=== PATIENT | male | born 1970 | race Caucasian/White ===

== ENCOUNTER 2020-09-18 12:53 | Inpatient (IN) | payer SELFPAY ==
--- NOTE | 2020-09-18 15:03 | ECG_ITS ---
Test Reason : ABDOMINAL/BACK PAIN Blood Pressure : / mmHG Vent. Rate : 078 BPM Atrial Rate : 078 BPM P-R Int : 136 ms QRS Dur : 090 ms QT Int : 416 ms P-R-T Axes : 054 036 018 degrees QTc Int : 474 ms Normal sinus rhythm with sinus arrhythmia Minimal voltage criteria for LVH, may be normal variant Nonspecific ST and T wave abnormality Abnormal ECG No previous ECGs available Referred By: Ranjana Jones Electronically Signed By:ROBLES BERKOWITZ MD
--- NOTE | 2020-09-18 15:04 | XR_ITS ---
EXAMINATION: 1. RADIOGRAPHS CHEST 2. RADIOGRAPHS LUMBAR SPINE CLINICAL INFORMATION: Intermittent right-sided chest pain and arm tingling. Low back pain. COMPARISON: Chest x-ray 09/14/2019 TECHNIQUE: 2 views of the chest and 3 views of the lumbar spine were obtained. FINDINGS: CHEST: The cardiac silhouette is normal in size. The lungs are well aerated. There is no lobar consolidation. No pleural effusion or pneumothorax. No gross abnormality of the visualized thoracic spine. LUMBAR SPINE: 5 nonrib-bearing lumbar vertebral bodies are visualized. Alignment is within normal limits. Vertebral body heights and disc spaces are maintained. Sacroiliac joints are symmetric. XR/XR chest 2V IMPRESSION: 1. No acute pulmonary pathology. 2. Unremarkable radiographs of the lumbar spine.
--- NOTE | 2020-09-18 15:10 | PC.NURSE ---
PT TAKEN TO CT SCAN VIA STRETCHER
--- NOTE | 2020-09-18 15:14 | XR_ITS ---
EXAMINATION: 1. RADIOGRAPHS CHEST 2. RADIOGRAPHS LUMBAR SPINE CLINICAL INFORMATION: Intermittent right-sided chest pain and arm tingling. Low back pain. COMPARISON: Chest x-ray 09/14/2019 TECHNIQUE: 2 views of the chest and 3 views of the lumbar spine were obtained. FINDINGS: CHEST: The cardiac silhouette is normal in size. The lungs are well aerated. There is no lobar consolidation. No pleural effusion or pneumothorax. No gross abnormality of the visualized thoracic spine. LUMBAR SPINE: 5 nonrib-bearing lumbar vertebral bodies are visualized. Alignment is within normal limits. Vertebral body heights and disc spaces are maintained. Sacroiliac joints are symmetric. XR/XR lumbar spine 2-3V IMPRESSION: 1. No acute pulmonary pathology. 2. Unremarkable radiographs of the lumbar spine.
[2020-09-18] MEDS: LORazepam 1 MG TABLET PO (15:19)
--- NOTE | 2020-09-18 15:20 | PC.NURSE ---
pt asking if he can take some time to let anxiety medication set in before iv placement.
--- NOTE | 2020-09-18 16:32 | ED.GENADULT ---
HPI - General Adult General Chief complaint: Back Pain/Injury Stated complaint: back and abdominal pain Time Seen by Provider: 09/18/20 14:30 Source: patient Mode of arrival: ambulatory Limitations: no limitations History of Present Illness HPI narrative: 50yoM c No Sig PMHx reports a chronic hx of upper back pain although also has not seen a PCP in years presenting to the ED c c/o intermittent Right sided chest pain, Right arm tingling, SOB with laying down flat/exertion, right abdominal pain and lower back pain for the past 1-2 weeks. Denies radiating of the chest pain. Denies recent travel or sick contacts although patient works at [employer]. Denies any other symptom complaints or concerns at this time. Related Data Allergies Allergy/AdvReac Type Severity Reaction Status Date / Time No Known Allergies Allergy Unverified 07/21/20 17:31 Review of Systems Review of Systems: Constitutional : No Weight loss, No Fever, No Chills, No Night Sweats, No Fatigue, No Malaise ENT/Mouth : No Hearing loss, No Ear Pain, No Nasal Congestion, No Sinus Pain, No Hoarseness, No sore throat, No Rhinorrhea, No Swallowing Difficulty Eyes: No Eye Pain, No Swelling, No Redness, No Foreign Body, No Discharge, No Vision Changes Cardiovascular : + SOB, + Dyspnea on Exertion, + Orthopnea, + Chest pain, No Edema, No extremity swelling, No Palpitations Respiratory : No Cough, No Sputum, No Wheezing, + Dyspnea Gastrointestinal : No Nausea, No Vomiting, No Diarrhea, + abdominal Pain, No Hematochezia, No Melena Genitourinary : No irregular bleeding, No Dysuria, No Urinary Frequency, No Hematuria, No Urinary Incontinence, No Urgency, No Flank Pain, No Urinary Flow Changes, No Hesitancy Musculoskeletal : + Neck and Back pain, No Joint Swelling Skin : No Skin Lesions, No rash Neuro : No Weakness, No Numbness, No Paresthesias, No Loss of Consciousness, No Dizziness, No Headache Psych : No Anxiety/Panic, No Depression, No SI/HI/AH/VH Heme/Lymph: No Bruising, No Bleeding,No Lymphadenopathy Endocrine : No Polyuria, No Polydipsia, No Temperature Intolerance Yes all other systems are reviewed and are negative [facility] Past Medical History Attestation statement: The following information was validated with the patient. Medical History No known health problems Social History Social History Advance Directives: No Advance Directives Information Provided: Yes Physical Exam Vital Signs: Vital Signs: Last Vital Signs Temp 98.1 F 09/18/20 16:43 Pulse 78 09/18/20 16:43 Resp 14 09/18/20 16:43 BP 141/77 H 09/18/20 16:43 Pulse Ox 98 09/18/20 16:43 Body Mass Index 27.3 vital signs have been reviewed as normal and appeared to be correct. Blood pressure normal. Heart rate normal. Respiration rate normal. Temperature normal. Oxygen saturation normal. Appearance: Alert. Oriented X3. No acute distress. Head: Normal external exam. Normocephalic. Atraumatic. Eyes: PERRLA. EOMI. Conjunctiva and sclera normal. Eyelids normal. ENT: Pharynx normal. Uvula midline. Moist mucous membranes. Neck: Normal inspection. Neck supple. FROM. No adenopathy. No meningeal signs. CVS: Normal heart rate and rhythm. Heart sound normal. No murmurs noted. Pulses normal throughout. Respiratory: No respiratory distress. Painless inspiration. Breath sounds normal. No wheezes/rales/rhonchi noted. Chest nontender. No accessory muscle usage noted or decreased air movement noted. Abdomen: Soft and nontender. Bowel sounds normal in all 4 quadrants. No distention noted. No organomegaly noted. No visible injury noted. Back: No CVA tenderness. Full range of motion noted. No obvious deformities, or edema. Mild para-spinal muscular tenderness from lumbar region to coccyx. Full ROM in back and lower extremities. 5/5 strength hip extension/flexion, abduction, adduction. Mild Lumbar pain with hip flexion against resistance. Straight leg raise test negative on right; Straight leg raise test negative on left; Reflexes normal ankle and knee bilaterally; EHL motor strength normal bilaterally Skin: Skin warm and dry. Normal skin color. Normal skin turgor. No rashes/lesions/lacerations noted. Extremities: No lower extremity edema. Extremities exhibit normal range of motion. Extremities nontender. Neuro: Oriented X 3. No motor deficit. No sensory deficit. Reflexes normal. Course Course Course Narrative: 16:30pm - 50yoM c No Sig PMHx reports a chronic hx of upper back pain although also has not seen a PCP in years presenting to the ED c c/o intermittent Right sided chest pain, Right arm tingling, SOB with laying down flat/exertion, right abdominal pain and lower back pain for the past 1-2 weeks. - Concern for ACS vs Muscular strain. - Plan: Labs, CXR, EKG, Lumbar spine Xray Reevaluation(s) Reevaluation #1: - D-Dimer elevated at 896. BUN 28. Total bilirubin 1.2. Troponin 5.7. Chest x-ray within normal limits no acute processes noted. Lumbar spine x-ray within normal limits no acute processes noted. - due to D-dimer being elevated will obtain a CTA of chest to rule out PE or any other acute processes, CT scan of brain, CT scan of abdomen and pelvis due to patient's abdominal pain. Will repeat a troponin at 19:25 due to 1st troponin was elevated then re-evaluate. Sign out the candy at this time. Time: 17:08 Medical Decision Making Medical Records Medical records reviewed: Yes I reviewed the patient's medical records. Lab Data Lab results reviewed: Yes I reviewed the patient's lab results. Result diagrams: 09/18/20 16:25 09/18/20 16:25 Labs: Lab Results 09/18/20 09/18/20 09/18/20 Range/Units 16:25 16:25 16:25 WBC 9.7 (4.8-10.8) X10*3/uL RBC 5.13 (4.60-5.80) X10*6/uL Hgb 15.0 (14.0-18.0) g/dl Hct 45.0 (42-52) % MCV 87.7 (80-98) fL MCH 29.2 (27.0-33.0) pg MCHC 33.3 (31.0-36.0) g/dl RDW 13.3 (11.0-16.0) % Plt Count 287 (160-400) X10*3/uL MPV 9.8 (9.4-12.4) fL Immature Gran % (Auto) 0.8 H (0.0-0.4) % Neut % (Auto) 57.1 (45-73) % Lymph % (Auto) 28.3 (20-40) % Riley % (Auto) 8.1 (2-11) % Eos % (Auto) 5.2 H (0-4) % Baso % (Auto) 0.5 (0-2) % Lymph # (Auto) 2.7 (1.2-4.9) X10*3/uL Riley # (Auto) 0.8 (0.1-1.2) X10*3/uL Eos # (Auto) 0.5 H (0.0-0.4) X10*3/uL Baso # (Auto) 0.1 (0.0-0.2) X10*3/uL Abs Immat Gran (auto) 0.08 H (0.00-0.03) X10*3/uL Absolute Neuts (auto) 5.5 (2.0-8.3) X10*3/uL Absolute Nucleated RBC 0.000 (0.0-0.012) X10*3/uL Nucleated RBC % (auto) 0.0 (0.0-0.2) /100WBC PT 14.9 H (10.8-13.0) SEC INR 1.3 H (0.9-1.1) D-Dimer 896 NG/ML Sodium 137 (135-145) mmol/L Potassium 3.8 (3.3-5.1) mmol/l Chloride 99 (96-108) mmol/L Carbon Dioxide 28 (22-29) mmol/L Anion Gap 14 (12-20) BUN 28 H (9-16) mg/dL Creatinine 1.28 (0.5-1.4) mg/dL Estim Creat Clear Calc 70.5 Estimated GFR 60 Random Glucose 99 (60-115) mg/dL Calcium 8.7 (8.4-10.2) mg/dL Magnesium 2.3 (1.6-2.6) mg/dL Total Bilirubin 1.2 H (0.0-1.0) mg/dL Direct Bilirubin 0.5 (0.0-0.5) mg/dL AST 22 (5-37) U/L ALT 21 (0-40) U/L Alkaline Phosphatase 82 (39-117) U/L Troponin I High Sens (<3.5-35.0) ng/L B-Natriuretic Peptide (<100) pg/mL Total Protein 7.4 (6.5-8.0) g/dL Albumin 4.0 (3.5-5.0) g/dL Urine Color Urine Appearance Urine pH (5.0-8.0) Ur Specific [place] (1.005-1.025) Urine Protein (NEG-TRACE) MG/DL Urine Glucose (UA) (NEG) MG/DL Urine Ketones (NEG) MG/DL Urine Blood (NEG) Urine Nitrite (NEG) Ur Leukocyte Esterase (NEG) Urine RBC (0) /HPF Urine WBC (0-4) /HPF Ur Squamous Epith Cells /LPF Amorphous Sediment /LPF Urine Bacteria /LPF Granular Casts /LPF Urine Mucus /LPF 09/18/20 09/18/20 Range/Units 16:25 16:25 WBC (4.8-10.8) X10*3/uL RBC (4.60-5.80) X10*6/uL Hgb (14.0-18.0) g/dl Hct (42-52) % MCV (80-98) fL MCH (27.0-33.0) pg MCHC (31.0-36.0) g/dl RDW (11.0-16.0) % Plt Count (160-400) X10*3/uL MPV (9.4-12.4) fL Immature Gran % (Auto) (0.0-0.4) % Neut % (Auto) (45-73) % Lymph % (Auto) (20-40) % Riley % (Auto) (2-11) % Eos % (Auto) (0-4) % Baso % (Auto) (0-2) % Lymph # (Auto) (1.2-4.9) X10*3/uL Riley # (Auto) (0.1-1.2) X10*3/uL Eos # (Auto) (0.0-0.4) X10*3/uL Baso # (Auto) (0.0-0.2) X10*3/uL Abs Immat Gran (auto) (0.00-0.03) X10*3/uL Absolute Neuts (auto) (2.0-8.3) X10*3/uL Absolute Nucleated RBC (0.0-0.012) X10*3/uL Nucleated RBC % (auto) (0.0-0.2) /100WBC PT (10.8-13.0) SEC INR (0.9-1.1) D-Dimer NG/ML Sodium (135-145) mmol/L Potassium (3.3-5.1) mmol/l Chloride (96-108) mmol/L Carbon Dioxide (22-29) mmol/L Anion Gap (12-20) BUN (9-16) mg/dL Creatinine (0.5-1.4) mg/dL Estim Creat Clear Calc Estimated GFR Random Glucose (60-115) mg/dL Calcium (8.4-10.2) mg/dL Magnesium (1.6-2.6) mg/dL Total Bilirubin (0.0-1.0) mg/dL Direct Bilirubin (0.0-0.5) mg/dL AST (5-37) U/L ALT (0-40) U/L Alkaline Phosphatase (39-117) U/L Troponin I High Sens 5.7 (<3.5-35.0) ng/L B-Natriuretic Peptide < 10 (<100) pg/mL Total Protein (6.5-8.0) g/dL Albumin (3.5-5.0) g/dL Urine Color DARK YELLOW Urine Appearance CLEAR Urine pH 5.5 (5.0-8.0) Ur Specific [place] >= 1.030 H (1.005-1.025) Urine Protein 1+ H (NEG-TRACE) MG/DL Urine Glucose (UA) NEG (NEG) MG/DL Urine Ketones NEG (NEG) MG/DL Urine Blood 3+ H (NEG) Urine Nitrite NEG (NEG) Ur Leukocyte Esterase NEG (NEG) Urine RBC 1-4 (0) /HPF Urine WBC 0-2 (0-4) /HPF Ur Squamous Epith Cells 2+ /LPF Amorphous Sediment 1+ /LPF Urine Bacteria TRACE /LPF Granular Casts 0-2 /LPF Urine Mucus 2+ /LPF Imaging Data cxr and lumar spine xray: Attestation: I personally reviewed and interpreted this imaging study as follows: Radiologist's impression: IMPRESSION: 1. No acute pulmonary pathology. 2. Unremarkable radiographs of the lumbar spine. ECG Data Attestation: I personally reviewed and interpreted this ECG as follows: Interpretation: Normal sinus rhythm with sinus arrhythmia with ventricular rate of 78 with minimal LVH nonspecific ST and T wave abnormalities normal QT/QTC interval. No acute ischemic changes. No prior EKGs to compare to.
[2020-09-18 16:34] LABS: Basophils Absolute Auto 0.1 X10*3/uL (0.0-0.2); Basophils Percent Auto 0.5 % (0-2); Eosinophils Absolute Auto 0.5 X10*3/uL (0.0-0.4); Eosinophils Percent Auto 5.2 % (0-4); Imm Gran Abs Auto 0.08 X10*3/uL (0.00-0.03); Imm Gran Pct Auto 0.8 % (0.0-0.4); Lymphocytes Absolute Auto 2.7 X10*3/uL (1.2-4.9); Lymphocytes Percent Auto 28.3 % (20-40); MANUAL DIFF FLAG NO; Mean Corpuscular HGB Conc 33.3 g/dl (31.0-36.0); Mean Corpuscular Hemoglobin 29.2 pg (27.0-33.0); Mean Corpuscular Volume 87.7 fL (80-98); Mean Platelet Volume 9.8 fL (9.4-12.4); Monocytes Absolute Auto 0.8 X10*3/uL (0.1-1.2); Monocytes Percent Auto 8.1 % (2-11); Neutrophils Absolute Auto 5.5 X10*3/uL (2.0-8.3); Neutrophils Percent Auto 57.1 % (45-73); Platelet Count 287 X10*3/uL (160-400); Red Blood Count 5.13 X10*6/uL (4.60-5.80); Red Cell Distribution Width 13.3 % (11.0-16.0); White Blood Count 9.7 X10*3/uL (4.8-10.8)
[2020-09-18 16:37] LABS: Glucose Urine UA NEG (NEG); Leukocyte Esterase Urine NEG (NEG); Nitrite Urine NEG (NEG); PH 5.5 (5.0-8.0); Specific Gravity - Urine >= 1.030 (1.005-1.025); Urine Blood 3+ (NEG); Urine Ketones NEG (NEG); Urine Protein 1+ MG/DL (NEG-TRACE)
[2020-09-18 16:41] LABS: INTERNATIONAL NORM RATIO 1.3 (0.9-1.1); Prothrombin Time 14.9 SEC (10.8-13.0)
[2020-09-18 16:43] VITALS: BP 141/77; PULSE 78; RESP 14; TEMP 36.7; O2SAT 98; BMI 27.3
[2020-09-18 16:43] LABS: Appearance Urine CLEAR; Color Urine DARK YELLOW
[2020-09-18 16:44] LABS: D Dimer 896 NG/ML
[2020-09-18] MEDS: 0.9 % Sodium Chloride 1,000 ML 999 ML IVCONT (16:46)
[2020-09-18 16:51] LABS: Amorphous Sediment Urine 1+ /LPF; Bacteria Urine TRACE /LPF; Granular Casts Urine 0-2 /LPF; Mucus Urine 2+ /LPF; Squamous Epithelial Cell Urine 2+ /LPF; WBC Urine 0-2 /HPF (0-4)
[2020-09-18 16:56] LABS: Alanine Aminotransferase 21 U/L (0-40); Alkaline Phosphatase 82 U/L (39-117); Anion Gap 14 (12-20); Aspartate Amino Transferase 22 U/L (5-37); Bilirubin Direct 0.5 mg/dL (0.0-0.5); Bilirubin Total 1.2 mg/dL (0.0-1.0); Blood Urea Nitrogen 28 mg/dL (9-16); Calcium 8.7 mg/dL (8.4-10.2); Carbon Dioxide 28 mmol/L (22-29); Chloride 99 mmol/L (96-108); Creatinine Clr Calc Pharmacy 70.5; Estimated Glomerular Filt Rate 60; Glucose Random 99 mg/dL (60-115); Magnesium 2.3 mg/dL (1.6-2.6); Potassium 3.8 mmol/l (3.3-5.1); Sodium 137 mmol/L (135-145); Total Protein 7.4 g/dL (6.5-8.0)
[2020-09-18 17:02] LABS: B Type Natriuretic Peptide < 10 pg/mL (<100); Troponin-I High Sensitivity 5.7 ng/L (<3.5-35.0)
--- NOTE | 2020-09-18 17:06 | CT_ITS ---
EXAMINATION: CT HEAD WITHOUT CONTRAST CLINICAL INFORMATION: Dizziness COMPARISON: None TECHNIQUE: Contiguous axial imaging was performed from the skull base to vertex without intravenous administration of contrast. This CT examination was performed using dose optimization techniques as appropriate, variously including the following: *Automated exposure control *Adjustment of mA and/or kV according to patient size (this includes techniques or standardized protocols for targeted exams where dose is matched to indication/reason for exam; i.e. extremities or head) *Use of iterative reconstruction technique DLP: 2163 mGy-cm FINDINGS: There is no evidence of acute intracranial hemorrhage or territorial infarction. No abnormal mass effect or midline shift is seen. Alonso to white matter differentiation is well preserved. No extra-axial fluid collections are identified. The ventricles are normal in size. There is no abnormal attenuation within the brain parenchyma. The osseous structures and soft tissues are normal. The mastoid air cells and visualized portions of the paranasal sinuses are well aerated. CT/CT head/brain wo con IMPRESSION: No acute intracranial pathology.
--- NOTE | 2020-09-18 17:06 | CT_ITS ---
EXAMINATION CTA CHEST (pulmonary artery urogram) CT ABDOMEN AND PELVIS WITH CONTRAST CLINICAL INFORMATION: Chest pain and shortness of breath COMPARISON: None. TECHNIQUE: Multidetector volumetric CT imaging of the chest, abdomen and pelvis was obtained after the administration of 85 mL of intravenous Omnipaque 350 without immediate adverse reactions. Postcontrast imaging through the chest was carried out during the pulmonary angiographic phase. Imaging of the abdomen and pelvis was performed during the portal venous phase. Multiplanar reformats and maximal intensity projection images created on an independent workstation are reviewed. This CT examination was performed using dose optimization techniques as appropriate, variously including the following: *Automated exposure control *Adjustment of mA and/or kV according to patient size (this includes techniques or standardized protocols for targeted exams where dose is matched to indication/reason for exam; i.e. extremities or head) *Use of iterative reconstruction technique DLP: 2163 mGy-cm. FINDINGS: CHEST VASCULAR: No evidence of pulmonary embolism. Great vessels normal caliber. No aortic dissection. LUNGS/PLEURA: The lungs are clear with no evidence of inflammation or nodules. Mild right basilar subsegmental atelectasis. There is no pleural effusion. No pleural mass or thickening. MEDIASTINUM/MANNY: Heart normal in size without pericardial effusion. No mediastinal or hilar adenopathy. Central airways are patent. Esophagus unremarkable. Imaged lower neck is normal. CHEST WALL/AXILLA: Unremarkable. ABDOMEN/PELVIS HEPATOBILIARY: Liver normal in size, contour and morphology. No suspicious lesions. Gallbladder is markedly abnormal showing wall thickening and pericholecystic fat stranding. The pericholecystic inflammatory changes extend into the haley hepatis. No intra or extrahepatic biliary dilatation. PANCREAS: Unremarkable. SPLEEN: Unremarkable. ADRENAL GLANDS: Unremarkable. KIDNEYS, URETERS AND BLADDER: Kidneys normal in size, axis and morphology demonstrating symmetric enhancement. There is a 1.2 cm simple cyst within the medial cortex of the right kidney. No hydronephrosis or urinary calculi. Ureters normal in course and caliber. Bladder grossly unremarkable. GASTROINTESTINAL TRACT: No intestinal obstruction or inflammation. Incidental diverticulum emanating from the descending duodenum, posterior to the pancreatic head. Scattered sigmoid colonic diverticula without evidence of diverticulitis. Normal appendix. Incidental submucosal fat deposition within the ascending colon, nonspecific. PELVIC VISCERA: Unremarkable. LYMPH NODES: No lymphadenopathy. PERITONEUM/BODY WALL: Unremarkable. VASCULAR STRUCTURES: Aorta mildly atherosclerotic but normal caliber. Patent vascular structures. OSSEOUS STRUCTURES No acute or suspicious osseous abnormalities. CT/CT angio chest PE protocol IMPRESSION: CT PULMONARY ANGIOGRAM: No evidence of pulmonary embolism. No acute pulmonary process. CT ABDOMEN/PELVIS: Markedly inflamed gallbladder compatible with cholecystitis. Scattered left colonic diverticula without evidence of diverticulitis.
--- NOTE | 2020-09-18 17:55 | PC.NURSE ---
pt taken to ct scan via stretcher,
[2020-09-18] MEDS: iohexoL 350 MG/ML 100 ML INFUS..BTL IV (18:19)
--- NOTE | 2020-09-18 19:21 | US_ITS ---
EXAMINATION: US ABDOMEN LIMITED CLINICAL INFORMATION: Cholecystitis.. COMPARISON: CT performed earlier same date. TECHNIQUE: Real-time imaging of the gallbladder and common bile duct. FINDINGS: GALLBLADDER: Sludge and stones are present within the gallbladder, which is edematous wall thickening, and intramural hyperemia and pericholecystic inflammation. Sonographic Oliveros sign is positive. COMMON BILE DUCT: Normal in caliber measuring 0.6 cm in diameter. US/US abdomen limited IMPRESSION: Sonographic findings compatible with cholecystitis.
[2020-09-18] MEDS: Piperacillin Sodium/Tazobactam 3.375 GM in 0.9 % Sodium Chloride 50 ML IV (19:39)
[2020-09-18 19:57] LABS: Lactic Acid 0.8 mmol/L (0.5-2.0)
[2020-09-18 20:07] LABS: Troponin-I High Sensitivity 5.2 ng/L (<3.5-35.0)
[2020-09-18 21:11] LABS: COVID-19 Test Negative (Negative)
--- NOTE | 2020-09-18 21:37 | P.CONGS_ITS ---
History of Present Illness Consult details Consult date: 09/18/20 Requesting physician: Flower Connor Narrative: 50 yo male w/out any PMHx presents to the [place] ED for multiple complaints including Right sided ABD/Back pain which has been ongoing for 1-2 weeks. Additionally he complains of intermittent Right sided chest pain, Right arm tingling, SOB with laying down flat/exertion. Denies radiating of the chest pain. Denies any other symptom complaints or concerns at this time. Denies vomiting or diarrhea though he did have some nausea. He had multiple test performed including head, chest and ABD CT's. Chest and Lumbar spine XR's. ABD CT suggested cholecystitis and an ABD U/S confirmed cholecystits w/ stones. WBC 9.7, BUN 28, Tbili 1.2 D-Dimer elevated at 896. Troponin 5.7. VSS. EKG showed NSR, no ischemic changes. Surgery was consulted for further evaluation and care. He was assessed at bed- side. He states he is feeling better and that his chest and back pain has resolved. He continues to complain of Right-sided ABD pain but currently with pain medications it is a 3/10. Review of Systems Constitutional: Constitutional: Reports as per HPI Cardiovascular: Cardiovascular: Reports chest pain, Reports dyspnea and Reports orthopnea Respiratory: Respiratory: Reports dyspnea Gastrointestinal: Gastrointestinal: Reports abdominal pain Musculoskeletal: Musculoskeletal: Reports tingling (Right arm) Neurologic: Reports tingling (Right arm) [facility] Past Medical History Medical History No known health problems Social History Social History Alcohol intake: current Alcohol intake frequency: holidays/special occasions only Alcohol type: beer Smoking Status: Never smoker Substance Use Type: Marijuana service: No Current occupational status: employed Meds Allergies Allergy/AdvReac Type Severity Reaction Status Date / Time No Known Allergies Allergy Verified 10/05/20 15:27 Physical Exam Vital Signs: Vital Signs: Last Vital Signs Temp 98.1 F 09/18/20 16:43 Pulse 78 09/18/20 16:43 Resp 14 09/18/20 16:43 BP 141/77 H 09/18/20 16:43 Pulse Ox 98 09/18/20 16:43 Body Mass Index 27.3 Const: General: no acute distress and poor hygiene Cardio: Rate: regular rate GI: Inspection: Yes normal to inspection and Yes scar (hernia repair) Palpation (GI): Soft to palpation and Tenderness to palpation present (GI) in the RLQ and in the RUQ Auscultation: normal bowel sounds : General: Yes no CVA tenderness Back/Spine/Pelvis: Back: no CVA tenderness Skin: General skin exam: no rashes or lesions noted Results Labs Result diagrams: 09/20/20 16:34 09/20/20 08:46 Labs: Abnormal lab results 09/18/20 09/18/20 09/18/20 Range/Units 16:25 16:25 16:25 Immature Gran % (Auto) 0.8 H (0.0-0.4) % Eos % (Auto) 5.2 H (0-4) % Eos # (Auto) 0.5 H (0.0-0.4) X10*3/uL Abs Immat Gran (auto) 0.08 H (0.00-0.03) X10*3/uL PT 14.9 H (10.8-13.0) SEC INR 1.3 H (0.9-1.1) BUN 28 H (9-16) mg/dL Total Bilirubin 1.2 H (0.0-1.0) mg/dL Ur Specific [place] (1.005-1.025) Urine Protein (NEG-TRACE) MG/DL Urine Blood (NEG) 09/18/20 Range/Units 16:25 Immature Gran % (Auto) (0.0-0.4) % Eos % (Auto) (0-4) % Eos # (Auto) (0.0-0.4) X10*3/uL Abs Immat Gran (auto) (0.00-0.03) X10*3/uL PT (10.8-13.0) SEC INR (0.9-1.1) BUN (9-16) mg/dL Total Bilirubin (0.0-1.0) mg/dL Ur Specific [place] >= 1.030 H (1.005-1.025) Urine Protein 1+ H (NEG-TRACE) MG/DL Urine Blood 3+ H (NEG) Short CBC 09/18/20 Range/Units 16:25 WBC 9.7 (4.8-10.8) X10*3/uL Hgb 15.0 (14.0-18.0) g/dl Hct 45.0 (42-52) % Plt Count 287 (160-400) X10*3/uL BMP 09/18/20 16:25 Sodium 137 Potassium 3.8 Chloride 99 Carbon Dioxide 28 BUN 28 H Creatinine 1.28 Calcium 8.7 Liver Function 09/18/20 Range/Units 16:25 Total Bilirubin 1.2 H (0.0-1.0) mg/dL Direct Bilirubin 0.5 (0.0-0.5) mg/dL AST 22 (5-37) U/L ALT 21 (0-40) U/L Alkaline Phosphatase 82 (39-117) U/L Albumin 4.0 (3.5-5.0) g/dL Urine 09/18/20 Range/Units 16:25 Urine Color DARK YELLOW Urine Appearance CLEAR Urine pH 5.5 (5.0-8.0) Ur Specific [place] >= 1.030 H (1.005-1.025) Urine Protein 1+ H (NEG-TRACE) MG/DL Urine Glucose (UA) NEG (NEG) MG/DL All other labs normal. Imaging Chest x-ray: report reviewed Abdomen CT scan report/results: report reviewed Abdominal ultrasound report/results: report reviewed EKG: report reviewed Assessment and Plan (1) Cholecystitis with cholelithiasis: Qualifiers: Biliary obstruction: without biliary obstruction Cholecystitis acuity: acute Cholelithiasis location: gallbladder Qualified Code(s): K80.00 - Calculus of gallbladder with acute cholecystitis without obstruction Status: Acute 50 yo male with 1-2 weeks of intermittent ABD/Back pain. His ABD exam has mild Right-side discomfort and his WBC is WNL. He is in no acute distress. Admit to med/surg Pain mgmt IVF Surgical intervention with CCY was discussed with the patient. Procedures Abscess I/D Date of Service: 09/19/20
[2020-09-18] MEDS: 0.9 % Sodium Chloride 1,000 ML 100 ML IVCONT (23:41)
[2020-09-18] MEDS: 0.9 % Sodium Chloride Flush 3 ML SYRINGE IVFLUSH (23:41)
[2020-09-18 23:58] VITALS: BP 125/74; PULSE 67; RESP 20; TEMP 36.7; O2SAT 98
[2020-09-19] VITALS (7 sets, daily range): BP systolic 118–153; BP diastolic 86–94; PULSE 60–77; RESP 16–20; TEMP 36.6–37.1; O2SAT 96–99
[2020-09-19 06:37] LABS: MANUAL DIFF FLAG NO
[2020-09-19 07:01] LABS: Basophils Percent Auto 0.6 % (0-2); Eosinophils Absolute Auto 0.3 X10*3/uL (0.0-0.4); Eosinophils Percent Auto 5.1 % (0-4); Hematocrit 37.8 % (42-52); Hemoglobin 12.5 g/dl (14.0-18.0); Imm Gran Abs Auto 0.06 X10*3/uL (0.00-0.03); Imm Gran Pct Auto 0.9 % (0.0-0.4); Lymphocytes Absolute Auto 1.8 X10*3/uL (1.2-4.9); Lymphocytes Percent Auto 27.2 % (20-40); Mean Corpuscular HGB Conc 33.1 g/dl (31.0-36.0); Mean Corpuscular Hemoglobin 29.1 pg (27.0-33.0); Mean Corpuscular Volume 87.9 fL (80-98); Monocytes Absolute Auto 0.5 X10*3/uL (0.1-1.2); Monocytes Percent Auto 6.8 % (2-11); Neutrophils Percent Auto 59.4 % (45-73); Platelet Count 216 X10*3/uL (160-400); Red Cell Distribution Width 13.1 % (11.0-16.0); White Blood Count 6.7 X10*3/uL (4.8-10.8)
[2020-09-19 07:34] LABS: Anion Gap 13 (12-20); Blood Urea Nitrogen 22 mg/dL (9-16); Carbon Dioxide 22 mmol/L (22-29); Chloride 105 mmol/L (96-108); Estimated Glomerular Filt Rate > 60; Glucose Random 86 mg/dL (60-115); Potassium 3.3 mmol/l (3.3-5.1); Sodium 137 mmol/L (135-145)
[2020-09-19 07:51] LABS: Calcium 7.8 mg/dL (8.4-10.2)
[2020-09-19] MEDS: Piperacillin Sodium/Tazobactam 3.375 GM in 0.9 % Sodium Chloride 50 ML IV ×3 (08:25→19:59)
[2020-09-19] MEDS: 0.9 % Sodium Chloride 1,000 ML 100 ML IVCONT ×2 (08:28→18:29)
--- NOTE | 2020-09-19 08:58 | P.PNGS_ITS ---
Subjective Subjective Interval history: minimal pain no fever Anxious Says he is actually better today Physical Exam Vital Signs: Vital Signs: Last Vital Signs Temp 97.9 F 09/19/20 07:31 Pulse 69 09/19/20 07:31 Resp 18 09/19/20 07:31 BP 153/88 H 09/19/20 07:31 Pulse Ox 96 09/19/20 07:31 Body Mass Index 27.3 Chemistry 09/18/20 09/19/20 16:25 06:24 Sodium 137 137 Potassium 3.8 3.3 Carbon Dioxide 28 22 BUN 28 H 22 H Creatinine 1.28 0.94 Calcium 8.7 7.8 L D Hematology 09/18/20 09/19/20 16:25 06:24 WBC 9.7 6.7 Hgb 15.0 12.5 L Plt Count 287 216 Urinalysis 09/18/20 16:25 Urine Color DARK YELLOW Urine Appearance CLEAR Urine pH 5.5 Ur Specific Gravit y >= 1.030 H Urine Protein 1+ H Urine Glucose (UA) NEG Urine Ketones NEG Urine Blood 3+ H Urine Nitrite NEG Ur Leukocyte Suzy ase NEG Urine RBC 1-4 Urine WBC 0-2 Ur Squamous Epith Cells 2+ Const: General: comfortable and no acute distress Eyes: Sclerae: sclerae normal GI: Other: Abdomen soft, nondistended, no guarding or rebound, very minimal tenderness right upper quadrant at this time Progress Note: A&P Assessment and plan (1) Cholecystitis with cholelithiasis: Status: Acute Assessment and Plan: I have reviewed his imaging studies - note of gallbladder inflammatory changes He states that he has had issues of pain on his abdomen on and off for several weeks He has very minimal pain or tenderness now White count is low Clinical picture suggestive more of subacute cholecystitis I did explain to him the option of proceeding with laparoscopic cholecystectomy with possible open. I reviewed with him the risks including but not limited to bleeding, infections, injury to the bowel, liver, bile duct, retained stones, as well as the benefits and his alternatives. He understands that with the inflammatory changes around this gallbladder at this time, the risks of the above are higher than normal. I also reviewed with him the option of IV antibiotic treatment and allow the inflammatory changes to settle down before proceeding with surgery. He is very anxious about having to proceed with possible open cholecystectomy. He wants to see if the antibiotics will work with him as he has very minimal symptoms. He understands that if he does not get better continues to have significant problems, we still have to proceed with cholecystectomy. He says he wants to go this route with IV antibiotics for now. His Adry jesus as involved during the discussion. I have will follow along closely Fall Risk Details Current Medications: Current Medications Generic Name Dose Route Start Last Admin Trade Name Freq PRN Reason Stop Dose Admin Acetaminophen 650 mg 09/18/20 21:53 Acetaminophen Supp 650 Mg Supp.Rect [place] Q6H PRN Pain, Mild (Pain Scale 1-3) Sodium Chloride 1,000 mls @ 100 mls/hr 09/18/20 22:00 09/19/20 08:28 Ns IVCONT 100 mls/hr .Q10H SARAH Administration Piperacillin Sod/Tazobactam 50 mls @ 100 mls/hr 09/19/20 08:00 09/19/20 08:25 Sod 3.375 gm/ Sodium Chloride IV 100 mls/hr Q6H SARAH Administration Morphine Sulfate 4 mg 09/18/20 21:53 Morphine Sulfate 4 Mg/Ml Cartridge IVPUSH Q4H PRN Pain, Severe (Pain Scale 7-10) Sodium Chloride 3 ml 09/19/20 00:00 09/19/20 08:24 0.9 % Sodium Chloride Flush 3 Ml Syringe IVFLUSH Not Given QSHIFT SARAH Time Spent With Patient Time: Total time spent is greater than 50% in coordination of care (as documented) at patient's floor/unit and/or counseling patient: Time with patient: 25 - 35 minutes Procedures Abscess I/D Date of Service: 09/19/20
[2020-09-19 11:12] LABS: Alanine Aminotransferase 15 U/L (0-40); Albumin Level 3.2 g/dL (3.5-5.0); Alkaline Phosphatase 68 U/L (39-117); Aspartate Amino Transferase 19 U/L (5-37); Bilirubin Direct 0.3 mg/dL (0.0-0.5); Bilirubin Total 0.9 mg/dL (0.0-1.0); Total Protein 6.1 g/dL (6.5-8.0)
--- NOTE | 2020-09-19 13:31 | MHC.CM.PN ---
Pt reports he lives at home with his and is independent with all care and mobility. Pt works, has no services and no DME. Pt is unsure what his insurance is at this time, he believes he may have insurance through work or [employer]. pt reports he does not have a PCP and has no had one for quite some time. Pt does not have a HCP but would like to complete one today naming his , Gela Christiansen ([phone]) as his agent. Pts current DC plan is home with no services. Pt will self arrange transportation
--- NOTE | 2020-09-19 14:39 | PM.EVENT ---
Event Note Date of Service: 09/19/20 Event Note: He states he continues to feel well Denies significant pain on the right upper quadrant Says pain is minimal Abdomen remained soft, minimal tenderness on the right upper quadrant no guarding rebound As discussed earlier with the patient and -he wants to continue IV antibiotic treatment in view of improvement He is very anxious about the possibility of conversion to open cholecystectomy so he wants to continue nonoperative treatment at this time Continue IV Zosyn On clear liquids Clinically looks well
[2020-09-19] MEDS: Morphine Sulfate 4 MG/ML CARTRIDGE IVPUSH (16:15)
[2020-09-19] MEDS: ondansetron HCL 4 MG/2 ML VIAL IVPUSH (16:27)
[2020-09-20] MEDS: Piperacillin Sodium/Tazobactam 3.375 GM in 0.9 % Sodium Chloride 50 ML IV ×4 (02:10→20:29)
[2020-09-20 03:36] VITALS: BP 151/92; PULSE 71; RESP 16; TEMP 36.7; O2SAT 98
[2020-09-20] MEDS: 0.9 % Sodium Chloride 1,000 ML 100 ML IVCONT ×2 (04:02→14:32)
[2020-09-20 07:37] VITALS: BP 142/95; PULSE 76; RESP 19; TEMP 37.1; O2SAT 96
--- NOTE | 2020-09-20 08:10 | PM.PNGS ---
Subjective Subjective Interval history: feels much better denies significant pain wants to eat says he had a good night Physical Exam Vital Signs: Vital Signs: Last Vital Signs Temp 98.7 F 09/20/20 07:37 Pulse 76 09/20/20 07:37 Resp 19 09/20/20 07:37 BP 142/95 H 09/20/20 07:37 Pulse Ox 96 09/20/20 07:37 Body Mass Index 27.3 Chemistry 09/18/20 09/19/20 16:25 06:24 Sodium 137 137 Potassium 3.8 3.3 Carbon Dioxide 28 22 BUN 28 H 22 H Creatinine 1.28 0.94 Calcium 8.7 7.8 L D Hematology 09/18/20 09/19/20 16:25 06:24 WBC 9.7 6.7 Hgb 15.0 12.5 L Plt Count 287 216 Urinalysis 09/18/20 16:25 Urine Color DARK YELLOW Urine Appearance CLEAR Urine pH 5.5 Ur Specific Gravit y >= 1.030 H Urine Protein 1+ H Urine Glucose (UA) NEG Urine Ketones NEG Urine Blood 3+ H Urine Nitrite NEG Ur Leukocyte Suzy ase NEG Urine RBC 1-4 Urine WBC 0-2 Ur Squamous Epith Cells 2+ Const: General: comfortable and no acute distress Cardio: Rhythm: regular rhythm GI: Other: soft, no guarding or rebound, no Oliveros's sign, no signficant tenderness on RUQ Progress Note: A&P Assessment and plan (1) Acute cholecystitis: Status: Acute Assessment and Plan: states he feels much better looks well denies pain now WBC normal pt has decided to not do surgery at this time - says he was very anxious about possiblity of open cholecystectomy and feels that he has improved significantly continue IV abx doing well Fall Risk Details Current Medications: Current Medications Generic Name Dose Route Start Last Admin Trade Name Freq PRN Reason Stop Dose Admin Acetaminophen 650 mg 09/18/20 21:53 Acetaminophen Supp 650 Mg Supp.Rect [place] Q6H PRN Pain, Mild (Pain Scale 1-3) Sodium Chloride 1,000 mls @ 100 mls/hr 09/18/20 22:00 09/20/20 04:02 Ns IVCONT 100 mls/hr .Q10H SARAH Administration Piperacillin Sod/Tazobactam 50 mls @ 100 mls/hr 09/19/20 08:00 09/20/20 07:55 Sod 3.375 gm/ Sodium Chloride IV Infused Q6H SARAH Infusion Morphine Sulfate 4 mg 09/18/20 21:53 09/19/20 16:15 Morphine Sulfate 4 Mg/Ml Cartridge IVPUSH 4 mg Q4H PRN Administration Pain, Severe (Pain Scale 7-10) Ondansetron HCl 4 mg 09/19/20 16:06 09/19/20 16:27 Ondansetron Hcl 4 Mg/2 Ml Vial IVPUSH 4 mg Q8H PRN Administration Nausea Sodium Chloride 3 ml 09/19/20 00:00 09/20/20 07:16 0.9 % Sodium Chloride Flush 3 Ml Syringe IVFLUSH Not Given QSHIFT SARAH Time Spent With Patient Time: Total time spent is greater than 50% in coordination of care (as documented) at patient's floor/unit and/or counseling patient: Time with patient: 15 - 24 minutes Procedures Abscess I/D Date of Service: 09/20/20
[2020-09-20 09:42] LABS: Anion Gap 11 (12-20); Blood Urea Nitrogen 10 mg/dL (9-16); Calcium 7.8 mg/dL (8.4-10.2); Carbon Dioxide 25 mmol/L (22-29); Chloride 106 mmol/L (96-108); Creatinine Clr Calc Pharmacy 99.1; Estimated Glomerular Filt Rate > 60; Glucose Random 92 mg/dL (60-115); Potassium 3.3 mmol/l (3.3-5.1); Sodium 139 mmol/L (135-145)
[2020-09-20 11:21] VITALS: BP 125/90; PULSE 67; RESP 18; TEMP 36.6; O2SAT 99
[2020-09-20 15:22] VITALS: BP 156/98; BP 165/87; PULSE 66; RESP 18; TEMP 37.3; O2SAT 99
[2020-09-20 16:55] LABS: Hematocrit 38.5 % (42-52); Hemoglobin 12.9 g/dl (14.0-18.0); Mean Corpuscular HGB Conc 33.5 g/dl (31.0-36.0); Mean Corpuscular Volume 86.5 fL (80-98); Mean Platelet Volume 9.8 fL (9.4-12.4); Platelet Count 253 X10*3/uL (160-400); Red Blood Count 4.45 X10*6/uL (4.60-5.80); Red Cell Distribution Width 12.8 % (11.0-16.0); White Blood Count 6.6 X10*3/uL (4.8-10.8)
[2020-09-20 19:11] VITALS: BP 161/97; PULSE 88; RESP 19; TEMP 36.3; O2SAT 99
[2020-09-20 23:34] VITALS: BP 157/95; PULSE 90; RESP 20; TEMP 36.2; O2SAT 98
[2020-09-21] MEDS: Piperacillin Sodium/Tazobactam 3.375 GM in 0.9 % Sodium Chloride 50 ML IV ×4 (02:58→20:24)
[2020-09-21 03:37] VITALS: BP 157/95; PULSE 69; RESP 20; TEMP 36.9; O2SAT 97
[2020-09-21] MEDS: 0.9 % Sodium Chloride Flush 3 ML SYRINGE IVFLUSH ×2 (07:33→14:12)
[2020-09-21 07:35] VITALS: BP 149/98; PULSE 87; RESP 18; TEMP 36.8; O2SAT 97
--- NOTE | 2020-09-21 08:09 | PM.PNGS ---
Subjective Subjective Interval history: Feels great this morning. Tolerated full liquids last night without any pain. Wants to try to eat. <Constance FabricioMELANIE mack Last Filed: 09/21/20 08:13> Physical Exam Vital Signs: Vital Signs: Last Vital Signs Temp 98.3 F 09/21/20 07:35 Pulse 87 09/21/20 07:35 Resp 18 09/21/20 07:35 BP 149/98 H 09/21/20 07:35 Pulse Ox 97 09/21/20 07:35 Body Mass Index 27.3 <Constance FABIOLA Regalado Last Filed: 09/21/20 08:13> Const: General: healthy appearing, comfortable, no acute distress and alert <KIM RodriguezTomas Last Filed: 09/21/20 08:13> Eyes: Sclerae: sclerae normal <Constance SouzaKIM mackTomas Filed: 09/21/20 08:13> Resp: Effort & Inspection: normal respiratory effort <Constance KIM RegaladoPaco Filed: 09/21/20 08:13> GI: Inspection: Yes normal to inspection and No distended <Constance SouzaKIM mackTomas Last Filed: 09/21/20 08:13> Palpation (GI): Soft to palpation, not firm, Tenderness to palpation present (GI) (mild RLQ tenderness to deep palpation), no guarding and No Rebound tenderness present <Constance KIM RegaladoTomas Last Filed: 09/21/20 08:13> Skin: General skin exam: no rashes or lesions noted <Constance KIM RegaladoTomas Last Filed: 09/21/20 08:13> Neuro: General: patient oriented x3 <ConstanceKIM CottoTomas [employer]rionics Last Filed: 09/21/20 08:13> Extrem: General: Yes no clubbing, cyanosis or edema <FABIOLA Rodriguez [employer] Last Filed: 09/21/20 08:13> Progress Note: A&P Assessment and plan (1) Acute cholecystitis: Status: Acute <FABIOLA RodriguezTapan [employer]rion[employer] Filed: 09/21/20 08:13> Assessment and Plan: Continues to do well with resolution of pain. VSS. Abd exam remains very benign. Will continue nonoperative measures- IV zosyn. Will advance to low fat diet. If tolerating low fat diet, stable for d/c to home likely tomorrow with PO course of abx with f/u in office for elective CCY. Encouraged OOB and ambulation. <Constance Regalado PA-C - Last Filed: 09/21/20 08:13> Continues to feel well Denies any abdominal pain No tenderness exam Tolerating full liquids Advance diet Seen and examined -agree with KIM Regalado <Shree Fraga MD - Last Filed: 09/21/20 09:15> Fall Risk Details Current Medications: Current Medications Generic Name Dose Route Start Last Admin Trade Name Freq PRN Reason Stop Dose Admin Acetaminophen 650 mg 09/18/20 21:53 Acetaminophen Supp 650 Mg Supp.Rect [place] Q6H PRN Pain, Mild (Pain Scale 1-3) Sodium Chloride 1,000 mls @ 60 mls/hr 09/18/20 22:00 09/21/20 05:10 Ns IVCONT Not Given .[id number] SARAH Piperacillin Sod/Tazobactam 50 mls @ 100 mls/hr 09/19/20 08:00 09/21/20 07:33 Sod 3.375 gm/ Sodium Chloride IV 100 mls/hr Q6H SARAH Administration Morphine Sulfate 4 mg 09/18/20 21:53 09/19/20 16:15 Morphine Sulfate 4 Mg/Ml Cartridge IVPUSH 4 mg Q4H PRN Administration Pain, Severe (Pain Scale 7-10) Ondansetron HCl 4 mg 09/19/20 16:06 09/19/20 16:27 Ondansetron Hcl 4 Mg/2 Ml Vial IVPUSH 4 mg Q8H PRN Administration Nausea Sodium Chloride 3 ml 09/19/20 00:00 09/21/20 07:33 0.9 % Sodium Chloride Flush 3 Ml Syringe IVFLUSH 3 ml QSHIFT SARAH Administration <Constance Regalado PA-C - Last Filed: 09/21/20 08:13> Time Spent With Patient Time: Total time spent is greater than 50% in coordination of care (as documented) at patient's floor/unit and/or counseling patient: <Constance Regalado PA-C - Last Filed: 09/21/20 08:13> Time with patient: 15 - 24 minutes <Constance Regalado PA-C - Last Filed: 09/21/20 08:13> No Severe Sepsis: No Severe Sepsis <Constance Regalado PA-C - Last Filed: 09/21/20 08:13> Procedures Abscess I/D Date of Service: 09/21/20 <Constance Regalado PA-C - Last Filed: 09/21/20 08:13>
[2020-09-21] MEDS: 0.9 % Sodium Chloride 1,000 ML 60 ML IVCONT (09:47)
--- NOTE | 2020-09-21 10:09 | MHC.CM.PN ---
FACE SHEET FAXED TO [facility] WITH A REQUEST TO ASSIST WITH INSURANCE BENEFITS. PATIENT DOES NOT BELIEVE HE HAS INSURANCE, HE WAS NOT SURE WHICH [place] PLAN TO CHOOSE. CASE MANAGEMENT FOLLOWING
--- NOTE | 2020-09-21 11:06 | MHC.CM.PN ---
PER [facility] [place] [facility] THEY HAVE REACHED OUT TO THE PATIENT TWICE, BUT HE REFUSES TO PAY FOR INSURANCE. PATIENT REPORTS BEING UNABLE TO AFFORD THE COST.
[2020-09-21 12:00] VITALS: BP 150/97; PULSE 84; RESP 19; TEMP 37.1; O2SAT 98
[2020-09-21 16:30] VITALS: BP 157/98; PULSE 80; RESP 16; TEMP 36.9; O2SAT 98
--- NOTE | 2020-09-21 16:58 | PC.NURSE ---
PT TOLERATING DIET WITHOUT N/V OR PAIN. STATES BM FORMED IN BR.
[2020-09-21 20:00] VITALS: BP 160/97; PULSE 72; RESP 20; TEMP 36.9; O2SAT 98
[2020-09-21 23:23] VITALS: BP 143/72; PULSE 78; RESP 20; TEMP 36.7; O2SAT 98
[2020-09-22] MEDS: Piperacillin Sodium/Tazobactam 3.375 GM in 0.9 % Sodium Chloride 50 ML IV ×2 (01:49→08:47)
[2020-09-22 03:39] VITALS: BP 159/90; PULSE 73; RESP 19; TEMP 36.5; O2SAT 98
[2020-09-22 07:09] VITALS: BP 148/99; PULSE 82; RESP 18; TEMP 36.2; O2SAT 97
--- NOTE | 2020-09-22 08:05 | PM.PNGS ---
Subjective Subjective Interval history: looks well denies complaints says he feels well did not sleep until 4am- says he was too excited about going home today Physical Exam Vital Signs: Vital Signs: Last Vital Signs Temp 97.1 F 09/22/20 07:09 Pulse 82 09/22/20 07:09 Resp 18 09/22/20 07:09 BP 148/99 H 09/22/20 07:09 Pulse Ox 97 09/22/20 07:09 Body Mass Index 27.3 Const: General: comfortable, no acute distress and alert Eyes: Sclerae: sclerae normal Cardio: Rate: regular rate Rhythm: regular rhythm GI: Other: soft, nondistended, no guarding or rebound, not tender, no Oliveros's Progress Note: A&P Assessment and plan (1) Acute cholecystitis: Status: Acute Assessment and Plan: has been doing well asymptomatic for more than 2 days no fever tolerating diet pt chose to do IV abx tx - was very anxious about possibility of open cholecystectomy; he also felt he was responding well to abx plan to dc home today on po ABX ffup in office - pt says he understands plan well Fall Risk Details Current Medications: Current Medications Generic Name Dose Route Start Last Admin Trade Name Freq PRN Reason Stop Dose Admin Acetaminophen 650 mg 09/18/20 21:53 Acetaminophen Supp 650 Mg Supp.Rect NE Q6H PRN Pain, Mild (Pain Scale 1-3) Piperacillin Sod/Tazobactam 50 mls @ 100 mls/hr 09/19/20 08:00 09/22/20 02:46 Sod 3.375 gm/ Sodium Chloride IV Infused Q6H SARAH Infusion Morphine Sulfate 4 mg 09/18/20 21:53 09/19/20 16:15 Morphine Sulfate 4 Mg/Ml Cartridge IVPUSH 4 mg Q4H PRN Administration Pain, Severe (Pain Scale 7-10) Ondansetron HCl 4 mg 09/19/20 16:06 09/19/20 16:27 Ondansetron Hcl 4 Mg/2 Ml Vial IVPUSH 4 mg Q8H PRN Administration Nausea Sodium Chloride 3 ml 09/19/20 00:00 09/22/20 00:05 0.9 % Sodium Chloride Flush 3 Ml Syringe IVFLUSH Not Given QSHIFT [facility] Time Spent With Patient Time: Total time spent is greater than 50% in coordination of care (as documented) at patient's floor/unit and/or counseling patient: Time with patient: 15 - 24 minutes Procedures Abscess I/D Date of Service: 09/22/20
--- NOTE | 2020-09-22 08:18 | MHC.CM.PN ---
PATIENT IS DISCHARGED HOME - SELF CARE. RN AWARE OF PLAN
--- NOTE | 2020-09-22 08:24 | P.DS_ITS ---
DS: Providers Provider Date of admission: 09/18/20 21:54 Primary care physician: No Physician Consults: 09/19/20 10:08 Consult to General Surgery Routine Consulting Provider: Shree Fraga Reason for consultation: cholecystitis Has provider been notified: Yes DS: Diagnosis Discharge Diagnosis (1) Acute cholecystitis: Status: Acute DS: Medications Discharge Medications Home Medications: Previous Rx's Medication Instructions Recorded amoxicillin-pot clavulanate 1 tab PO Q12H #12 tab 09/21/20 [Augmentin] DS: Summary Hospital Course Hospital Course: Brief HPI: 50 yo male w/out any PMHx presents to the [place] ED for multiple complaints including Right sided ABD/Back pain which has been ongoing for 1-2 weeks. Additionally he complains of intermittent Right sided chest pain, Right arm tingling, SOB with laying down flat/exertion. Denies radiating of the chest pain. Denies any other symptom complaints or concerns at this time. Denies vomiting or diarrhea though he did have some nausea. He had an extensive workup including head, chest and ABD CT scans, chest and Lumbar spine XR's. ABD CT suggested cholecystitis and an ABD U/S confirmed cholecystits w/ stones. Surgery was consulted for further evaluation and care. Hospital course: The patient was admitted to the surgical service under Dr. Shree Cordero. Treatment options were discussed with the patient including observation and IV abx versus proceeding with a laparoscopic cholecystectomy possible open. The patient adamantly wanted to avoid surgery and given he felt improved it was discussed to trial observation and IV antibiotics. His care was then transferred to Dr. Shree Fraga. The patient was continued on IV zosyn, IVF and clear liquids. His pain continued to improve and resolved. His diet was advanced slowly as tolerated to full liquids and then a low fat diet without recurrence of the abdominal pain. His abdominal exam remained benign. On the day of discharge, he was tolerating a solid diet without any symptoms. He felt significantly improved and back to baseline. He completed a 4 day course of IV zosyn and is to complete a course of PO Augmentin. The patient improved with nonoperative measures and possible eventual need for cholecystectomy was discussed and he should f/u with Dr. Fraga in office. Patient understands and agrees with plan. HE was discharged to home on 09/22/20 in stable condition. Status at Discharge Functional status at discharge: independent ambulation Overall status at discharge: patient is back to baseline Time Spent with Patient Time attestation: Total time spent providing and/or coordinating discharge services: Discharge coordination time: Less than 30 minutes Physical Exam Vital Signs: Vital Signs: Last Vital Signs Temp 97.1 F 09/22/20 07:09 Pulse 82 09/22/20 07:09 Resp 18 09/22/20 07:09 BP 148/99 H 09/22/20 07:09 Pulse Ox 97 09/22/20 07:09 Body Mass Index 27.3 Const: General: comfortable, no acute distress, well developed and alert Orientation/consciousness: patient oriented x3 Eyes: Sclerae: sclerae normal Resp: Effort & Inspection: normal respiratory effort Cardio: Rate: regular rate GI: Inspection: Yes normal to inspection and No distended Palpation (GI): Soft to palpation, nontender and No Rebound tenderness present Skin: General skin exam: no rashes or lesions noted Neuro: General: patient oriented x3 Extrem: General: Yes no clubbing, cyanosis or edema DS: Data Data Completed and Pending Labs on day of discharge: 09/18/20 15:03 ECG 12 lead EKG Stat EKG Documentation DIRECTED 0.9 % Sodium Chloride [Ns] 1,000 ml IVCONT 999 mls/hr 09/18/20 15:04 XR chest 2V Stat LORazepam [Ativan] 1 mg PO ONCE ONE 09/18/20 15:14 XR lumbar spine 2-3V Stat 09/18/20 16:25 B Type Natriuretic Peptide Stat Basic Metabolic Panel Stat D Dimer Stat Liver Panel Stat Magnesium Stat Prothrombin Time INR Stat Troponin-I High Sensitivity Stat 09/18/20 16:27 Complete Blood Count Auto Diff Stat 09/18/20 17:06 CT abdomen pelvis w con Stat CT angio chest PE protocol Stat CT head/brain wo con Stat 09/18/20 18:19 iohexoL 350 MG/ML [Omnipaque 350 MG/ML] 100 ml IV ONCE ONE 09/18/20 Dinner NPO Diet 09/18/20 19:13 Piperacillin Sodium/Tazobactam [Zosyn] 3.375 gm 0.9 % Sodium Chloride [Ns] 50 ml IV ONCE 09/18/20 19:21 US abdomen limited Stat 09/18/20 19:30 Lactic Acid Stat Troponin-I High Sensitivity Stat 09/18/20 19:33 Piperacillin Sodium/Tazobactam [Zosyn] 3.375 gm IV .STK-MED ONE 09/18/20 20:52 COVID-19 ID NOW (Cash) Stat 09/18/20 21:57 Transfer Order Routine 09/18/20 22:00 0.9 % Sodium Chloride [Ns] 1,000 ml IVCONT 60 mls/hr 09/19/20 06:24 Basic Metabolic Panel DAILY@0600 Complete Blood Count Auto Diff DAILY@0600 Liver Panel Urgent 09/19/20 08:20 Piperacillin Sodium/Tazobactam [Zosyn] 3.375 gm IV .STK-MED ONE 09/19/20 Breakfast Clear Liquid Diet 09/19/20 13:43 Piperacillin Sodium/Tazobactam [Zosyn] 3.375 gm IV .STK-MED ONE 09/19/20 19:45 Piperacillin Sodium/Tazobactam [Zosyn] 3.375 gm IV .STK-MED ONE 09/20/20 01:56 Piperacillin Sodium/Tazobactam [Zosyn] 3.375 gm IV .STK-MED ONE 09/20/20 07:16 Piperacillin Sodium/Tazobactam [Zosyn] 3.375 gm IV .STK-MED ONE 09/20/20 08:46 Basic Metabolic Panel Routine 09/20/20 14:22 Piperacillin Sodium/Tazobactam [Zosyn] 3.375 gm IV .STK-MED ONE 09/20/20 16:34 Complete Blood Count no Diff Routine 09/20/20 Dinner Full Liquid Diet 09/20/20 19:46 Piperacillin Sodium/Tazobactam [Zosyn] 3.375 gm IV .STK-MED ONE 09/21/20 02:56 Piperacillin Sodium/Tazobactam [Zosyn] 3.375 gm IV .STK-MED ONE 09/21/20 07:23 Piperacillin Sodium/Tazobactam [Zosyn] 3.375 gm IV .STK-MED ONE 09/21/20 14:02 Piperacillin Sodium/Tazobactam [Zosyn] 3.375 gm IV .STK-MED ONE 09/21/20 20:05 Piperacillin Sodium/Tazobactam [Zosyn] 3.375 gm IV .STK-MED ONE 09/22/20 01:35 Piperacillin Sodium/Tazobactam [Zosyn] 3.375 gm IV .STK-MED ONE Laboratory Last Values WBC 6.6 X10*3/uL (4.8-10.8) 09/20/20 16:34 RBC 4.45 X10*6/uL (4.60-5.80) L 09/20/20 16:34 Hgb 12.9 g/dl (14.0-18.0) L 09/20/20 16:34 Hct 38.5 % (42-52) L 09/20/20 16:34 MCV 86.5 fL (80-98) 09/20/20 16:34 MCH 29.0 pg (27.0-33.0) 09/20/20 16:34 MCHC 33.5 g/dl (31.0-36.0) 09/20/20 16:34 RDW 12.8 % (11.0-16.0) 09/20/20 16:34 Plt Count 253 X10*3/uL (160-400) 09/20/20 16:34 MPV 9.8 fL (9.4-12.4) 09/20/20 16:34 Immature Gran % (Auto) 0.9 % (0.0-0.4) H 09/19/20 06:24 Neut % (Auto) 59.4 % (45-73) 09/19/20 06:24 Lymph % (Auto) 27.2 % (20-40) 09/19/20 06:24 [place] % (Auto) 6.8 % (2-11) 09/19/20 06:24 Eos % (Auto) 5.1 % (0-4) H 09/19/20 06:24 Baso % (Auto) 0.6 % (0-2) 09/19/20 06:24 Lymph # (Auto) 1.8 X10*3/uL (1.2-4.9) 09/19/20 06:24 [place] # (Auto) 0.5 X10*3/uL (0.1-1.2) 09/19/20 06:24 Eos # (Auto) 0.3 X10*3/uL (0.0-0.4) 09/19/20 06:24 Baso # (Auto) 0.0 X10*3/uL (0.0-0.2) 09/19/20 06:24 Abs Immat Gran (auto) 0.06 X10*3/uL (0.00-0.03) H 09/19/20 06:24 Absolute Neuts (auto) 4.0 X10*3/uL (2.0-8.3) 09/19/20 06:24 Absolute Nucleated RBC 0.000 X10*3/uL (0.0-0.012) 09/20/20 16:34 Nucleated RBC % (auto) 0.0 /100WBC (0.0-0.2) 09/20/20 16:34 PT 14.9 SEC (10.8-13.0) H 09/18/20 16:25 INR 1.3 (0.9-1.1) H 09/18/20 16:25 D-Dimer 896 NG/ML 09/18/20 16:25 Sodium 139 mmol/L (135-145) 09/20/20 08:46 Potassium 3.3 mmol/l (3.3-5.1) 09/20/20 08:46 Chloride 106 mmol/L (96-108) 09/20/20 08:46 Carbon Dioxide 25 mmol/L (22-29) 09/20/20 08:46 Anion Gap 11 (12-20) L 09/20/20 08:46 BUN 10 mg/dL (9-16) D 09/20/20 08:46 Creatinine 0.91 mg/dL (0.5-1.4) 09/20/20 08:46 Estim Creat Clear Calc 99.1 09/20/20 08:46 Estimated GFR > 60 09/20/20 08:46 Random Glucose 92 mg/dL (60-115) 09/20/20 08:46 Lactic Acid 0.8 mmol/L (0.5-2.0) 09/18/20 19:30 Calcium 7.8 mg/dL (8.4-10.2) L 09/20/20 08:46 Magnesium 2.3 mg/dL (1.6-2.6) 09/18/20 16:25 Total Bilirubin 0.9 mg/dL (0.0-1.0) 09/19/20 06:24 Direct Bilirubin 0.3 mg/dL (0.0-0.5) 09/19/20 06:24 AST 19 U/L (5-37) 09/19/20 06:24 ALT 15 U/L (0-40) 09/19/20 06:24 Alkaline Phosphatase 68 U/L (39-117) 09/19/20 06:24 Troponin I High Sens 5.2 ng/L (<3.5-35.0) 09/18/20 19:30 B-Natriuretic Peptide < 10 pg/mL (<100) 09/18/20 16:25 Total Protein 6.1 g/dL (6.5-8.0) L 09/19/20 06:24 Albumin 3.2 g/dL (3.5-5.0) L 09/19/20 06:24 Urine Color DARK YELLOW 09/18/20 16:25 Urine Appearance CLEAR 09/18/20 16:25 Urine pH 5.5 (5.0-8.0) 09/18/20 16:25 Ur Specific [place] >= 1.030 (1.005-1.025) H 09/18/20 16:25 Urine Protein 1+ MG/DL (NEG-TRACE) H 09/18/20 16:25 Urine Glucose (UA) NEG MG/DL (NEG) 09/18/20 16:25 Urine Ketones NEG MG/DL (NEG) 09/18/20 16:25 Urine Blood 3+ (NEG) H 09/18/20 16:25 Urine Nitrite NEG (NEG) 09/18/20 16:25 Ur Leukocyte Esterase NEG (NEG) 09/18/20 16:25 Urine RBC 1-4 /HPF (0) 09/18/20 16:25 Urine WBC 0-2 /HPF (0-4) 09/18/20 16:25 Ur Squamous Epith Cells 2+ /LPF 09/18/20 16:25 Amorphous Sediment 1+ /LPF 09/18/20 16:25 Urine Bacteria TRACE /LPF 09/18/20 16:25 Granular Casts 0-2 /LPF 09/18/20 16:25 Urine Mucus 2+ /LPF 09/18/20 16:25 COVID-19 ([facility]) Negative (Negative) 11/15/20 20:52 COVID-19 Clin Com See Note 09/18/20 20:52 Preliminary micro results at discharge 09/18/20 19:30 Blood Culture - Preliminary Blood - Venous No growth after 48 hours. 09/18/20 19:30 Blood Culture - Preliminary Blood - Venous No growth after 48 hours. Discharge Plan Discharge Patient Disposition: Home, Self-Care Referrals: Shree Fraga MD [Physician] - 2 Weeks Physician,No [Primary Care Provider] - Discharge Medications: New amoxicillin-pot clavulanate [Augmentin] 500-125 mg tablet 1 tab PO Q12H Qty: 12 RF: 0 Discharge Orders: Discharge Order (Routine); Ordered 09/22/20 Ordered By: Constance Regalado Diet: low fat, low cholesterol Activity on Discharge: As tolerated Discharge Date/Time: 09/22/20 10:57 Visit Report Forms: Patient Portal Discharge page Care Plan Goals: Return to baseline health, resolution of symptoms Health Concerns: Acute cholecystitis Plan of Treatment: Nonoperative management with IV abx, transition to PO abx upon discharge
== END 2020-09-22 10:57 | disposition home or self-care (01) | DRG 446 ==
LOC: HO.ED 22:32 → HO.S3 22:40
PROVIDERS: Nurse Practitioner Family; Physician Assistant Medical; Physician Assistant Surgical; Admitting Provider Internal Medicine; Emergency Provider Emergency Medicine; Visit Provider Surgery
DX: K80.00 Calculus of gallbladder with acute cholecystitis without obstruction (principal); Z20.828 Contact with and (suspected) exposure to other viral communicable diseases; M54.9 Dorsalgia, unspecified
CPT/HCPCS: 36415; 70450; 71046; 71275; 72100; 74177; 76705; 80048; 80076; 81001; 83605; 83735; 83880; 84484; 85025; 85027; 85379; 85610; 87040; 87635; 93005; 96361; 96365; 99222; 99285; J2270; J2405; J2543; Q9967

== ENCOUNTER → 2020-10-05 15:18 | Outpatient (BNVA) | payer SELFPAY | PROVIDERS: Visit Provider Surgery | DX: K81.0 Acute cholecystitis (principal) | CPT/HCPCS: 99212 ==

== ENCOUNTER 2020-11-01 23:08 | Inpatient (IN) | payer MEDICAID, SELFPAY ==
[2020-11-01 23:14] VITALS: BP 190/108; PULSE 70; RESP 16; TEMP 36.3; O2SAT 97; BMI 25.0
[2020-11-01 23:37] LABS: Basophils Percent Auto 0.4 % (0-2); Eosinophils Absolute Auto 0.1 X10*3/uL (0.0-0.4); Eosinophils Percent Auto 0.5 % (0-4); Hemoglobin 14.6 g/dl (14.0-18.0); Imm Gran Abs Auto 0.04 X10*3/uL (0.00-0.03); Imm Gran Pct Auto 0.4 % (0.0-0.4); Lymphocytes Absolute Auto 1.2 X10*3/uL (1.2-4.9); Lymphocytes Percent Auto 12.8 % (20-40); MANUAL DIFF FLAG NO; Mean Corpuscular Hemoglobin 29.3 pg (27.0-33.0); Mean Corpuscular Volume 86.2 fL (80-98); Mean Platelet Volume 9.8 fL (9.4-12.4); Monocytes Absolute Auto 0.4 X10*3/uL (0.1-1.2); Monocytes Percent Auto 4.3 % (2-11); Neutrophils Absolute Auto 7.5 X10*3/uL (2.0-8.3); Neutrophils Percent Auto 81.6 % (45-73); Platelet Count 255 X10*3/uL (160-400); Red Blood Count 4.99 X10*6/uL (4.60-5.80); Red Cell Distribution Width 13.2 % (11.0-16.0); White Blood Count 9.2 X10*3/uL (4.8-10.8)
[2020-11-02] VITALS (7 sets, daily range): BP systolic 130–153; BP diastolic 83–100; PULSE 68–77; RESP 16–18; TEMP 36.5–36.9; O2SAT 95–99
[2020-11-02] LABS: Alanine Aminotransferase 278 U/L (0-40); Albumin Level 4.7 g/dL (3.5-5.0); Alkaline Phosphatase 167 U/L (39-117); Anion Gap 13 (12-20); Aspartate Amino Transferase 419 U/L (5-37); Bilirubin Total 2.9 mg/dL (0.0-1.0); Blood Urea Nitrogen 14 mg/dL (9-16); Calcium 9.6 mg/dL (8.4-10.2); Carbon Dioxide 26 mmol/L (22-29); Chloride 101 mmol/L (96-108); Creatinine Clr Calc Pharmacy 91.9; Estimated Glomerular Filt Rate > 60; Glucose Random 129 mg/dL (60-115); Lipase 71 U/L (8-78); Potassium 4.1 mmol/l (3.3-5.1); Sodium 136 mmol/L (135-145)
--- NOTE | 2020-11-02 | MR_ITS ---
EXAMINATION: MR ABDOMEN WITHOUT CONTRAST CLINICAL INFORMATION: Elevated liver function tests. Evaluate for common bile duct stone. COMPARISON: Previous CT of the abdomen and pelvis September 2020 and abdominal ultrasounds most recent from earlier the same day TECHNIQUE: MR abdomen is performed without gadolinium contrast. MRCP sequences were also performed. FINDINGS: LUNG BASES: The visualized lung bases are unremarkable. LIVER, GALLBLADDER, AND BILIARY TREE: There is a 1 cm cyst high in the dome of the right lobe of the liver. No other focal liver lesion is seen. The liver is normal in size and shape. The gallbladder is filled with gallstones. The gallbladder is upper normal in size. The gallbladder wall appears thickened measuring 5 to 6 mm and edematous questionable again suggestive of acute cholecystitis. There is no intrahepatic biliary duct dilatation. The extrahepatic bile ducts are slightly dilated. Common bile duct measures 0.8-0.9 cm. There is a 3 mm round filling defect in the distal common bile duct estimate of a stone. PANCREAS: Unremarkable. SPLEEN: Unremarkable. ADRENAL GLANDS: Unremarkable. KIDNEYS AND URETERS: There are 2 small right renal cysts. The kidneys are otherwise unremarkable. GASTROINTESTINAL TRACT: No bowel obstruction. No ascites or fluid collection. ABDOMINAL WALL: No significant hernia is appreciated. LYMPH NODES: No lymphadenopathy. VASCULAR: Unremarkable. OSSEOUS STRUCTURES: Marrow signal normal. MR/MR MRCP IMPRESSION: Gallstones. Upper normal-size gallbladder, gallbladder wall thickening and edema. Findings are suggestive of acute cholecystitis. Small simple cyst in the dome of the liver. Mild extrahepatic bile duct dilatation and small distal common bile duct stone. Small right renal cysts.
--- NOTE | 2020-11-02 00:32 | ED_ITS ---
HPI - Abdominal Pain General Chief Complaint: Abdominal Pain Stated Complaint: Abdominal Pain Time Seen by Provider: 11/02/20 00:31 Source: patient Mode of arrival: ambulatory History of Present Illness HPI narrative: This is a 50-year-old male who was noted to have prior cholecystitis but then discharged to plan for elective surgery and now presents with worsening right upper quadrant pain associated with nausea and an isolated episode of vomiting without fever or chills. Patient denies any urinary pain/burning/frequency. And although he states his pain was much worse earlier it is still present. Related Data Home Medications Medication Instructions Recorded Confirmed No Known Home Meds 11/02/20 11/02/20 Allergies Allergy/AdvReac Type Severity Reaction Status Date / Time No Known Allergies Allergy Verified 10/05/20 15:27 Review of Systems Review of Systems Pertinent positives and negatives as stated in HPI 10 point review of systems otherwise negative. Physical Exam Vital Signs: Vital Signs: Last Vital Signs Temp 97.3 F 11/01/20 23:14 Pulse 76 11/02/20 04:52 Resp 16 11/02/20 04:52 BP 153/97 H 11/02/20 04:52 Pulse Ox 98 11/02/20 04:52 Body Mass Index 25.0 VITAL SIGNS: Reviewed. GENERAL: Well developed, well nourished, in no acute distress. HEAD: Normocephalic/atraumatic, OROPHARYNX: no oral lesions noted, posterior pharynx clear and non-erythematous without noted tonsillar enlargement/erythema/exudates NECK: Supple, no adenopathy LUNGS: Normal breath sounds. No adventitious sounds or accessory muscle use. SpO2<97> CARDIOVASCULAR: Regular rate and rhythm without noted murmurs, no JVD or lower extremity edema. ABDOMEN: Soft, tenderness at the right upper quadrant, non-distended with bowel sounds. No rigidity. No guarding. No palpable masses or hernias noted MUSCULOSKELETAL: No tenderness, deformities, or effusions noted on gross inspection. EXTREMITIES: No cyanosis, clubbing or edema. SKIN: Inspection of the skin reveals no rashes, ulcerations, jaundice, pallor, or petechiae. NEUROLOGIC: Alert and oriented x 4. Course Course Course Narrative: This is a 50-year-old male with history and clinical presentation after reviewing all investigations is most consistent with choledocholithiasis. Case was discussed with GI please see below for recommen dations and then discussed with inpatient hospitalist team who was agreeable for admission. Reevaluation(s) Reevaluation #1: I discussed the case with Dr. Anna who recommends trending LFTs and MRCP in the morning. States no antibiotics at this time. MDM - Abdominal Pain Lab Data Result diagrams: 11/01/20 23:30 11/01/20 23:30 Labs: Lab Results 11/01/20 11/01/20 11/01/20 Range/Units 23:30 23:30 23:30 WBC 9.2 (4.8-10.8) X10*3/uL RBC 4.99 (4.60-5.80) X10*6/uL Hgb 14.6 (14.0-18.0) g/dl Hct 43.0 (42-52) % MCV 86.2 (80-98) fL MCH 29.3 (27.0-33.0) pg MCHC 34.0 (31.0-36.0) g/dl RDW 13.2 (11.0-16.0) % Plt Count 255 (160-400) X10*3/uL MPV 9.8 (9.4-12.4) fL Immature Gran % (Auto) 0.4 (0.0-0.4) % Neut % (Auto) 81.6 H (45-73) % Lymph % (Auto) 12.8 L (20-40) % Craig % (Auto) 4.3 (2-11) % Eos % (Auto) 0.5 (0-4) % Baso % (Auto) 0.4 (0-2) % Lymph # (Auto) 1.2 (1.2-4.9) X10*3/uL Craig # (Auto) 0.4 (0.1-1.2) X10*3/uL Eos # (Auto) 0.1 (0.0-0.4) X10*3/uL Baso # (Auto) 0.0 (0.0-0.2) X10*3/uL Abs Immat Gran (auto) 0.04 H (0.00-0.03) X10*3/uL Absolute Neuts (auto) 7.5 (2.0-8.3) X10*3/uL Absolute Nucleated RBC 0.000 (0.0-0.012) X10*3/uL Nucleated RBC % (auto) 0.0 (0.0-0.2) /100WBC Hold Blue Top SEE NOTE Sodium 136 (135-145) mmol/L Potassium 4.1 D (3.3-5.1) mmol/l Chloride 101 (96-108) mmol/L Carbon Dioxide 26 (22-29) mmol/L Anion Gap 13 (12-20) BUN 14 (9-16) mg/dL Creatinine 0.94 (0.5-1.4) mg/dL Estim Creat Clear Calc 91.9 Estimated GFR > 60 Random Glucose 129 H D (60-115) mg/dL Calcium 9.6 D (8.4-10.2) mg/dL Total Bilirubin 2.9 H (0.0-1.0) mg/dL AST 419 H (5-37) U/L ALT 278 H (0-40) U/L Alkaline Phosphatase 167 H D (39-117) U/L Total Protein 8.0 D (6.5-8.0) g/dL Albumin 4.7 D (3.5-5.0) g/dL Lipase (8-78) U/L Urine Color Urine Appearance Urine pH (5.0-8.0) Ur Specific [place] (1.005-1.025) Urine Protein (NEG-TRACE) MG/DL Urine Glucose (UA) (NEG) MG/DL Urine Ketones (NEG) MG/DL Urine Blood (NEG) Urine Nitrite (NEG) Ur Leukocyte Esterase (NEG) Urine RBC (0) /HPF Urine WBC (0-4) /HPF Ur Squamous Epith Cells /LPF Amorphous Sediment /LPF Urine Bacteria /LPF Urine Mucus /LPF COVID-19 (TEENA) (Negative) COVID-19 Clin Com 11/01/20 11/02/20 11/02/20 Range/Units 23:30 00:22 04:23 WBC (4.8-10.8) X10*3/uL RBC (4.60-5.80) X10*6/uL Hgb (14.0-18.0) g/dl Hct (42-52) % MCV (80-98) fL MCH (27.0-33.0) pg MCHC (31.0-36.0) g/dl RDW (11.0-16.0) % Plt Count (160-400) X10*3/uL MPV (9.4-12.4) fL Immature Gran % (Auto) (0.0-0.4) % Neut % (Auto) (45-73) % Lymph % (Auto) (20-40) % Craig % (Auto) (2-11) % Eos % (Auto) (0-4) % Baso % (Auto) (0-2) % Lymph # (Auto) (1.2-4.9) X10*3/uL Craig # (Auto) (0.1-1.2) X10*3/uL Eos # (Auto) (0.0-0.4) X10*3/uL Baso # (Auto) (0.0-0.2) X10*3/uL Abs Immat Gran (auto) (0.00-0.03) X10*3/uL Absolute Neuts (auto) (2.0-8.3) X10*3/uL Absolute Nucleated RBC (0.0-0.012) X10*3/uL Nucleated RBC % (auto) (0.0-0.2) /100WBC Hold Blue Top Sodium (135-145) mmol/L Potassium (3.3-5.1) mmol/l Chloride (96-108) mmol/L Carbon Dioxide (22-29) mmol/L Anion Gap (12-20) BUN (9-16) mg/dL Creatinine (0.5-1.4) mg/dL Estim Creat Clear Calc Estimated GFR Random Glucose (60-115) mg/dL Calcium (8.4-10.2) mg/dL Total Bilirubin (0.0-1.0) mg/dL AST (5-37) U/L ALT (0-40) U/L Alkaline Phosphatase (39-117) U/L Total Protein (6.5-8.0) g/dL Albumin (3.5-5.0) g/dL Lipase 71 (8-78) U/L Urine Color DARK YELLOW Urine Appearance HAZY Urine pH 7.0 (5.0-8.0) Ur Specific [place] 1.025 (1.005-1.025) Urine Protein 2+ H (NEG-TRACE) MG/DL Urine Glucose (UA) NEG (NEG) MG/DL Urine Ketones NEG (NEG) MG/DL Urine Blood 3+ H (NEG) Urine Nitrite NEG (NEG) Ur Leukocyte Esterase NEG (NEG) Urine RBC 76-150 H (0) /HPF Urine WBC 0 (0-4) /HPF Ur Squamous Epith Cells TRACE /LPF Amorphous Sediment 3+ /LPF Urine Bacteria NONE /LPF Urine Mucus TRACE /LPF COVID-19 (TEENA) Negative (Negative) COVID-19 Clin Com See Note Discharge Plan Discharge Clinical Impression: Choledocholithiasis with acute cholecystitis Patient Disposition: Admitted As Inpatient [facility] Past Medical History Medical History No known health problems Social History Social History Alcohol intake: never Smoking Status: Never smoker Use of substances other than those prescribed or required for medical reasons: No Substance Use Type: Marijuana Advance Directives: No Advance Directives Information Provided: No service: No Current occupational status: employed
[2020-11-02 00:51] LABS: Glucose Urine UA NEG (NEG); Leukocyte Esterase Urine NEG (NEG); Nitrite Urine NEG (NEG); Specific Gravity - Urine 1.025 (1.005-1.025); Urine Blood 3+ (NEG); Urine Ketones NEG (NEG); Urine Protein 2+ MG/DL (NEG-TRACE)
[2020-11-02 00:58] LABS: Appearance Urine HAZY; Color Urine DARK YELLOW
--- NOTE | 2020-11-02 01:13 | US_ITS ---
EXAMINATION: US ABDOMEN LIMITED CLINICAL INFORMATION: Right upper quadrant/epigastric pain. COMPARISON: 09/18/2020 TECHNIQUE: Real-time imaging of the right upper quadrant abdominal viscera. FINDINGS: PANCREAS: Not well seen secondary to bowel gas. LIVER: Normal. The liver is normal in size. The liver contour is normal. Parenchymal echogenicity is normal. No focal hepatic lesion. There is no intrahepatic biliary duct dilatation seen. GALLBLADDER: Stone filled gallbladder. There is gallbladder wall thickening measuring 0.5 cm. No wall edema or pericholecystic fluid seen. COMMON BILE DUCT: Prominent in caliber measuring 0.7 cm in diameter. RIGHT KIDNEY: Upper pole 1.2 cm cyst No hydronephrosis. No renal calculi or solid parenchymal lesions. The kidney measures 11.1 cm in maximum dimension. FREE FLUID: None. US/US abdomen limited IMPRESSION: Cholelithiasis with stone filled gallbladder. There is gallbladder wall thickening present. These findings are concerning for cholecystitis. The appearance is similar to prior.
[2020-11-02 01:44] LABS: Amorphous Sediment Urine 3+ /LPF; Mucus Urine TRACE /LPF; Squamous Epithelial Cell Urine TRACE /LPF; WBC Urine 0 /HPF (0-4)
[2020-11-02 04:54] LABS: COVID-19 Test Negative (Negative)
--- NOTE | 2020-11-02 05:38 | PM.IMHP ---
History of Present Illness Date of Service: 11/02/20 Chief Complaint: Abdominal pain 50 year old man presented with abdominal pain. Beginning in September he had episodes of abd pain. Was hospitalized her for cholecystitis and treated conservatively with antibiotics as he wanted to avoid surgery at that time. Improved and went home. Stated he had another bout of abd pain on that resolved and then yesterday he had an episode that began after lunch and continued for several hours. Has now improved. Pain is in right mid abdomen. Associated with nausea but no vomiting. No fevers/chills/diarrhea. Currently feels well and rates his pain at a 2/10. Review of Systems Review of Systems: Yes all other systems are reviewed and are negative Constitutional: Comments: No fevers/chills Cardiovascular: Comments: No chest pain Respiratory: Comments: No dyspnea or cough Gastrointestinal: Comments: Abd pain noted Musculoskeletal: Musculoskeletal: Reports no additional musculoskeletal complaints [facility] Medical History No known health problems Functional capacity: independent ambulation Social History Alcohol intake: never Smoking Status: Never smoker Use of substances other than those prescribed or required for medical reasons: No Substance Use Type: Marijuana Advance Directives: No Advance Directives Information Provided: No service: No Current occupational status: employed Meds Allergies Allergy/AdvReac Type Severity Reaction Status Date / Time No Known Allergies Allergy Verified 10/05/20 15:27 Home Medications Medication Instructions Recorded Confirmed Type No Known Home Meds 11/02/20 11/02/20 History Physical Exam Vital Signs and Narrative: Vital Signs: Last Vital Signs Temp 97.3 F 11/01/20 23:14 Pulse 76 11/02/20 04:52 Resp 16 11/02/20 04:52 BP 153/97 H 11/02/20 04:52 Pulse Ox 98 11/02/20 04:52 Body Mass Index 25.0 Const: General: cooperative, healthy appearing, comfortable and no acute distress HENMT: Head: Yes normal to inspection Eyes: General: appearance normal, both eyes and all related structures Chest: Chest palpation & inspection: normal inspection of the chest Resp: Other: No insp crackles or exp wheezes Effort & Inspection: normal respiratory effort Cardio: Rate: regular rate Rhythm: regular rhythm Heart sounds: S1 normal heart sound present and S2 normal heart sound present GI: Other: Slightly tender to palpation ruq, no wilks's sign Auscultation: normal bowel sounds Skin: General skin exam: no rashes or lesions noted Psych: Mental Status: mental status grossly normal Results Labs CBC and Chem 7: 11/01/20 23:30 11/01/20 23:30 Labs: Laboratory Results - last 24 hr 11/01/20 11/01/20 11/01/20 23:30 23:30 23:30 MCV 86.2 MCH 29.3 MCHC 34.0 RDW 13.2 Plt Count 255 MPV 9.8 Immature Gran % (Auto) 0.4 Neut % (Auto) 81.6 H Lymph % (Auto) 12.8 L [place] % (Auto) 4.3 Eos % (Auto) 0.5 Baso % (Auto) 0.4 Lymph # (Auto) 1.2 [place] # (Auto) 0.4 Eos # (Auto) 0.1 Baso # (Auto) 0.0 Abs Immat Gran (auto) 0.04 H Absolute Neuts (auto) 7.5 Absolute Nucleated RBC 0.000 Nucleated RBC % (auto) 0.0 Hold Blue Top SEE NOTE Anion Gap 13 Estim Creat Clear Calc 91.9 Estimated GFR > 60 Random Glucose 129 H D Calcium 9.6 D Total Bilirubin 2.9 H AST 419 H ALT 278 H Alkaline Phosphatase 167 H D Total Protein 8.0 D Albumin 4.7 D Lipase Urine Color Urine Appearance Urine pH Ur Specific [place] Urine Protein Urine Glucose (UA) Urine Ketones Urine Blood Urine Nitrite Ur Leukocyte Esterase Urine RBC Urine WBC Ur Squamous Epith Cells Amorphous Sediment Urine Bacteria Urine Mucus COVID-19 (TEENA) COVID-19 Clin Com 11/01/20 11/02/20 11/02/20 23:30 00:22 04:23 MCV MCH MCHC RDW Plt Count MPV Immature Gran % (Auto) Neut % (Auto) Lymph % (Auto) [place] % (Auto) Eos % (Auto) Baso % (Auto) Lymph # (Auto) [place] # (Auto) Eos # (Auto) Baso # (Auto) Abs Immat Gran (auto) Absolute Neuts (auto) Absolute Nucleated RBC Nucleated RBC % (auto) Hold Blue Top Anion Gap Estim Creat Clear Calc Estimated GFR Random Glucose Calcium Total Bilirubin AST ALT Alkaline Phosphatase Total Protein Albumin Lipase 71 Urine Color DARK YELLOW Urine Appearance HAZY Urine pH 7.0 Ur Specific [place] 1.025 Urine Protein 2+ H Urine Glucose (UA) NEG Urine Ketones NEG Urine Blood 3+ H Urine Nitrite NEG Ur Leukocyte Esterase NEG Urine RBC 76-150 H Urine WBC 0 Ur Squamous Epith Cells TRACE Amorphous Sediment 3+ Urine Bacteria NONE Urine Mucus TRACE COVID-19 (TEENA) Negative COVID-19 Clin Com See Note Imaging Radiologist's Impressions: Impressions Abdomen Ultrasound 11/02/20 01:13 IMPRESSION: Cholelithiasis with stone filled gallbladder. There is gallbladder wall thickening present. These findings are concerning for cholecystitis. The appearance is similar to prior. Assessment and Plan (1) Choledocholithiasis with acute cholecystitis: Status: Acute 50 year old man with abd pain in setting of prior cholecystitis managed conservatively with IV antibiotics. Cholecystitis LFTs are all elavated over baseline. Consult placed to GI and surgery. Gi recommended no antibiotics presently and MRCP. Await input. DVT proph He ambulates so is low risk
--- NOTE | 2020-11-02 08:26 | P.CONGS_ITS ---
History of Present Illness Consult details Consult date: 11/02/20 Narrative: 50-year-old male who is well known to me. He was admitted by Dr. Cordero last September 18, 2020 for acute cholecystitis. At that time he did not want to have surgery and proceeded to insert with treatment with IV antibiotics. He proved significantly and was discharged on hospital day 4. He had been doing well since then and had actually seen him in the office earlier this month. He did not have any significant complaints. He was thinking about having his surgery scheduled for November. However, says after having lunch yesterday, he started to have abdominal pain lasting until 11:00 o'clock last night. He says that the pain was on the upper abdomen. He did not have any significant nausea or vomiting. He currently feels much better this morning and says he does not have pain at this time. He had an ultrasound showing gallstones. His LFTs were abnormal so he was admitted. Review of Systems Constitutional: Constitutional: Denies chills and Denies fever(s) Cardiovascular: Cardiovascular: Denies chest pain, Denies dyspnea and Denies dyspnea on exertion Respiratory: Respiratory: Denies cough, Denies dyspnea and Denies dyspnea on exertion Gastrointestinal: Gastrointestinal: Denies hematochezia and Denies change in bowel habits Genitourinary: Genitourinary: Denies hematuria and Denies difficulty urinating Musculoskeletal: Musculoskeletal: Denies back pain and Denies limited range of motion Neurologic: Denies focal weakness and Denies convulsions Psychiatric: Psychiatric: Denies depression and Denies mood swings PMFSH Past Medical History Medical History (Updated 11/02/20 @ 08:31 by Shree Fraga MD) Gallstones No known health problems Functional capacity: independent ambulation Social History Social History Alcohol intake: never Smoking Status: Never smoker Use of substances other than those prescribed or required for medical reasons: No Substance Use Type: Marijuana Advance Directives: No Advance Directives Information Provided: No service: No Current occupational status: employed Meds Allergies Allergy/AdvReac Type Severity Reaction Status Date / Time No Known Allergies Allergy Verified 10/05/20 15:27 Home Medications Medication Instructions Recorded Confirmed Type No Known Home Meds 11/02/20 11/02/20 History Physical Exam Vital Signs: Vital Signs: Last Vital Signs Temp 97.9 F 11/02/20 07:41 Pulse 71 11/02/20 07:41 Resp 16 11/02/20 07:41 BP 141/98 H 11/02/20 07:41 Pulse Ox 97 11/02/20 07:41 Body Mass Index 25.0 Const: Other: Looks well General: comfortable and no acute distress Orientation/consciousness: patient oriented x3 Neck: Neck: Yes no lymphadenopathy Resp: Auscultation: clear to auscultation bilaterally Cardio: Rhythm: regular rhythm GI: Other: No Oliveros's sign on exam Palpation (GI): Soft to palpation and nontender Neuro: General: patient oriented x3 Results Labs Result diagrams: 11/01/20 23:30 11/02/20 07:52 Labs: Abnormal lab results 11/01/20 11/01/20 11/02/20 Range/Units 23:30 23:30 00:22 Neut % (Auto) 81.6 H (45-73) % Lymph % (Auto) 12.8 L (20-40) % Abs Immat Gran (auto) 0.04 H (0.00-0.03) X10*3/uL Random Glucose 129 H D (60-115) mg/dL Total Bilirubin 2.9 H (0.0-1.0) mg/dL AST 419 H (5-37) U/L ALT 278 H (0-40) U/L Alkaline Phosphatase 167 H D (39-117) U/L Urine Protein 2+ H (NEG-TRACE) MG/DL Urine Blood 3+ H (NEG) Urine RBC 76-150 H (0) /HPF Short CBC 11/01/20 Range/Units 23:30 WBC 9.2 (4.8-10.8) X10*3/uL Hgb 14.6 (14.0-18.0) g/dl Hct 43.0 (42-52) % Plt Count 255 (160-400) X10*3/uL BMP 11/01/20 23:30 Sodium 136 Potassium 4.1 D Chloride 101 Carbon Dioxide 26 BUN 14 Creatinine 0.94 Calcium 9.6 D Liver Function 11/01/20 Range/Units 23:30 Total Bilirubin 2.9 H (0.0-1.0) mg/dL AST 419 H (5-37) U/L ALT 278 H (0-40) U/L Alkaline Phosphatase 167 H D (39-117) U/L Albumin 4.7 D (3.5-5.0) g/dL Urine 11/02/20 Range/Units 00:22 Urine Color DARK YELLOW Urine Appearance HAZY Urine pH 7.0 (5.0-8.0) Ur Specific [place] 1.025 (1.005-1.025) Urine Protein 2+ H (NEG-TRACE) MG/DL Urine Glucose (UA) NEG (NEG) MG/DL All other labs normal. Assessment and Plan (1) Gallstones: Status: Acute He had an episode of pain lasting for about 10 hours last night. He says the pain has resolved this morning. His LFTs were abnormal so he is scheduled to have an MRCP to rule out CBD obstruction. I have reviewed his ultrasound. There is some gallbladder wall thickening wit hout any pericholecystic fluid nor obvious edema. This likely represents more changes due to chronic cholecystitis rather than acute cholecystitis. He did not have any leukocytosis. Depending on his MRCP, we can plan on proceeding with laparoscopic cholecystectomy, possible open in view of his recurrent symptoms. This will also depend on his LFTs. I will follow along while he is in the hospital. I have discussed the above with the patient. I have personally reviewed his ultrasound images.
[2020-11-02 08:36] LABS: Alanine Aminotransferase 424 U/L (0-40); Albumin Level 4.8 g/dL (3.5-5.0); Alkaline Phosphatase 201 U/L (39-117); Anion Gap 13 (12-20); Aspartate Amino Transferase 497 U/L (5-37); Bilirubin Direct 1.9 mg/dL (0.0-0.5); Bilirubin Total 3.3 mg/dL (0.0-1.0); Blood Urea Nitrogen 13 mg/dL (9-16); Calcium 9.8 mg/dL (8.4-10.2); Carbon Dioxide 28 mmol/L (22-29); Chloride 102 mmol/L (96-108); Creatinine Clr Calc Pharmacy 87.3; Estimated Glomerular Filt Rate > 60; Glucose Random 108 mg/dL (60-115); Potassium 3.9 mmol/l (3.3-5.1); Sodium 139 mmol/L (135-145)
--- NOTE | 2020-11-02 08:56 | PC.NURSE ---
called to give repot mariana brownl call back
--- NOTE | 2020-11-02 09:17 | CONS_ITS ---
DATE OF SERVICE: 11/02/2020 REFERRING PHYSICIAN: Joy Aguiar REASON FOR CONSULTATION: Gallstones and elevated liver function tests. HISTORY OF PRESENT ILLNESS: The patient is a pleasant 50-year-old man, who presented to the emergency room last night with abdominal pain. He has a history of gallstones and was hospitalized in September for acute cholecystitis that was treated conservatively and improved. He was seen by Dr. Fraga in followup and had outpatient surgery planned for November electively. He developed abdominal pain yesterday in the epigastric area and right upper quadrant while at work after eating lunch. There was associated vomiting of nonbloody material on one episode, but no fevers or chills. He presented to the emergency room where he was evaluated and noted to have elevations of his liver function tests with a total bilirubin of 2.9 and transaminases in the 2 to 400 range. Ultrasound imaging was obtained, which is reviewed. This is interpreted as showing a stone filled gallbladder with gallbladder wall thickening and a prominent common bile duct measuring 7 mm. Currently, the patient has no complaints of pain on examination this morning. PAST MEDICAL HISTORY: 1. Gallstones. 2. Tympanostomy tubes. 3. Adenoidectomy. 4. Inguinal hernia repair, left. 5. Mild elevation of blood pressure, not currently under treatment. CURRENT MEDICATIONS: His current medication list is reviewed in the chart. ALLERGIES: THERE ARE NONE REPORTED. FAMILY HISTORY: This is reviewed with the patient and is negative for GI malignancy. SOCIAL HISTORY: He denies tobacco use. Alcohol use is described as occasional. He works at [employer] in [place] and uses marijuana occasionally. REVIEW OF SYSTEMS: SKIN: No pruritus. HEENT: Negative. CARDIOPULMONARY: No shortness of breath or chest pain. GASTROINTESTINAL: As above. GENITOURINARY: Negative. NEUROPSYCHIATRIC: Negative. PHYSICAL EXAMINATION: GENERAL: Shows a pleasant male, lying comfortably in bed. VITAL SIGNS: Reviewed in the electronic medical record and are stable. SKIN: Anicteric. HEENT: Shows no scleral icterus. NECK: Without lymphadenopathy or thyromegaly. LUNGS: Clear. HEART: Shows a regular rate and rhythm. S1, S2. No murmur. ABDOMEN: Soft without focal masses or tenderness. Bowel sounds are present. No organomegaly is noted. EXTREMITIES: Without edema. LABORATORY DATA: Shows a white blood cell count of 9.2. Chemistries as above. IMPRESSION: Abdominal pain with elevated liver function tests and gallstones. At this time, he appears quite stable. I would recommend further evaluation with MRI imaging of his common bile duct to rule out a common bile duct stone. If this is the case, he will need ERCP. I have discussed ERCP with him including risks and benefits. He understands these and agrees to proceed if necessary. In the interim, I agree with treating him supportively with monitoring of his liver function tests and surgical consultation by Dr. Fraga who has been notified of his admission. Thanks for asking me to see him. I will follow him in the hospital with you. MD KRISSY Hicks/HERMINIO / [phone]
--- NOTE | 2020-11-02 09:34 | PC.NURSE ---
report given to shine peña
[2020-11-02] MEDS: 0.9 % Sodium Chloride Flush 3 ML SYRINGE IVFLUSH ×2 (10:51→14:06)
[2020-11-02] MEDS: 0.9 % Sodium Chloride 1,000 ML 100 ML IVCONT (10:51)
--- NOTE | 2020-11-02 11:27 | MHC.CM.PN ---
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 HCP is [facility] [phone] and a copy is on file. Discussed discharge plan, home no services. [facility] will provide transport. CM will continue to follow for discharge needs.
--- NOTE | 2020-11-02 13:59 | PM.EVENT ---
Event Note Date of Service: 11/03/20 Event Note: Patient seen examined by the hospitalist team this morning Abdominal pain seems improving Physical exam: Constitutional: Not in acute distress Cvs: [id number], [id number] , no murmur res: clear to auscultation ,no rhonchii or wheezing abd: no rebound or guarding ,nt, bs present. ext pulses present , no cyanosis neuro: axo3 , nonfocal. Assessment and plan: Choledocholithiasis? LFTs trending Abdominal pain seems improving Will do MRI abdomen- imaging of his common bile duct to rule out a common bile duct stone. If this is the case, he will need ERCp-mri abd reviewed : Mild extrahepatic bile duct dilatation and small distal common bile duct stone. plan is for ercp in am npo pat midnight GI following. surgery following Since abdominal pain seems resolving, no leukocytosis no fever, also surgery noted to be thought probably findings are due to chronic cholecystitis rather than acute: Will defer antibiotics unless new finding of fever or new symptoms.
--- NOTE | 2020-11-02 16:16 | PM.EVENT ---
Event Note Date of Service: 11/02/20 Event Note: MRCP shows filling defect in the common bile duct suggestive of CBD stone Furthermore, bilirubin was higher today Patient for ERCP in view of this ductal stone Plan for cholecystectomy once the common bile duct is cleared His abdomen remained soft benign with no Oliveros sign He does not appear toxic Discussed plan with him and he understands
[2020-11-03] VITALS (11 sets, daily range): BP systolic 116–165; BP diastolic 72–106; PULSE 73–97; RESP 16–18; TEMP 36.1–37; O2SAT 91–99; BMI 25.0
[2020-11-03 00:15] LABS: INTERNATIONAL NORM RATIO 1.1 (0.9-1.1)
[2020-11-03] MEDS: 0.9 % Sodium Chloride 1,000 ML 100 ML IVCONT (00:29)
[2020-11-03] MEDS: Phytonadione (Vit K1) 10 MG in 0.9 % Sodium Chloride 50 ML 51 MG IV (00:29)
[2020-11-03 07:05] LABS: Prothrombin Time 12.3 SEC (10.8-13.0)
[2020-11-03 07:09] LABS: Alanine Aminotransferase 266 U/L (0-40); Alkaline Phosphatase 162 U/L (39-117); Aspartate Amino Transferase 154 U/L (5-37); Bilirubin Direct 0.5 mg/dL (0.0-0.5); Bilirubin Total 1.1 mg/dL (0.0-1.0); Total Protein 6.9 g/dL (6.5-8.0)
[2020-11-03 07:15] LABS: Alanine Aminotransferase 268 U/L (0-40); Alkaline Phosphatase 161 U/L (39-117); Anion Gap 16 (12-20); Aspartate Amino Transferase 154 U/L (5-37); Bilirubin Direct 0.5 mg/dL (0.0-0.5); Blood Urea Nitrogen 19 mg/dL (9-16); Calcium 8.4 mg/dL (8.4-10.2); Carbon Dioxide 21 mmol/L (22-29); Chloride 105 mmol/L (96-108); Creatinine Clr Calc Pharmacy 91.9; Estimated Glomerular Filt Rate > 60; Glucose Random 91 mg/dL (60-115); Potassium 3.8 mmol/l (3.3-5.1); Sodium 138 mmol/L (135-145); Total Protein 6.9 g/dL (6.5-8.0)
--- NOTE | 2020-11-03 08:22 | P.CONAN_ITS ---
[facility] Past Medical History Medical History Gallstones No known health problems Functional capacity: independent ambulation Social History Social History Alcohol intake: never Smoking Status: Never smoker Use of substances other than those prescribed or required for medical reasons: No Substance Use Type: Marijuana Advance Directives: No Advance Directives Information Provided: No service: No Current occupational status: employed Meds Allergies Allergy/AdvReac Type Severity Reaction Status Date / Time No Known Allergies Allergy Verified 10/05/20 15:27 Home Medications Medication Instructions Recorded Confirmed Type No Known Home Meds 11/02/20 11/02/20 History Exam Exam Date and Time: November 03, 2020821 Height,Weight and Vital Signs: Height 5 ft 8 in Weight 74.843 kg Last Vital Signs Temp 98.1 F 11/03/20 08:00 Pulse 73 11/03/20 08:00 Resp 18 11/03/20 08:00 BP 135/85 11/03/20 08:00 Pulse Ox 96 11/03/20 08:00 Pertinent Lab Results Pertinent Lab Results: Laboratory Tests 11/01/20 11/01/20 11/01/20 23:30 23:30 23:30 WBC 9.2 RBC 4.99 Hgb 14.6 Hct 43.0 MCV 86.2 MCH 29.3 MCHC 34.0 RDW 13.2 Plt Count 255 MPV 9.8 Immature Gran % (Auto) 0.4 Neut % (Auto) 81.6 H Lymph % (Auto) 12.8 L [place] % (Auto) 4.3 Eos % (Auto) 0.5 Baso % (Auto) 0.4 Lymph # (Auto) 1.2 [place] # (Auto) 0.4 Eos # (Auto) 0.1 Baso # (Auto) 0.0 Abs Immat Gran (auto) 0.04 H Absolute Neuts (auto) 7.5 Absolute Nucleated RBC 0.000 Nucleated RBC % (auto) 0.0 PT INR Hold Blue Top SEE NOTE Sodium 136 Potassium 4.1 D Chloride 101 Carbon Dioxide 26 Anion Gap 13 BUN 14 Creatinine 0.94 Estim Creat Clear Calc 91.9 Estimated GFR > 60 Random Glucose 129 H D Calcium 9.6 D Total Bilirubin 2.9 H Direct Bilirubin AST 419 H ALT 278 H Alkaline Phosphatase 167 H D Total Protein 8.0 D Albumin 4.7 D Lipase Urine Color Urine Appearance Urine pH Ur Specific [place] Urine Protein Urine Glucose (UA) Urine Ketones Urine Blood Urine Nitrite Ur Leukocyte Esterase Urine RBC Urine WBC Ur Squamous Epith Cells Amorphous Sediment Urine Bacteria Urine Mucus COVID-19 (TEENA) COVID-19 Clin Com 11/01/20 11/02/20 11/02/20 23:30 00:22 04:23 WBC RBC Hgb Hct MCV MCH MCHC RDW Plt Count MPV Immature Gran % (Auto) Neut % (Auto) Lymph % (Auto) [place] % (Auto) Eos % (Auto) Baso % (Auto) Lymph # (Auto) [place] # (Auto) Eos # (Auto) Baso # (Auto) Abs Immat Gran (auto) Absolute Neuts (auto) Absolute Nucleated RBC Nucleated RBC % (auto) PT INR Hold Blue Top Sodium Potassium Chloride Carbon Dioxide Anion Gap BUN Creatinine Estim Creat Clear Calc Estimated GFR Random Glucose Calcium Total Bilirubin Direct Bilirubin AST ALT Alkaline Phosphatase Total Protein Albumin Lipase 71 Urine Color DARK YELLOW Urine Appearance HAZY Urine pH 7.0 Ur Specific [place] 1.025 Urine Protein 2+ H Urine Glucose (UA) NEG Urine Ketones NEG Urine Blood 3+ H Urine Nitrite NEG Ur Leukocyte Esterase NEG Urine RBC 76-150 H Urine WBC 0 Ur Squamous Epith Cells TRACE Amorphous Sediment 3+ Urine Bacteria NONE Urine Mucus TRACE COVID-19 (TEENA) Negative COVID-19 Clin Com See Note 11/02/20 11/02/20 11/03/20 07:52 23:38 05:23 WBC RBC Hgb Hct MCV MCH MCHC RDW Plt Count MPV Immature Gran % (Auto) Neut % (Auto) Lymph % (Auto) [place] % (Auto) Eos % (Auto) Baso % (Auto) Lymph # (Auto) [place] # (Auto) Eos # (Auto) Baso # (Auto) Abs Immat Gran (auto) Absolute Neuts (auto) Absolute Nucleated RBC Nucleated RBC % (auto) PT 13.0 12.3 INR 1.1 1.0 Hold Blue Top Sodium 139 Potassium 3.9 Chloride 102 Carbon Dioxide 28 Anion Gap 13 BUN 13 Creatinine 0.99 Estim Creat Clear Calc 87.3 Estimated GFR > 60 Random Glucose 108 Calcium 9.8 Total Bilirubin 3.3 H Direct Bilirubin 1.9 H AST 497 H ALT 424 H Alkaline Phosphatase 201 H D Total Protein 8.0 Albumin 4.8 Lipase Urine Color Urine Appearance Urine pH Ur Specific [place] Urine Protein Urine Glucose (UA) Urine Ketones Urine Blood Urine Nitrite Ur Leukocyte Esterase Urine RBC Urine WBC Ur Squamous Epith Cells Amorphous Sediment Urine Bacteria Urine Mucus COVID-19 (TEENA) COVID-19 [employer] Com 11/03/20 11/03/20 05:23 05:23 WBC RBC Hgb Hct MCV MCH MCHC RDW Plt Count MPV Immature Gran % (Auto) Neut % (Auto) Lymph % (Auto) [place] % (Auto) Eos % (Auto) Baso % (Auto) Lymph # (Auto) [place] # (Auto) Eos # (Auto) Baso # (Auto) Abs Immat Gran (auto) Absolute Neuts (auto) Absolute Nucleated RBC Nucleated RBC % (auto) PT INR Hold Blue Top Sodium 138 Potassium 3.8 Chloride 105 Carbon Dioxide 21 L Anion Gap 16 BUN 19 H Creatinine 0.94 Estim Creat Clear Calc 91.9 Estimated GFR > 60 Random Glucose 91 Calcium 8.4 D Total Bilirubin 1.1 H 1.0 Direct Bilirubin 0.5 0.5 AST 154 H 154 H ALT 266 H 268 H Alkaline Phosphatase 162 H 161 H Total Protein 6.9 6.9 Albumin 4.0 4.0 Lipase Urine Color Urine Appearance Urine pH Ur Specific [place] Urine Protein Urine Glucose (UA) Urine Ketones Urine Blood Urine Nitrite Ur Leukocyte Esterase Urine RBC Urine WBC Ur Squamous Epith Cells Amorphous Sediment Urine Bacteria Urine Mucus COVID-19 (TEENA) COVID-19 Clin Com
--- NOTE | 2020-11-03 08:24 | PM.PNGS ---
Subjective Subjective Date of Service: 11/03/20 Interval history: States he feels well Denies significant abdominal pain MRCP yesterday had shown feeling defect in the common bile duct consistent with CBD stone Physical Exam Vital Signs: Vital Signs: Last Vital Signs Temp 98.1 F 11/03/20 08:00 Pulse 73 11/03/20 08:00 Resp 18 11/03/20 08:00 BP 135/85 11/03/20 08:00 Pulse Ox 96 11/03/20 08:00 Body Mass Index 25.0 Chemistry 11/01/20 11/02/20 11/03/20 23:30 07:52 05:23 Sodium 136 139 138 Potassium 4.1 D 3.9 3.8 Carbon Dioxide 26 28 21 L BUN 14 13 19 H Creatinine 0.94 0.99 0.94 Calcium 9.6 D 9.8 8.4 D Hematology 11/01/20 23:30 WBC 9.2 Hgb 14.6 Plt Count 255 Urinalysis 11/02/20 00:22 Urine Color DARK YELLOW Urine Appearance HAZY Urine pH 7.0 Ur Specific [place] y 1.025 Urine Protein 2+ H Urine Glucose (UA) NEG Urine Ketones NEG Urine Blood 3+ H Urine Nitrite NEG Ur Leukocyte Suzy ase NEG Urine RBC 76-150 H Urine WBC 0 Ur Squamous Epith Cells TRACE Const: General: comfortable and no acute distress Resp: Effort & Inspection: normal respiratory effort Cardio: Rhythm: regular rhythm GI: Palpation (GI): Soft to palpation and nontender Progress Note: A&P Assessment and plan (1) Gallstones: Status: Acute (2) Common bile duct (CBD) obstruction: Problem details: LFTs much better this morning MRCP yesterday afternoon had shown CBD filling defect consistent with stone For ERCP today Plan cholecystectomy - possibly prior to discharge home as preferred by patient I had reviewed with him the technique of laparoscopic cholecystectomy with possible conversion to open I have discussed the risks including but not limited to bleeding, infections, injury to the bowel, liver and bile duct , as well as the benefits and alternatives Status: Acute Fall Risk Details Current Medications: Current Medications Generic Name Dose Route Start Last Admin Trade Name Freq PRN Reason Stop Dose Admin Sodium Chloride 1,000 mls @ 100 mls/hr 11/02/20 07:35 11/03/20 00:29 Ns IVCONT 100 mls/hr .Q10H SARAH Administration Sodium Chloride 3 ml 11/02/20 08:00 11/03/20 00:30 0.9 % Sodium Chloride Flush 3 Ml Syringe IVFLUSH Not Given QSHIFT SARAH Time Spent With Patient Time: Total time spent is greater than 50% in coordination of care (as documented) at patient's floor/unit and/or counseling patient: Time with patient: 15 - 24 minutes
[2020-11-03] MEDS: 0.9 % Sodium Chloride Flush 3 ML SYRINGE IVFLUSH ×3 (09:03→21:08)
--- NOTE | 2020-11-03 09:07 | FL_ITS ---
EXAMINATION: XR FLUOROSCOPY WITH IMAGES CLINICAL INFORMATION: CBD stone. COMPARISON: None. TECHNIQUE: Fluoroscopy performed by Dr. Rehan Anna. Fluoroscopy time: 296.1 seconds DAP: 78.77 mGycm2 Images: 8 FINDINGS: On initial images during ERCP no intraluminal filling defects seen. There is inflated balloon seen on subsequent images with no filling defects seen at this time. The CBD and visualized intrahepatic ducts are widely patent. The last images of ERCP the common bile duct is well opacified without any intraluminal filling defect or narrowing. There is opacification of cystic duct with small filling defects within the duct likely small stones. FL/FL guidance in OR IMPRESSION: . Small filling defects in the cystic duct consistent with small stones. No filling defect or narrowing seen within the common bile duct. On the last images of ERCP the common bile duct is well opacified without any intraluminal filling defect or narrowing.
[2020-11-03] MEDS: levoFLOXacin/D5W 500 MG/100 ML PIGGYBACK 100 MG IV (10:10)
--- NOTE | 2020-11-03 11:00 | PM.OP ---
Brief Operative Note Date of Service: 11/03/20 Pre-op diagnosis: CBD stone Post-op diagnosis: same Procedure: ERCP Surgeon: Rehan Anna Anesthesia: MAC Estimated blood loss (mL): 2 Pathology: none sent Condition: stable Disposition: PACU
--- NOTE | 2020-11-03 11:01 | PM.EVENT ---
Event Note Date of Service: 11/03/20 Event Note: ERCP dictated 3mm cbd stone extracted with balloon after 10 mm sphincterotomy good drainage of clear yellow bile. cystic duct patent advance diet lap rashida per Dr Fraga
--- NOTE | 2020-11-03 11:15 | OP_ITS ---
SURGEON: Rehan Anna MD INDICATIONS: Common bile duct stone on MR imaging. PREOPERATIVE DIAGNOSIS: POSTOPERATIVE DIAGNOSIS: PROCEDURE PERFORMED: ERCP with sphincterotomy and stone extraction. ESTIMATED BLOOD LOSS: COMPLICATIONS: ANESTHESIA: ASSISTANTS: SPECIMENS: MEDICATIONS: Monitored anesthesia care. DESCRIPTION OF PROCEDURE: History and physical performed. The risks and benefits of the procedure were explained to the patient. Informed consent was obtained. The patient was placed in the prone position with a wedge under the right shoulder. The Olympus therapeutic duodenoscope was introduced into the esophagus, stomach, and duodenum. Examination was performed. The scope was removed. He tolerated the procedure well, and was taken to recovery area in stable condition. FINDINGS: ENDOSCOPY: Limited examination. The esophagus, stomach, and duodenum were normal. There was a small periampullary diverticulum. The major papilla appeared normal. The common bile duct was cannulated with a guidewire and sphincterotome. Cholangiography showed a 3 mm filling defect.. A 10 mm sphincterotomy was made. A 12 mm balloon extraction catheter was used to sweep the duct multiple times with extraction of a 3 mm stone consistent with the MR findings and several stone fragments. No other stones were seen. There was excellent drainage of clear yellow bile at the termination of the procedure. The intrahepatic ductal system appeared normal. The extrahepatic ductal system appeared slightly dilated. The cystic duct was patent. No pancreatogram was attempted or obtained. IMPRESSION: Common bile duct stone. RECOMMENDATIONS: 1. Follow up as needed. 2. Laparoscopic cholecystectomy to be arranged with Dr. Fraga. MD KRISSY Hicks/HERMINIO / [id number] MTDD
--- NOTE | 2020-11-03 13:22 | P.PNIM_ITS ---
Subjective Subjective Date of Service: 11/03/20 Interval History: Choledocholithiasis Review of Systems Abdominal plain seems improving, denies any nausea vomiting or fever or chills . Physical Exam Vital Signs: Vital Signs: Last Vital Signs Temp 97.6 F 11/03/20 12:39 Pulse 76 11/03/20 12:39 Resp 18 11/03/20 12:39 BP 152/90 H 11/03/20 12:39 Pulse Ox 97 11/03/20 12:39 Body Mass Index 25.0 Physical exam: Constitutional: Not in acute distress. Cvs: rrr, [id number] , no murmur res: Fair air entry: No rales or wheezing abd: no rebound or guarding ,mild abd discomfort , bs present. ext pulses present , no cyanosis neuro: axo3 , nonfocal. Objective Data Current Medications Generic Name Dose Route Start Last Admin Trade Name Freq PRN Reason Stop Dose Admin Acetaminophen 650 mg 11/03/20 10:39 Acetaminophen 325 Mg Tablet PO ONCE PRN Pain, Mild (Pain Scale 1-3) Fentanyl 25 mcg 11/03/20 10:39 Fentanyl Citrate/Pf 100 Mcg/2 Ml Vial IVPUSH Q5M PRN Pain, Moderate (Pain Scale 4-6 Cefotetan Disodium 2 gm in 50 mls @ 100 mls/hr 11/07/20 10:27 Cefotan IV 11/07/20 10:56 PREOP ONE Ondansetron HCl 4 mg 11/03/20 10:39 Ondansetron Hcl 4 Mg/2 Ml Vial IVPUSH ONCE PRN Nausea and Vomiting Sodium Chloride 3 ml 11/02/20 08:00 11/03/20 09:03 0.9 % Sodium Chloride Flush 3 Ml Syringe IVFLUSH 3 ml QSHIFT [facility] Administration Labs CBC & Chem 7: 11/01/20 23:30 11/03/20 05:23 Assessment and Plan (1) Common bile duct (CBD) obstruction: Status: Acute (2) Choledocholithiasis with acute cholecystitis: Status: Acute Assessment and Plan: 50 year old man with abd pain in setting of prior cholecystitis managed conservatively with IV antibiotics. 1.Choledocholithiasis/Cholecystitis LFTs seems improving. Consult placed to GI and surgery-going for ercp suregry -plan is cholecystectomy prior to discharge. DVT proph He ambulates so is low risk
--- NOTE | 2020-11-03 14:14 | PM.EVENT ---
Event Note Date of Service: 11/03/20 Event Note: Had successful ERCP earlier Stone removed, sphincterotomy done Patient feels well Actually eating lunch with regular food Abdomen soft nontender He is considering staying to have cholecystectomy prior to discharge I explained to him that I will not be able to do it until Saturday If he decides to stay, will do cholecystectomy on Saturday Otherwise, I can do it as an outpatient next week Continue to follow LFTs
[2020-11-04 07:50] LABS: Hematocrit 41.9 % (42-52); Hemoglobin 13.9 g/dl (14.0-18.0); Mean Corpuscular HGB Conc 33.2 g/dl (31.0-36.0); Mean Corpuscular Hemoglobin 29.4 pg (27.0-33.0); Mean Corpuscular Volume 88.8 fL (80-98); Mean Platelet Volume 10.5 fL (9.4-12.4); Platelet Count 263 X10*3/uL (160-400); Red Blood Count 4.72 X10*6/uL (4.60-5.80); Red Cell Distribution Width 13.3 % (11.0-16.0); White Blood Count 10.8 X10*3/uL (4.8-10.8)
[2020-11-04] MEDS: 0.9 % Sodium Chloride Flush 3 ML SYRINGE IVFLUSH ×3 (07:59→21:11)
[2020-11-04 08:11] LABS: Anion Gap 14 (12-20); Blood Urea Nitrogen 25 mg/dL (9-16); Calcium 8.8 mg/dL (8.4-10.2); Carbon Dioxide 23 mmol/L (22-29); Chloride 105 mmol/L (96-108); Creatinine Clr Calc Pharmacy 86.4; Estimated Glomerular Filt Rate > 60; Glucose Random 114 mg/dL (60-115); Potassium 3.9 mmol/l (3.3-5.1); Sodium 138 mmol/L (135-145)
--- NOTE | 2020-11-04 08:14 | P.PNIM_ITS ---
Subjective Subjective Date of Service: 11/04/20 Interval History: elevated lft , ?choledocholithasis Physical Exam Vital Signs: Vital Signs: Last Vital Signs Temp 97.8 F 11/03/20 19:59 Pulse 97 11/03/20 19:59 Resp 18 11/03/20 19:59 BP 123/83 11/03/20 19:59 Pulse Ox 96 11/03/20 19:59 Body Mass Index 25.0 Physical exam: Constitutional: Not in acute distress. Cvs: [id number], [id number] , no murmur res: Fair air entry: No rales or wheezing abd: no rebound or guarding ,mild abd discomfort , bs present. ext pulses present , no cyanosis neuro: axo3 , nonfocal. Objective Data Current Medications Generic Name Dose Route Start Last Admin Trade Name Freq PRN Reason Stop Dose Admin Acetaminophen 650 mg 11/03/20 10:39 Acetaminophen 325 Mg Tablet PO ONCE PRN Pain, Mild (Pain Scale 1-3) Fentanyl 25 mcg 11/03/20 10:39 Fentanyl Citrate/Pf 100 Mcg/2 Ml Vial IVPUSH Q5M PRN Pain, Moderate (Pain Scale 4-6 Cefotetan Disodium 2 gm in 50 mls @ 100 mls/hr 11/07/20 10:27 Cefotan IV 11/07/20 10:56 PREOP ONE Ondansetron HCl 4 mg 11/03/20 10:39 Ondansetron Hcl 4 Mg/2 Ml Vial IVPUSH ONCE PRN Nausea and Vomiting Sodium Chloride 3 ml 11/02/20 08:00 11/04/20 07:59 0.9 % Sodium Chloride Flush 3 Ml Syringe IVFLUSH 3 ml QSHIFT [facility] Administration Labs CBC & Chem 7: 11/04/20 05:59 11/04/20 05:59 Assessment and Plan (1) Common bile duct (CBD) obstruction: Status: Acute (2) Gallstones: Status: Acute (3) Choledocholithiasis with acute cholecystitis: Status: Acute Assessment and Plan: 50 year old man with abd pain in setting of prior cholecystitis managed conservatively with IV antibiotics. 1.Choledocholithiasis/Cholecystitis LFTs seems improving. Consult placed to GI and surgery-ercp: 3mm cbd stone extracted with balloon after 10 mm sphincterotomy good drainage of clear yellow bile. cystic duct patent suregry -plan is cholecystectomy prior to discharge probable on saturday. DVT proph He ambulates so is low risk
--- NOTE | 2020-11-04 10:18 | PM.PNGS ---
Subjective Subjective Date of Service: 11/04/20 Interval history: No complaints, reports no abdominal pain. Does not want to be discharged prior to cholecystectomy, which has been scheduled with Dr. Fraga on 11/07/2020 Physical Exam Vital Signs: Vital Signs: Last Vital Signs Temp 97.8 F 11/03/20 19:59 Pulse 97 11/03/20 19:59 Resp 18 11/03/20 19:59 BP 123/83 11/03/20 19:59 Pulse Ox 96 11/03/20 19:59 Body Mass Index 25.0 Const: General: healthy appearing, no acute distress and alert GI: Other: Nondistended Progress Note: A&P Assessment and plan (1) Gallstones: Status: Acute Assessment and Plan: ERCP with sphincterotomy and extraction of common duct stones was performed yesterday by Dr. Anna. He tolerated this well and is pain free. He plans to stay in the hospital until cholecystectomy can be performed by Dr. Fraga on 11/07/2020. Continue solid diet, NPO for surgery 11/07/2020. Fall Risk Details Current Medications: Current Medications Generic Name Dose Route Start Last Admin Trade Name Freq PRN Reason Stop Dose Admin Acetaminophen 650 mg 11/03/20 10:39 Acetaminophen 325 Mg Tablet PO ONCE PRN Pain, Mild (Pain Scale 1-3) Fentanyl 25 mcg 11/03/20 10:39 Fentanyl Citrate/Pf 100 Mcg/2 Ml Vial IVPUSH Q5M PRN Pain, Moderate (Pain Scale 4-6 Cefotetan Disodium 2 gm in 50 mls @ 100 mls/hr 11/07/20 10:27 Cefotan IV 11/07/20 10:56 PREOP ONE Ondansetron HCl 4 mg 11/03/20 10:39 Ondansetron Hcl 4 Mg/2 Ml Vial IVPUSH ONCE PRN Nausea and Vomiting Sodium Chloride 3 ml 11/02/20 08:00 11/04/20 07:59 0.9 % Sodium Chloride Flush 3 Ml Syringe IVFLUSH 3 ml QSHIFT SARAH Administration Time Spent With Patient Time: Total time spent is greater than 50% in coordination of care (as documented) at patient's floor/unit and/or counseling patient: Time with patient: less than 15 minutes
[2020-11-04 11:20] VITALS: O2SAT 96
[2020-11-04 11:35] VITALS: BP 134/96; PULSE 80; RESP 18; TEMP 36.4; O2SAT 97
[2020-11-04 12:52] LABS: Alanine Aminotransferase 182 U/L (0-40); Albumin Level 4.2 g/dL (3.5-5.0); Alkaline Phosphatase 148 U/L (39-117); Aspartate Amino Transferase 53 U/L (5-37); Bilirubin Direct 0.3 mg/dL (0.0-0.5); Bilirubin Total 0.5 mg/dL (0.0-1.0); Total Protein 7.2 g/dL (6.5-8.0)
[2020-11-04 15:49] VITALS: BP 131/78; PULSE 84; RESP 18; TEMP 36.9; O2SAT 97
[2020-11-04 19:34] VITALS: BP 147/95; PULSE 85; RESP 18; O2SAT 100
[2020-11-05] VITALS (8 sets, daily range): BP systolic 112–137; BP diastolic 78–99; PULSE 80–114; RESP 16–20; TEMP 36.1–37.1; O2SAT 95–100
--- NOTE | 2020-11-05 08:41 | HO.POSTANES ---
Post Anesthesia Evaluation Post Anesthesia Evaluation Vital Signs: Vital Signs Temp Pulse Resp BP Pulse Ox 11/05/20 07:18 97.8 F 80 18 128/90 H 97 11/05/20 04:25 98.7 F 98 16 137/99 H 98 11/05/20 00:25 98.5 F 82 16 112/85 95 11/05/20 00:20 98.5 F 82 16 112/85 95 Anesthesia: General Endotracheal-GETA Mental Status: Awake Pain Control: Satisfactory Nausea/Vomiting: None Hydration: Adequate Anesthesia-Related Issues: No Anes. Related Issues
[2020-11-05] MEDS: 0.9 % Sodium Chloride Flush 3 ML SYRINGE IVFLUSH ×2 (10:25→17:00)
--- NOTE | 2020-11-05 10:41 | MHC.CM.PN ---
NURSE FLY TIER NOTE ELECTRONIC MEDICAL RECORD REVIEWED PER DOCUMENTATION ;(ERCP with sphincterotomy and extraction of common duct stones was performed yesterday by Dr. Anna. He plans to stay in the hospital until cholecystectomy can be performed by Dr. Sebastian on 11/07/2020. Continue solid diet, NPO for surgery 11/07/2020.)ALONG WITH CASE DISCUSSED WITH STAFF NURSE , MET WITH PATIENT WHO TOLD ME HE WAS HAVING SURGERY WITH DR SEBASTIAN ON 11/07/[address] SEBASTIAN FOR CHOLECYSTECTOMY PLAN CONTINUE TO MONITOR LABS , PAIN MANAGEMENT DISCHARGE PLAN ANTICIPATE HOME WITH NO SERVICES TRANSPORTATION HIS [facility] SURGICAL FOLLOW UP PER DISCHARGE INSTRUCTIONS PCP PATIENT TO CALL FOR POST HOSPITAL DISCHARGE FOLLOW UP
--- NOTE | 2020-11-05 13:17 | HO.PM.IMPN ---
Subjective Subjective Date of Service: 11/05/20 Interval History: elevated lft , ?choledocholithasis Review of Systems Says abdominal pain improved, denies any chest pain or shortness of breath or even fever or chills Physical Exam Vital Signs: Vital Signs: Last Vital Signs Temp 98.3 F 11/05/20 11:15 Pulse 86 11/05/20 11:15 Resp 18 11/05/20 11:15 BP 123/88 11/05/20 11:15 Pulse Ox 98 11/05/20 11:15 Body Mass Index 25.0 Physical exam: Cvs: rrr, [id number] , no murmur res: clear to auscultation ,no rhonchii or wheezing abd: no rebound or guarding ,nt, bs present. ext pulses present , no cyanosis neuro: axo3 , nonfocal. Objective Data Current Medications Generic Name Dose Route Start Last Admin Trade Name Freq PRN Reason Stop Dose Admin Acetaminophen 650 mg 11/03/20 10:39 Acetaminophen 325 Mg Tablet PO ONCE PRN Pain, Mild (Pain Scale 1-3) Fentanyl 25 mcg 11/03/20 10:39 Fentanyl Citrate/Pf 100 Mcg/2 Ml Vial IVPUSH Q5M PRN Pain, Moderate (Pain Scale 4-6 Cefotetan Disodium 2 gm in 50 mls @ 100 mls/hr 11/07/20 10:27 Cefotan IV 11/07/20 10:56 PREOP ONE Ondansetron HCl 4 mg 11/03/20 10:39 Ondansetron Hcl 4 Mg/2 Ml Vial IVPUSH ONCE PRN Nausea and Vomiting Sodium Chloride 3 ml 11/02/20 08:00 11/05/20 10:25 0.9 % Sodium Chloride Flush 3 Ml Syringe IVFLUSH 3 ml QSHIFT SARAH Administration Labs CBC & Chem 7: 11/04/20 05:59 11/04/20 05:59 Assessment and Plan (1) Common bile duct (CBD) obstruction: Status: Acute (2) Choledocholithiasis with acute cholecystitis: Status: Acute Assessment and Plan: 50 year old man with abd pain in setting of prior cholecystitis managed conservatively with IV antibiotics. 1.Choledocholithiasis/Cholecystitis LFTs seems improving. Consult placed to GI and surgery-ercp: 3mm cbd stone extracted with balloon after 10 mm sphincterotomy good drainage of clear yellow bile. cystic duct patent suregry -plan is cholecystectomy prior to discharge. DVT proph He ambulates so is low risk (3) Gallstones: Status: Acute
[2020-11-06] MEDS: 0.9 % Sodium Chloride Flush 3 ML SYRINGE IVFLUSH ×3 (00:18→16:07)
[2020-11-06 06:54] VITALS: BP 107/78; PULSE 89; RESP 18; TEMP 36.5; O2SAT 99
[2020-11-06 07:39] LABS: Alanine Aminotransferase 90 U/L (0-40); Albumin Level 3.9 g/dL (3.5-5.0); Alkaline Phosphatase 104 U/L (39-117); Anion Gap 13 (12-20); Aspartate Amino Transferase 24 U/L (5-37); Bilirubin Direct 0.2 mg/dL (0.0-0.5); Bilirubin Total 0.4 mg/dL (0.0-1.0); Blood Urea Nitrogen 33 mg/dL (9-16); Calcium 8.5 mg/dL (8.4-10.2); Carbon Dioxide 24 mmol/L (22-29); Chloride 106 mmol/L (96-108); Creatinine Clr Calc Pharmacy 98.2; Estimated Glomerular Filt Rate > 60; Glucose Random 101 mg/dL (60-115); Sodium 139 mmol/L (135-145); Total Protein 6.6 g/dL (6.5-8.0)
--- NOTE | 2020-11-06 10:06 | HO.PM.IMPN ---
Subjective Subjective Date of Service: 11/06/20 Interval History: elevated lft , ?choledocholithasis Review of Systems Denies any abdominal pain or shortness of breath or chest pain fever or chills or nausea vomiting. Physical Exam Vital Signs: Vital Signs: Last Vital Signs Temp 97.7 F 11/06/20 06:54 Pulse 89 11/06/20 06:54 Resp 18 11/06/20 06:54 BP 107/78 11/06/20 06:54 Pulse Ox 99 11/06/20 06:54 Body Mass Index 25.0 Physical exam: Constitutional: Not in acute distress Cvs: [id number], [id number] , no murmur res: clear to auscultation ,no rhonchii or wheezing abd: no rebound or guarding ,nt, bs present. ext pulses present , no cyanosis neuro: axo3 , nonfocal. Objective Data Current Medications Generic Name Dose Route Start Last Admin Trade Name Freq PRN Reason Stop Dose Admin Acetaminophen 650 mg 11/03/20 10:39 Acetaminophen 325 Mg Tablet PO ONCE PRN Pain, Mild (Pain Scale 1-3) Fentanyl 25 mcg 11/03/20 10:39 Fentanyl Citrate/Pf 100 Mcg/2 Ml Vial IVPUSH Q5M PRN Pain, Moderate (Pain Scale 4-6 Cefotetan Disodium 2 gm in 50 mls @ 100 mls/hr 11/07/20 10:27 Cefotan IV 11/07/20 10:56 PREOP ONE Ondansetron HCl 4 mg 11/03/20 10:39 Ondansetron Hcl 4 Mg/2 Ml Vial IVPUSH ONCE PRN Nausea and Vomiting Sodium Chloride 3 ml 11/02/20 08:00 11/06/20 08:10 0.9 % Sodium Chloride Flush 3 Ml Syringe IVFLUSH 3 ml QSHIFT SARAH Administration Labs CBC & Chem 7: 11/04/20 05:59 11/06/20 06:46 Assessment and Plan (1) Common bile duct (CBD) obstruction: Status: Acute (2) Gallstones: Status: Acute (3) Choledocholithiasis with acute cholecystitis: Status: Acute Assessment and Plan: 50 year old man with abd pain in setting of prior cholecystitis managed conservatively with IV antibiotics. 1.Choledocholithiasis/Cholecystitis LFTs seems improving. Consult placed to GI and surgery-ercp: 3mm cbd stone extracted with balloon after 10 mm sphincterotomy good drainage of clear yellow bile. cystic duct patent suregry -plan is cholecystectomy prior to discharge. DVT proph He ambulates so is low risk
[2020-11-06 11:29] VITALS: BP 101/82; PULSE 95; RESP 18; TEMP 36.3; O2SAT 100
[2020-11-06 15:27] VITALS: BP 114/82; PULSE 101; RESP 18; TEMP 36.1; O2SAT 100
--- NOTE | 2020-11-06 16:12 | PC.NURSE ---
P-patient refuses sequentials stating he ambulates a lot I-dr. Tubbs notified E-encouraged activity
[2020-11-06 19:56] VITALS: BP 152/92; PULSE 106; RESP 18; TEMP 36.4; O2SAT 100
[2020-11-06 23:44] VITALS: BP 131/94; PULSE 111; RESP 20; TEMP 36.5; O2SAT 98
[2020-11-07] VITALS (16 sets, daily range): BP systolic 102–139; BP diastolic 64–90; PULSE 77–98; RESP 16–20; TEMP 36.2–36.9; O2SAT 96–100
[2020-11-07] MEDS: 0.9 % Sodium Chloride Flush 3 ML SYRINGE IVFLUSH ×3 (00:41→19:00)
--- NOTE | 2020-11-07 08:12 | P.PNGS_ITS ---
Subjective Subjective Date of Service: 11/07/20 Interval history: he had decided to stay over the weekend to have cholecystectomy No events reported Denies any abdominal pain Physical Exam Vital Signs: Vital Signs: Last Vital Signs Temp 98.4 F 11/07/20 07:04 Pulse 93 11/07/20 07:04 Resp 18 11/07/20 07:04 BP 112/70 11/07/20 07:04 Pulse Ox 98 11/07/20 07:04 Body Mass Index 25.0 Chemistry 11/06/20 06:46 Sodium 139 Potassium 4.0 Carbon Dioxide 24 BUN 33 H Creatinine 0.88 Calcium 8.5 Const: General: comfortable and no acute distress Resp: Effort & Inspection: normal respiratory effort Cardio: Rhythm: regular rhythm GI: Palpation (GI): Soft to palpation and nontender Progress Note: A&P Assessment and plan (1) Common bile duct (CBD) obstruction: Status: Acute Assessment and Plan: LFTs have no normalized He wants to proceed with cholecystectomy prior to discharge Reviewed with him the technique of laparoscopic cholecystectomy, possible open Discussed the risks including but not limited to bleeding, infections, bowel injury, injury to the urinary tract, injury to the bile duct, inherent anesthesia risks, retained stones, bile leak, as the benefits and alternatives He says he understands Fall Risk Details Current Medications: Current Medications Generic Name Dose Route Start Last Admin Trade Name Freq PRN Reason Stop Dose Admin Acetaminophen 650 mg 11/03/20 10:39 Acetaminophen 325 Mg Tablet PO ONCE PRN Pain, Mild (Pain Scale 1-3) Cefotetan Disodium 2 gm in 50 mls @ 100 mls/hr 11/07/20 10:27 Cefotan IV 11/07/20 10:56 PREOP ONE Ondansetron HCl 4 mg 11/03/20 10:39 Ondansetron Hcl 4 Mg/2 Ml Vial IVPUSH ONCE PRN Nausea and Vomiting Sodium Chloride 3 ml 11/02/20 08:00 11/07/20 00:41 0.9 % Sodium Chloride Flush 3 Ml Syringe IVFLUSH 3 ml QSHIFT [facility]ENDING [facility] TO [facility] Administration Time Spent With Patient Time: Total time spent is greater than 50% in coordination of care (as documented) at patient's floor/unit and/or counseling patient: Time with patient: 15 - 24 minutes
--- NOTE | 2020-11-07 10:50 | HO.ANESPROP2 ---
Documented by User: Telma Isabel 11/07/20 10:53 HPI - Anesthesia Eval Consult details Narrative: 50 yo male patient here for laparoscopic cholecystectomy. [facility]LY [facility] Past Medical History Medical History (Updated 11/07/20 @ 10:53 by Telma Isabel) Common bile duct (CBD) obstruction Gallstones No known health problems Functional capacity: independent ambulation Social History Social History Alcohol intake: never Smoking Status: Never smoker Second Hand Smoke Exposure: No Use of substances other than those prescribed or required for medical reasons: Yes Substance Use Type: Marijuana Advance Directives: No Advance Directives Information Provided: No Advance Directives on File: No service: No Current occupational status: employed Meds Allergies Allergy/AdvReac Type Severity Reaction Status Date / Time No Known Allergies Allergy Verified 10/05/20 15:27 Home Medications Medication Instructions Recorded Confirmed Type No Known Home Meds 11/02/20 11/02/20 History Exam Exam Date and Time: November 07, 2020 1050 Height,Weight and Vital Signs: Height 5 ft 8 in Weight 74.843 kg Last Vital Signs Temp 98.4 F 11/07/20 07:04 Pulse 93 11/07/20 07:04 Resp 18 11/07/20 07:04 BP 112/70 11/07/20 07:04 Pulse Ox 98 11/07/20 07:04 Pertinent Lab Results Pertinent Lab Results: Laboratory Tests 11/01/20 11/01/20 11/01/20 23:30 23:30 23:30 WBC 9.2 RBC 4.99 Hgb 14.6 Hct 43.0 MCV 86.2 MCH 29.3 MCHC 34.0 RDW 13.2 Plt Count 255 MPV 9.8 Immature Gran % (Auto) 0.4 Neut % (Auto) 81.6 H Lymph % (Auto) 12.8 L Orange % (Auto) 4.3 Eos % (Auto) 0.5 Baso % (Auto) 0.4 Lymph # (Auto) 1.2 Orange # (Auto) 0.4 Eos # (Auto) 0.1 Baso # (Auto) 0.0 Abs Immat Gran (auto) 0.04 H Absolute Neuts (auto) 7.5 Absolute Nucleated RBC 0.000 Nucleated RBC % (auto) 0.0 PT INR Hold Blue Top SEE NOTE Sodium 136 Potassium 4.1 D Chloride 101 Carbon Dioxide 26 Anion Gap 13 BUN 14 Creatinine 0.94 Estim Creat Clear Calc 91.9 Estimated GFR > 60 Random Glucose 129 H D Calcium 9.6 D Total Bilirubin 2.9 H Direct Bilirubin AST 419 H ALT 278 H Alkaline Phosphatase 167 H D Total Protein 8.0 D Albumin 4.7 D Lipase Urine Color Urine Appearance Urine pH Ur Specific [place] Urine Protein Urine Glucose (UA) Urine Ketones Urine Blood Urine Nitrite Ur Leukocyte Esterase Urine RBC Urine WBC Ur Squamous Epith Cells Amorphous Sediment Urine Bacteria Urine Mucus COVID-19 (TEENA) COVID-19 Clin Com Blood Type Antibody Screen 11/01/20 11/02/20 11/02/20 23:30 00:22 04:23 WBC RBC Hgb Hct MCV MCH MCHC RDW Plt Count MPV Immature Gran % (Auto) Neut % (Auto) Lymph % (Auto) Orange % (Auto) Eos % (Auto) Baso % (Auto) Lymph # (Auto) Orange # (Auto) Eos # (Auto) Baso # (Auto) Abs Immat Gran (auto) Absolute Neuts (auto) Absolute Nucleated RBC Nucleated RBC % (auto) PT INR Hold Blue Top Sodium Potassium Chloride Carbon Dioxide Anion Gap BUN Creatinine Estim Creat Clear Calc Estimated GFR Random Glucose Calcium Total Bilirubin Direct Bilirubin AST ALT Alkaline Phosphatase Total Protein Albumin Lipase 71 Urine Color DARK YELLOW Urine Appearance HAZY Urine pH 7.0 Ur Specific [place] 1.025 Urine Protein 2+ H Urine Glucose (UA) NEG Urine Ketones NEG Urine Blood 3+ H Urine Nitrite NEG Ur Leukocyte Esterase NEG Urine RBC 76-150 H Urine WBC 0 Ur Squamous Epith Cells TRACE Amorphous Sediment 3+ Urine Bacteria NONE Urine Mucus TRACE COVID-19 (TEENA) Negative COVID-19 Clin Com See Note Blood Type Antibody Screen 11/02/20 11/02/20 11/03/20 07:52 23:38 05:23 WBC RBC Hgb Hct MCV MCH MCHC RDW Plt Count MPV Immature Gran % (Auto) Neut % (Auto) Lymph % (Auto) Orange % (Auto) Eos % (Auto) Baso % (Auto) Lymph # (Auto) Orange # (Auto) Eos # (Auto) Baso # (Auto) Abs Immat Gran (auto) Absolute Neuts (auto) Absolute Nucleated RBC Nucleated RBC % (auto) PT 13.0 12.3 INR 1.1 1.0 Hold Blue Top Sodium 139 Potassium 3.9 Chloride 102 Carbon Dioxide 28 Anion Gap 13 BUN 13 Creatinine 0.99 Estim Creat Clear Calc 87.3 Estimated GFR > 60 Random Glucose 108 Calcium 9.8 Total Bilirubin 3.3 H Direct Bilirubin 1.9 H AST 497 H ALT 424 H Alkaline Phosphatase 201 H D Total Protein 8.0 Albumin 4.8 Lipase Urine Color Urine Appearance Urine pH Ur Specific [place] Urine Protein Urine Glucose (UA) Urine Ketones Urine Blood Urine Nitrite Ur Leukocyte Esterase Urine RBC Urine WBC Ur Squamous Epith Cells Amorphous Sediment Urine Bacteria Urine Mucus COVID-19 (TEENA) COVID-19 [facility]astic Com Blood Type Antibody Screen 11/03/20 11/03/20 11/04/20 05:23 05:23 05:59 WBC 10.8 RBC 4.72 Hgb 13.9 L Hct 41.9 L MCV 88.8 MCH 29.4 MCHC 33.2 RDW 13.3 Plt Count 263 MPV 10.5 Immature Gran % (Auto) Neut % (Auto) Lymph % (Auto) Orange % (Auto) Eos % (Auto) Baso % (Auto) Lymph # (Auto) Orange # (Auto) Eos # (Auto) Baso # (Auto) Abs Immat Gran (auto) Absolute Neuts (auto) Absolute Nucleated RBC 0.000 Nucleated RBC % (auto) 0.0 PT INR Hold Blue Top Sodium 138 Potassium 3.8 Chloride 105 Carbon Dioxide 21 L Anion Gap 16 BUN 19 H Creatinine 0.94 Estim Creat Clear Calc 91.9 Estimated GFR > 60 Random Glucose 91 Calcium 8.4 D Total Bilirubin 1.1 H 1.0 Direct Bilirubin 0.5 0.5 AST 154 H 154 H ALT 266 H 268 H Alkaline Phosphatase 162 H 161 H Total Protein 6.9 6.9 Albumin 4.0 4.0 Lipase Urine Color Urine Appearance Urine pH Ur Specific [place] Urine Protein Urine Glucose (UA) Urine Ketones Urine Blood Urine Nitrite Ur Leukocyte Esterase Urine RBC Urine WBC Ur Squamous Epith Cells Amorphous Sediment Urine Bacteria Urine Mucus COVID-19 (TEENA) COVID-19 Runtastic Com Blood Type Antibody Screen 11/04/20 11/06/20 11/07/20 05:59 06:46 09:15 WBC RBC Hgb Hct MCV MCH MCHC RDW Plt Count MPV Immature Gran % (Auto) Neut % (Auto) Lymph % (Auto) Orange % (Auto) Eos % (Auto) Baso % (Auto) Lymph # (Auto) Orange # (Auto) Eos # (Auto) Baso # (Auto) Abs Immat Gran (auto) Absolute Neuts (auto) Absolute Nucleated RBC Nucleated RBC % (auto) PT INR Hold Blue Top Sodium 138 139 Potassium 3.9 4.0 Chloride 105 106 Carbon Dioxide 23 24 Anion Gap 14 13 BUN 25 H 33 H Creatinine 1.00 0.88 Estim Creat Clear Calc 86.4 98.2 Estimated GFR > 60 > 60 Random Glucose 114 101 Calcium 8.8 8.5 Total Bilirubin 0.5 0.4 Direct Bilirubin 0.3 0.2 AST 53 H 24 D ALT 182 H 90 H Alkaline Phosphatase 148 H 104 D Total Protein 7.2 6.6 Albumin 4.2 3.9 Lipase Urine Color Urine Appearance Urine pH Ur Specific [place] Urine Protein Urine Glucose (UA) Urine Ketones Urine Blood Urine Nitrite Ur Leukocyte Esterase Urine RBC Urine WBC Ur Squamous Epith Cells Amorphous Sediment Urine Bacteria Urine Mucus COVID-19 (TEENA) COVID-19 Clin [facility] Blood Type O Positive Antibody Screen NEGATIVE Documented by User: Suleiman Saucedo MD 11/07/20 13:27 [facility] Past Medical History Medical History (Updated 11/07/20 @ 10:53 by Telma Isabel) Common bile duct (CBD) obstruction Gallstones No known health problems Social History Social History Alcohol intake: never Smoking Status: Never smoker Second Hand Smoke Exposure: No Use of substances other than those prescribed or required for medical reasons: Yes Substance Use Type: Marijuana Advance Directives: No Advance Directives Information Provided: No Advance Directives on File: No service: No Current occupational status: employed Meds Allergies Allergy/AdvReac Type Severity Reaction Status Date / Time No Known Allergies Allergy Verified 10/05/20 15:27 Home Medications Medication Instructions Recorded Confirmed Type No Known Home Meds 11/02/20 11/02/20 History Exam Airway Mallampati Class: III TM Dist: >3cm Neck ROM: Full Denture: Upper and Lower Loose/Missing/Broken Teeth: No Heart: RRR Lungs: NL Other: AO Assessment and Plan Assessment Anesthesia Assessment: Anesthesia Plan Discussed and Chart Reviewed Final Anesthetic Review NPO: Yes ASA Class: II Final Preanesthetic Review: No Changes in Pt Med Stat, Meds/Allgs Chart Reviewed, Consent Obtained/Reviewed and Anes Risks/Benef Reviewed Patient Risk: Low Procedure Risk: Intermediate Anesthetic Plan Anesthetic Plan: GA Disposition: Standard PACU
[2020-11-07] MEDS: Lactated Ringers 1,000 ML 50 ML IVCONT (11:50)
--- NOTE | 2020-11-07 13:23 | MHC.SHP ---
Pre-Procedural Eval Section B Chief Complaint: Abdominal Pain Allergies: Allergies Allergy/AdvReac Type Severity Reaction Status Date / Time No Known Allergies Allergy Verified 10/05/20 15:27 Plan I have reviewed the history and physical and performed a pertinent physical examination on my patient. No changes have occurred unless specified.
--- NOTE | 2020-11-07 15:16 | P.BOP_ITS ---
Brief Operative Note Date of Service: 11/07/20 Pre-op diagnosis: chronic cholecystitis, CBD stone Post-op diagnosis: same Procedure: laparoscopic cholecystectomy Implants: drains- REGGIE drain Surgeon: CONOR SEBASTIAN MD Anesthesia: REBECCA [employer] Director: Constance Regalado Estimated blood loss (mL): 20 Pathology: other (gallbladder) Condition: stable Disposition: PACU
--- NOTE | 2020-11-07 15:30 | P.PNIM_ITS ---
Subjective Subjective Date of Service: 11/07/20 Interval History: Feels absolutely fine; denies fever, chills, nausea, vomiting, or abd pain. To OR later today for cholecystectomy Physical Exam Vital Signs: Vital Signs: Last Vital Signs Temp 98.5 F 11/07/20 15:20 Pulse 80 11/07/20 15:30 Resp 18 11/07/20 15:30 BP 111/68 11/07/20 15:30 Pulse Ox 98 11/07/20 15:30 Body Mass Index 25.0 Gen: in no acute distress HEENT: sclera anicteric, moist mucus membranes Neck: supple Lungs: clear to auscultation bilaterally Heart: regular rate and rhythm, no murmurs Abd: soft, non-tender, non-distended Ext: no edema Skin: warm/well-perfused Neuro: alert and oriented x3, no focal findings Psych: appropriate affect Objective Data Current Medications Generic Name Dose Route Start Last Admin Trade Name Freq PRN Reason Stop Dose Admin Acetaminophen 650 mg 11/03/20 10:39 Acetaminophen 325 Mg Tablet PO ONCE PRN Pain, Mild (Pain Scale 1-3) Acetaminophen 650 mg 11/07/20 15:20 Acetaminophen 325 Mg Tablet PO Q6H PRN Pain, Mild (Pain Scale 1-3) Hydromorphone HCl 0.25 mg 11/07/20 13:28 Hydromorphone Hcl 0.5 Mg/0.5 Ml Syringe IVPUSH Q5M PRN Pain, Severe (Pain Scale 7-10) Promethazine HCl 12.5 mg/ 50.5 mls @ 202 mls/hr 11/07/20 13:28 Sodium Chloride IV ONCE PRN Nausea and Vomiting Lactated Ringer's 1,000 mls @ 50 mls/hr 11/07/20 14:15 11/07/20 11:50 Lr IVCONT 50 mls/hr .Q20H SARAH Administration Lactated Ringer's 1,000 mls @ 80 mls/hr 11/07/20 15:30 Lr IVCONT .[id number] SARAH Ketorolac Tromethamine 15 mg 11/07/20 13:28 Ketorolac Tromethamine 15 Mg/Ml Vial IVPUSH ONCE PRN Pain, Moderate (Pain Scale 4-6 Morphine Sulfate 4 mg 11/07/20 15:20 Morphine Sulfate 4 Mg/Ml Cartridge IVPUSH Q4H PRN Pain, Severe (Pain Scale 7-10) Ondansetron HCl 4 mg 11/03/20 10:39 Ondansetron Hcl 4 Mg/2 Ml Vial IVPUSH ONCE PRN Nausea and Vomiting Ondansetron HCl 4 mg 11/07/20 15:20 Ondansetron Hcl 4 Mg/2 Ml Vial IVPUSH Q6H PRN nausea Oxycodone HCl 5 mg 11/07/20 15:20 Oxycodone Hcl Immed Release 5 Mg Tablet PO Q4H PRN Pain, Moderate (Pain Scale 4-6 Sodium Chloride 3 ml 11/02/20 08:00 11/07/20 09:34 0.9 % Sodium Chloride Flush 3 Ml Syringe IVFLUSH 3 ml QSHIFT [facility] Administration Labs CBC & Chem 7: 11/04/20 05:59 11/06/20 06:46 Labs: Laboratory Results - last 24 hr 11/07/20 09:15 Blood Type O Positive Antibody Screen NEGATIVE Assessment and Plan (1) Choledocholithiasis with acute cholecystitis: Status: Acute Assessment and Plan: hospital d#6 50yo M with recent acute cholecystitis managed non-operatively admitted for choledocholithiasis # choledocholithiasis - s/p ERCP 11/03 with 10mm sphincterotomy and extraction of 3mm CBD stone # chronic cholecystitis - lap vs open rashida today # dispo - anticipate home possibly tomorrow
[2020-11-07] MEDS: HYDROmorphone HCl 0.5 MG/0.5 ML SYRINGE 0.25 MG IVPUSH ×4 (15:40→15:55)
[2020-11-07] MEDS: Ketorolac Tromethamine 15 MG/ML VIAL IVPUSH (16:00)
--- NOTE | 2020-11-07 17:15 | PM.EVENT ---
Event Note Date of Service: 11/07/20 Event Note: seen postop underwent lap rashida today says he has good pain control abd soft stable VS REGGIE drain to subhepatic space - dark blood, scanty doing well postop plan to dc home jus with REGGIE drain - part of posterior wall of GB was left in place due to very poor planes from chronic cholecystitis
--- NOTE | 2020-11-07 18:30 | OP_ITS ---
SURGEON: Shree Fraga MD INDICATIONS: The patient is a 50-year-old male with known gallstone and episode of acute cholecystitis last September. At that time, he did not want to proceed with cholecystectomy in view of his significant improvement with antibiotic treatment. However, he was admitted last week by the emergent because of abnormal LFTs and he was noted to have CBD stone on MRCP. He underwent ERCP last November 03, 2020. The stone was removed and he had sphincterotomy done. He did not want to go home without cholecystectomy at this time in view of the possibility of recurrent problems with this gallstone. He therefore stayed in the hospital. He understand the technique of the procedure of laparoscopic cholecystectomy and possible open. He was aware of the risks, benefits, and alternatives. His LFTs had been normal after ERCP. PREOPERATIVE DIAGNOSIS: Gallstones or recent common bile duct stones, status post ERCP. POSTOPERATIVE DIAGNOSIS: Gallstones or recent common bile duct stones, status post ERCP with chronic cholecystitis. PROCEDURE PERFORMED: Laparoscopic cholecystectomy. ESTIMATED BLOOD LOSS: COMPLICATIONS: ANESTHESIA: ASSISTANTS: SPECIMENS: PATROL COMMANDER: Constance Regalado PA-C. DESCRIPTION OF PROCEDURE: He was brought to the operating room, placed supine on the table under general anesthesia via endotracheal tube. The abdomen was prepped and draped in usual sterile fashion. A surgical time-out was done. The patient received Cefotan 2 g IV preoperatively. I made a small supraumbilical incision using blade #15, carried down to full-thickness skin and subcutaneous fat down to the fascia. The fascia was incised. The peritoneum was entered and through this incision, a Tanya port was introduced. Pneumoperitoneum was introduced to pressure of 15 mmHg. From here on, the rest of procedure was done under vision with 10 mm 0 degree laparoscope. With laparoscopic visualization, proceeded to position another 5 mm port in the epigastric area of the subcostal margin. Examination of the right upper quadrant showed large amount of omentum that was adherent to the upper abdomen including the edge of the liver as well as the peritoneum as well. I therefore had to use the LigaSure to take down these adhesions in the entire right upper quadrant. This took some period of time before I able to release all these adherent omentums on the right upper quadrant. This allowed us to clearly visualize the entire liver edge. Again, there was more adherent omentum on the liver edge, which we had to separate using the LigaSure. By doing so, we were able to eventually see the fundus of the gallbladder. We were able to apply grasper at the fundus and this was used to retract the gallbladder cephalad. By doing so, we were able to see part of the anterior wall of the gallbladder. There were still note of large amount of omentum that was markedly adherent to the anterior wall, so we had to carefully release this using a combination of blunt dissection with [place] dissector as well as sharp dissection with Metzenbaum scissors. We continued this dissection until we were able to clearly expose the entire anterior wall of the gallbladder. As we were able to apply a grasper under what I feel was close to the pouch, we then proceeded to retract the gallbladder in lateral and cephalad fashion. By doing so, we were able to put the approximate area of the cystic duct on stretch. The cystic duct could not be visualized because of the presence of large amounts of thickened and fibrillar tissue consistent with chronic cholecystitis. We had to do careful and prolonged dissection of the neck to gallbladder to carefully clear up this adhere fibrous and areolar tissue until we were able to visualize what appeared to be the junction of the neck of the gallbladder wall and the cystic duct. We then proceeded to continue to dissect the rest of the fibrous adhesions on the medial and lateral aspect until able to clearly visualize the spinous cystic triangle. There was no other obvious tubular structure in this area, so I felt that we had achieved a critical view of the hepatocystic triangle. I therefore applied clips on the cystic duct with 2 clips being applied distally. The cystic duct was transected between clips. Retracting the gallbladder away from the wall of the liver bed, proceeded to do then carefully strip off the rest of the fibrous tissue from the gallbladder. We continued to do this part of the dissection in the [place] dissector and applied clips on what I felt was a cystic artery. This was transected with clips. The gallbladder was noted to be very thickened wall and very fibrotic. The planes was therefore difficult at the interface of the gallbladder wall and liver bed. We proceeded to continue to dissect using the [place] dissector until we were able to directly see what I felt was the interface of the gallbladder and liver bed. I used the electrocautery spatula to carefully incise the gallbladder at this interface. We proceeded to gently separate the gallbladder wall from the liver bed. We continued this slowly, but at some point toward as we reach the mid part of the gallbladder, the planes were extremely difficult to visualize. We entered the lumen of the gallbladder wall. The gallbladder was filled with multiple stones and we had to retrieve the stones using a separate bag. This was retrieved through the epigastric incision . We then re- inserted all ports and reinsufflated. The graspers were reposition on the GB wasll.. Since the gallbladder was tearing easily because of the poor planes, I decided to leave part of the posterior wall of the gallbladder that was very adherent to the bed, and continued to dividethe rest of the gallbladder separate the rest of the liver bed on the areas with better planes. Again, as mentioned, we were able to remove the entiregallbladder except for part of the posterior wall. The gallbladder was retrieved through an Endobag through the epigastric incision. We proceeded to retrieve all the stones that had spilled out. We copiously irrigated. There was note of some bleeding from the divided edges of the gallbladder wall, so we had to use cautery to achieve hemostasis. I also cauterized the mucosal surface part of the posterior wall of the gallbladder that we had left behind. I therefore decided to leave #7 drain. This was positioned underneath the liver bed. This was brought out through the lateral-most port site. This was secured with nylon 3-0 suture through the skin. Again, we _reinsufflated then copiously irrigated and suctioned out the irrigant fluid. We cleared all other visible stones left behind by retrieving these with a grasper. We then proceeded to apply Surgicel into the liver bed as there was some oozing from this area. There was no other obvious arterial bleeding, however. We observed hemostasis with Surgicel in place. There were no signs of any pooling or persistent oozing. I then observed all the entire abdominal cavity and there was no other pathology except for more adhesions on the right side of the abdomen. There was no evidence of any bowel injury or any bile leak. We confirmed good positioning of the drain under the subhepatic space. There was no evidence of any pooling of blood. Once hemostasis was confirmed, proceeded to desufflate the port site. We removed all ports. The Tanya port was removed last. The fascia of the umbilical incision was closed with [id number] Dexon 0 stitch. Skin closure was achieved in all incisions using Dexon 4-0 subcutaneous sutures. Steri-Strips and dressings were applied. All incisions were infiltrated with Marcaine 0.5% for postop anesthesia. The patient tolerated the procedure well. There were no complications noted. Initial and final counts of sponge and instruments were correct. Estimated blood loss was about 75 cc. The patient was extubated without difficulty and transferred to recovery room with stable vital signs. MD JAVAN Castellanos/HERMINIO / [id number] MTDD
[2020-11-07] MEDS: Lactated Ringers 1,000 ML 80 ML IVCONT (19:00)
[2020-11-07] MEDS: Morphine Sulfate 4 MG/ML CARTRIDGE IVPUSH ×2 (19:00→23:43)
[2020-11-08] MEDS: Acetaminophen 325 MG TABLET 650 MG PO (03:02)
[2020-11-08] MEDS: oxyCODONE HCl Immed Release 5 MG TABLET PO (03:02)
[2020-11-08 04:00] VITALS: BP 125/75; PULSE 78; RESP 20; TEMP 36.2; O2SAT 96
[2020-11-08] MEDS: Morphine Sulfate 4 MG/ML CARTRIDGE IVPUSH (06:01)
[2020-11-08] MEDS: Lactated Ringers 1,000 ML 80 ML IVCONT (06:01)
[2020-11-08 06:34] LABS: MANUAL DIFF FLAG NO
[2020-11-08 06:56] LABS: Basophils Percent Auto 0.1 % (0-2); Eosinophils Percent Auto 0.3 % (0-4); Hemoglobin 10.5 g/dl (14.0-18.0); Imm Gran Abs Auto 0.09 X10*3/uL (0.00-0.03); Imm Gran Pct Auto 0.8 % (0.0-0.4); Lymphocytes Absolute Auto 2.2 X10*3/uL (1.2-4.9); Lymphocytes Percent Auto 19.8 % (20-40); Mean Corpuscular HGB Conc 32.8 g/dl (31.0-36.0); Mean Corpuscular Hemoglobin 29.5 pg (27.0-33.0); Mean Corpuscular Volume 89.9 fL (80-98); Mean Platelet Volume 10.4 fL (9.4-12.4); Monocytes Absolute Auto 0.9 X10*3/uL (0.1-1.2); Monocytes Percent Auto 8.2 % (2-11); Neutrophils Absolute Auto 7.9 X10*3/uL (2.0-8.3); Neutrophils Percent Auto 70.8 % (45-73); Platelet Count 261 X10*3/uL (160-400); Red Blood Count 3.56 X10*6/uL (4.60-5.80); Red Cell Distribution Width 13.6 % (11.0-16.0); White Blood Count 11.1 X10*3/uL (4.8-10.8)
[2020-11-08 07:29] VITALS: BP 114/73; PULSE 91; RESP 18; TEMP 36.3; O2SAT 98
[2020-11-08 07:34] LABS: Alanine Aminotransferase 80 U/L (0-40); Albumin Level 3.6 g/dL (3.5-5.0); Alkaline Phosphatase 86 U/L (39-117); Anion Gap 14 (12-20); Aspartate Amino Transferase 39 U/L (5-37); Bilirubin Total 0.7 mg/dL (0.0-1.0); Blood Urea Nitrogen 24 mg/dL (9-16); Calcium 8.2 mg/dL (8.4-10.2); Carbon Dioxide 25 mmol/L (22-29); Chloride 104 mmol/L (96-108); Creatinine Clr Calc Pharmacy 81.5; Estimated Glomerular Filt Rate > 60; Glucose Random 123 mg/dL (60-115); Potassium 4.3 mmol/l (3.3-5.1); Sodium 139 mmol/L (135-145); Total Protein 6.1 g/dL (6.5-8.0)
--- NOTE | 2020-11-08 07:54 | PM.PNGS ---
Subjective Subjective Date of Service: 11/08/20 <Constance Regalado PA-C - Last Filed: 11/08/20 07:57> 11/08/20 <Shree Fraga MD - Last Filed: 11/08/20 08:55> Interval history: Had severe pain last night, hard to get under control but better controlled this morning. Wasnt really able to eat dinner last night or get OOB due to pain. <Constance Regalado PA-C - Last Filed: 11/08/20 07:57> Physical Exam Vital Signs: Vital Signs: Last Vital Signs Temp 97.4 F 11/08/20 07:29 Pulse 91 11/08/20 07:29 Resp 18 11/08/20 07:29 BP 114/73 11/08/20 07:29 Pulse Ox 98 11/08/20 07:29 Body Mass Index 25.0 <MELANIE Rodriguez Last Filed: 11/08/20 07:57> Const: General: comfortable, no acute distress and alert <Constance Regalado PA-C - Last Filed: 11/08/20 07:57> Orientation/consciousness: patient oriented x3 <MELANIE Rodriguez Last Filed: 11/08/20 07:57> Eyes: Sclerae: sclerae normal <MELANIE Rodriguez Last Filed: 11/08/20 07:57> Resp: Effort & Inspection: normal respiratory effort <MELANIE Rodriguez Last Filed: 11/08/20 07:57> GI: Other: REGGIE drain serosanguineous output <MELANIE Rodriguez Last Filed: 11/08/20 07:57> Inspection: No distended and Yes incision (dressings clean, intact) <MELANIE Rodriguez Last Filed: 11/08/20 07:57> Palpation (GI): Soft to palpation, Tenderness to palpation present (GI) (incisional), no guarding, not rigid and No Rebound tenderness present <MELANIE Rodriguez Last Filed: 11/08/20 07:57> Skin: General skin exam: no rashes or lesions noted <Constance Regalado PA-C - Last Filed: 11/08/20 07:57> Neuro: General: patient oriented x3 <MELANIE Rodriguez Last Filed: 11/08/20 07:57> Extrem: General: Yes no clubbing, cyanosis or edema <MELANIE oRdriguez Last Filed: 11/08/20 07:57> Progress Note: A&P Assessment and plan (1) Choledocholithiasis with acute cholecystitis: Status: Acute <Constance Regalado PA-C - Last Filed: 11/08/20 07:57> Assessment and Plan: POD #1 s/p lap CCY. Having some difficulty with pain control. VSS. Abd exam benign with appropriate post op tenderness, REGGIE output nonbilious. WBC mildly elevated this am- likely reactive. Will adjust pain medication. Keep REGGIE in place, will remove prior to d/c. Likely home tomorrow if continues to do well. <Constance Regalado PA-C - Last Filed: 11/08/20 07:57> (2) Gallstones: Status: Acute <MELANIE Rodriguez Last Filed: 11/08/20 07:57> Assessment and Plan: pain much better this morning looks comfortable REGGIE drain scanty, old blood clinically looks well ok to dc home later today once with good pain control if going home today - plan to dc REGGIE in the office dw pt <Shree Fraga MD - Last Filed: 11/08/20 08:55> (3) Common bile duct (CBD) obstruction: Problem details: S/p ERCP 11/03/2020 <Constance Regalado PA-C - Last Filed: 11/08/20 07:57> Status: Acute <MELANIE Rodriguez Last Filed: 11/08/20 07:57> Fall Risk Details Current Medications: Current Medications Generic Name Dose Route Start Last Admin Trade Name Freq PRN Reason Stop Dose Admin Acetaminophen 650 mg 11/07/20 15:20 11/08/20 03:02 Acetaminophen 325 Mg Tablet PO 650 mg Q6H PRN Administration Pain, Mild (Pain Scale 1-3) Lactated Ringer's 1,000 mls @ 80 mls/hr 11/07/20 15:30 11/08/20 06:01 Lr IVCONT 80 mls/hr .[id number] SARAH Administration Morphine Sulfate 4 mg 11/07/20 15:20 11/08/20 06:01 Morphine Sulfate 4 Mg/Ml Cartridge IVPUSH 4 mg Q4H PRN Administration Pain, Severe (Pain Scale 7-10) Ondansetron HCl 4 mg 11/07/20 15:20 Ondansetron Hcl 4 Mg/2 Ml Vial IVPUSH Q6H PRN nausea Oxycodone HCl 5 mg 11/07/20 15:20 11/08/20 03:02 Oxycodone Hcl Immed Release 5 Mg Tablet PO 5 mg Q4H PRN Administration Pain, Moderate (Pain Scale 4-6 Sodium Chloride 3 ml 11/02/20 08:00 11/08/20 02:35 0.9 % Sodium Chloride Flush 3 Ml Syringe IVFLUSH Not Given QSHIFT SARAH <Constance Regalado PA-C - Last Filed: 11/08/20 07:57> Time Spent With Patient Time: Total time spent is greater than 50% in coordination of care (as documented) at patient's floor/unit and/or counseling patient: <Constance Regalado PA-C - Last Filed: 11/08/20 07:57> Time with patient: 15 - 24 minutes <Constance Regalado PA-C - Last Filed: 11/08/20 07:57>
[2020-11-08] MEDS: 0.9 % Sodium Chloride Flush 3 ML SYRINGE IVFLUSH ×3 (08:23→19:40)
[2020-11-08 12:00] VITALS: BP 106/57; PULSE 81; RESP 16; TEMP 36.6; O2SAT 98
--- NOTE | 2020-11-08 12:43 | HO.PM.IMPN ---
Subjective Subjective Date of Service: 11/08/20 Interval History: c/o severe postop pain no N/V REGGIE drain in place Physical Exam Vital Signs: Vital Signs: Last Vital Signs Temp 97.8 F 11/08/20 12:00 Pulse 81 11/08/20 12:00 Resp 16 11/08/20 12:00 BP 106/57 L 11/08/20 12:00 Pulse Ox 98 11/08/20 12:00 Body Mass Index 25.0 Gen: in no acute distress HEENT: sclera anicteric, moist mucus membranes Neck: supple Lungs: clear to auscultation bilaterally Heart: regular rate and rhythm, no murmurs Abd: dry bandages covering lap rashida incisions sites, REGGIE drain with serosanguinous liquid Ext: no edema Skin: warm/well-perfused Neuro: alert and oriented x3, no focal findings Psych: appropriate affect Objective Data Current Medications Generic Name Dose Route Start Last Admin Trade Name Freq PRN Reason Stop Dose Admin Acetaminophen 1,000 mg in 100 mls @ 400 mls/hr 11/08/20 08:00 11/08/20 08:46 Ofirmev IV 11/08/20 20:14 Infused Q6H SARAH Infusion Morphine Sulfate 4 mg 11/07/20 15:20 11/08/20 06:01 Morphine Sulfate 4 Mg/Ml Cartridge IVPUSH 4 mg Q4H PRN Administration Pain, Severe (Pain Scale 7-10) Ondansetron HCl 4 mg 11/07/20 15:20 Ondansetron Hcl 4 Mg/2 Ml Vial IVPUSH Q6H PRN nausea Oxycodone HCl 5 mg 11/07/20 15:20 11/08/20 03:02 Oxycodone Hcl Immed Release 5 Mg Tablet PO 5 mg Q4H PRN Administration Pain, Moderate (Pain Scale 4-6 Oxycodone HCl 10 mg 11/08/20 07:58 Oxycodone Hcl Immed Release 5 Mg Tablet PO Q4H PRN Pain, Severe (Pain Scale 7-10) Sodium Chloride 3 ml 11/02/20 08:00 11/08/20 08:23 0.9 % Sodium Chloride Flush 3 Ml Syringe IVFLUSH 3 ml QSHIFT SARAH Administration Labs CBC & Chem 7: 11/08/20 06:16 11/08/20 06:16 Labs: Laboratory Results - last 24 hr 11/08/20 11/08/20 06:16 06:16 WBC 11.1 H RBC 3.56 L D Hgb 10.5 L D Hct 32.0 L D MCV 89.9 MCH 29.5 MCHC 32.8 RDW 13.6 Plt Count 261 MPV 10.4 Immature Gran % (Auto) 0.8 H Neut % (Auto) 70.8 Lymph % (Auto) 19.8 L Toole % (Auto) 8.2 Eos % (Auto) 0.3 Baso % (Auto) 0.1 Lymph # (Auto) 2.2 Toole # (Auto) 0.9 Eos # (Auto) 0.0 Baso # (Auto) 0.0 Abs Immat Gran (auto) 0.09 H Absolute Neuts (auto) 7.9 Absolute Nucleated RBC 0.000 Nucleated RBC % (auto) 0.0 Sodium 139 Potassium 4.3 Chloride 104 Carbon Dioxide 25 Anion Gap 14 BUN 24 H Creatinine 1.06 Estim Creat Clear Calc 81.5 Estimated GFR > 60 Random Glucose 123 H Calcium 8.2 L Total Bilirubin 0.7 AST 39 H D ALT 80 H Alkaline Phosphatase 86 Total Protein 6.1 L Albumin 3.6 Assessment and Plan (1) Choledocholithiasis with acute cholecystitis: Status: Acute Assessment and Plan: hospital d#7 50yo M with recent acute cholecystitis managed non-operatively admitted for choledocholithiasis # choledocholithiasis - s/p ERCP 11/03/21 with 10mm sphincterotomy and extraction of 3mm CBD stone # chronic cholecystitis - s/p lap rashida 11/07/20. pain control with APAP, oxycodone, morphine # dispo - anticipate home possibly tomorrow, drain removal in surgery clinic in 1 wk
[2020-11-08] MEDS: oxyCODONE HCl Immed Release 5 MG TABLET 10 MG PO ×3 (13:38→23:38)
--- NOTE | 2020-11-08 13:50 | HO.POSTANES ---
Post Anesthesia Evaluation Post Anesthesia Evaluation Vital Signs: Vital Signs Temp Pulse Resp BP Pulse Ox 11/08/20 12:00 97.8 F 81 16 106/57 L 98 11/08/20 07:29 97.4 F 91 18 114/73 98 11/08/20 04:00 97.2 F 78 20 125/75 96 Anesthesia: General Mental Status: Awake Pain Control: Satisfactory Nausea/Vomiting: None Hydration: Adequate Anesthesia-Related Issues: No Anes. Related Issues
[2020-11-08 15:34] VITALS: BP 127/61; PULSE 85; RESP 18; TEMP 36.2; O2SAT 95
[2020-11-08 19:41] VITALS: BP 124/86; PULSE 90; RESP 20; TEMP 36.4; O2SAT 96
[2020-11-08 23:20] VITALS: BP 104/64; PULSE 86; RESP 20; TEMP 36.7; O2SAT 91
[2020-11-09 03:22] VITALS: BP 123/69; PULSE 73; RESP 20; TEMP 36.9; O2SAT 96
[2020-11-09] MEDS: oxyCODONE HCl Immed Release 5 MG TABLET 10 MG PO ×2 (06:33→13:25)
[2020-11-09 07:21] VITALS: BP 118/67; PULSE 77; RESP 16; TEMP 36.7; O2SAT 98
[2020-11-09] MEDS: Morphine Sulfate 4 MG/ML CARTRIDGE IVPUSH (07:40)
[2020-11-09] MEDS: 0.9 % Sodium Chloride Flush 3 ML SYRINGE IVFLUSH (07:42)
--- NOTE | 2020-11-09 07:42 | PM.PNGS ---
Subjective Subjective Date of Service: 11/09/20 <Constance Regalado PA-C - Last Filed: 11/09/20 07:45> 11/09/20 <Shree Fraga MD - Last Filed: 11/09/20 08:21> Interval history: Having difficulty with pain control- reports diffuse pain and incisional pain. Relieved with oxycodone 10mg and ofirmev. Difficulty getting OOB and ambulating due to pain. <Constance Regalado PA-C - Last Filed: 11/09/20 07:45> Physical Exam Vital Signs: Vital Signs: Last Vital Signs Temp 98.0 F 11/09/20 07:21 Pulse 77 11/09/20 07:21 Resp 16 11/09/20 07:21 BP 118/67 11/09/20 07:21 Pulse Ox 98 11/09/20 07:21 Body Mass Index 25.0 <Constance Regalado PA-C - Last Filed: 11/09/20 07:45> Chemistry 11/08/20 06:16 Sodium 139 Potassium 4.3 Carbon Dioxide 25 BUN 24 H Creatinine 1.06 Calcium 8.2 L Hematology 11/08/20 06:16 WBC 11.1 H Hgb 10.5 L D Plt Count 261 <Shree Fraga MD - Last Filed: 11/09/20 08:21> Const: General: no acute distress and alert <MELANIE Rodriguez Last Filed: 11/09/20 07:45> Orientation/consciousness: patient oriented x3 <Constance Regalado PA-C - Last Filed: 11/09/20 07:45> Eyes: Sclerae: sclerae normal <Constance Regalado PA-C - Last Filed: 11/09/20 07:45> Resp: Effort & Inspection: normal respiratory effort <MELANIE Rodriguez Last Filed: 11/09/20 07:45> Cardio: Rate: regular rate <MELANIE Rodriguez Last Filed: 11/09/20 07:45> GI: Palpation (GI): Soft to palpation, Tenderness to palpation present (GI) (incisional), no guarding, not rigid and No Rebound tenderness present <MELANIE Rodriguez Last Filed: 11/09/20 07:45> Skin: General skin exam: no rashes or lesions noted <Constance Regalado PA-C - Last Filed: 11/09/20 07:45> Neuro: General: patient oriented x3 <MELANIE Rodriguez Last Filed: 11/09/20 07:45> Progress Note: A&P Assessment and plan (1) Common bile duct (CBD) obstruction: Problem details: S/p ERCP 11/03/2020 <Constance Regalado PA-C - Last Filed: 11/09/20 07:45> Status: Acute <MELANIE Rodriguez Last Filed: 11/09/20 07:45> Assessment and Plan: had pain issues especially during removal of REGGIE otherwise looks well good vital signs tolerating diet ok to dc home today when pain control better dw pt and Adry seen and examined independently <Shree Fraga MD - Last Filed: 11/09/20 08:21> (2) Choledocholithiasis with acute cholecystitis: Status: Acute <MELANIE Rodriguez Last Filed: 11/09/20 07:45> Assessment and Plan: Having difficulty with post op pain control. VSS. Abd exam benign- incisions clean, appropriate post op tenderness. REGGIE output with dark old blood, nonbilious. REGGIE removed. Will reassess later today- if more comfortable from pain standpoint, stable for d/c to home. F/u in office in 2 weeks. <Constance Regalado PA-C - Last Filed: 11/09/20 07:45> Fall Risk Details Current Medications: Current Medications Generic Name Dose Route Start Last Admin Trade Name Freq PRN Reason Stop Dose Admin Morphine Sulfate 4 mg 11/07/20 15:20 11/08/20 06:01 Morphine Sulfate 4 Mg/Ml Cartridge IVPUSH 4 mg Q4H PRN Administration Pain, Severe (Pain Scale 7-10) Morphine Sulfate 2 mg 11/09/20 07:41 Morphine Sulfate 2 Mg/Ml Cartridge IVPUSH 11/09/20 07:42 ONCE ONE Ondansetron HCl 4 mg 11/07/20 15:20 Ondansetron Hcl 4 Mg/2 Ml Vial IVPUSH Q6H PRN nausea Oxycodone HCl 5 mg 11/07/20 15:20 11/08/20 03:02 Oxycodone Hcl Immed Release 5 Mg Tablet PO 5 mg Q4H PRN Administration Pain, Moderate (Pain Scale 4-6 Oxycodone HCl 10 mg 11/08/20 07:58 11/09/20 06:33 Oxycodone Hcl Immed Release 5 Mg Tablet PO 10 mg Q4H PRN Administration Pain, Severe (Pain Scale 7-10) Sodium Chloride 3 ml 11/02/20 08:00 11/08/20 19:40 0.9 % Sodium Chloride Flush 3 Ml Syringe IVFLUSH 3 ml QSHIFT SARAH Administration <Constance Regalado PA-C - Last Filed: 11/09/20 07:45> Time Spent With Patient Time: Total time spent is greater than 50% in coordination of care (as documented) at patient's floor/unit and/or counseling patient: <Constance Regalado PA-C - Last Filed: 11/09/20 07:45> Time with patient: 15 - 24 minutes <Constance Regalado PA-C - Last Filed: 11/09/20 07:45>
--- NOTE | 2020-11-09 09:59 | MHC.CM.PN ---
CM RECIVED CALL FROM PTS JAQUI FUNES AND REPORTED SHE WOULD BE MEETING WITH FINANCIAL SERVICES TOMORROW 11/10/20 AT 11AM TO FINISH APPLICATION FOR HEALTH INSURANCE FOR PT, PT'S REPORTED [employer] DIDN'T PROCESS PT'S INCOME AND THAT WAS HOLDING THINGS UP, PT'S SPOUSE REPORTS PT SAID HE WAS DISCHARGING TODAY AT 1PM, DISCHARGE ORDERS ARE NOT IN YET HOWEVER WILL PLAN ON PICKING UP PT AT 1PM, CM WILL CONTACT ATTENDING AND LET NURSING KNOW ABOUT PT'S DISPOSITION.
[2020-11-09 11:18] VITALS: BP 120/68; PULSE 81; RESP 16; TEMP 36.2; O2SAT 96
--- NOTE | 2020-11-09 11:55 | MHC.CM.PN ---
PT DISCHARGING TODAY HOME SELF-CARE WITH FOLLOW-UP WITH SURGICAL, PTS TO TRANSPORT PT AT 1PM. PT'S WILL FOLLOW-UP WITH PCP ONCE INSURANCE IS FINALIZED ON 11/10/20
--- NOTE | 2020-11-09 12:06 | P.DS_ITS ---
DS: Providers Provider Date of Service: 11/09/20 Date of admission: 11/02/20 05:55 Primary care physician: None Physician Consults: 11/02/20 07:35 Consult to Gastroenterology Routine Consulting Provider: Rehan Anna Reason for consultation: cholecystitis Has provider been notified: Yes Consult to General Surgery Routine Consulting Provider: Shree Fraga Reason for consultation: cholecystitis Has provider been notified: No 11/02/20 08:47 Consult to General Surgery Routine Consulting Provider: Shree Fraga Reason for consultation: cholecystitis, elevated lfts Has provider been notified: Yes DS: Diagnosis Discharge Diagnosis (1) Common bile duct (CBD) obstruction: Status: Acute Problem details: S/p ERCP 11/03/2020 (2) Cholecystitis with cholelithiasis: Status: Acute (3) Gallstones: Status: Acute Problem details: s/p lap rashida 11/07/2020 DS: Medications Discharge Medications Home Medications: Home Medications Medication Instructions Recorded Confirmed No Known Home Meds 11/02/20 11/02/20 Previous Rx's Medication Instructions Recorded oxycodone 5 mg PO Q4H PRN #20 tab 11/09/20 DS: Summary Hospital Course Hospital Course: From the admission history and physical by hospitalist Vijay Justice, 11/02/20: 50 year old man presented with abdominal pain. Beginning in September he had episodes of abd pain. Was hospitalized her for cholecystitis and treated conservatively with antibiotics as he wanted to avoid surgery at that time. Improved and went home. Stated he had another bout of abd pain on that resolved and then yesterday he had an episode that began after lunch and continued for several hours. Has now improved. Pain is in right mid abdomen. Associated with nausea but no vomiting. No fevers/chills/diarrhea. Currently feels well and rates his pain at a 2/10. He was admitted to the medical/surgical floor with consultations by Gastroenterology and General Surgery. He underwent ERCP on 11/03/20 with 10mm sphincterotomy and extraction of a 3mm CBD stone. He underwent laparoscopic cholecystectomy on 11/07/20. REGGIE drain was removed on postoperative day 2 and he was discharged home with surgical clinical follow-up and instructions to establish primary care. # chronic cholecystitis Time Spent with Patient Time attestation: Total time spent providing and/or coordinating discharge services: 35 Physical Exam Vital Signs: Vital Signs: Last Vital Signs Temp 97.2 F 11/09/20 11:18 Pulse 81 11/09/20 11:18 Resp 16 11/09/20 11:18 BP 120/68 11/09/20 11:18 Pulse Ox 96 11/09/20 11:18 Body Mass Index 25.0 Gen: in no acute distress HEENT: sclera anicteric, moist mucus membranes Neck: supple Lungs: clear to auscultation bilaterally Heart: regular rate and rhythm, no murmurs Abd: soft, lap rashida incisions clean/dry/intact with steri-strips in place, REGGIE removed Ext: no edema Skin: warm/well-perfused Neuro: alert and oriented x3, no focal findings Psych: appropriate affect DS: Data Data Completed and Pending Completed studies during hospitalization [Text1]: Pending at discharge 11/07/20 14:45 Surgical [PTH] Routine Labs on day of discharge: Laboratory Results WBC 11.1 X10*3/uL (4.8-10.8) H 11/08/20 06:16 RBC 3.56 X10*6/uL (4.60-5.80) L D 11/08/20 06:16 Hgb 10.5 g/dl (14.0-18.0) L D 11/08/20 06:16 Hct 32.0 % (42-52) L D 11/08/20 06:16 MCV 89.9 fL (80-98) 11/08/20 06:16 MCH 29.5 pg (27.0-33.0) 11/08/20 06:16 MCHC 32.8 g/dl (31.0-36.0) 11/08/20 06:16 RDW 13.6 % (11.0-16.0) 11/08/20 06:16 Plt Count 261 X10*3/uL (160-400) 11/08/20 06:16 MPV 10.4 fL (9.4-12.4) 11/08/20 06:16 Immature Gran % (Auto) 0.8 % (0.0-0.4) H 11/08/20 06:16 Neut % (Auto) 70.8 % (45-73) 11/08/20 06:16 Lymph % (Auto) 19.8 % (20-40) L 11/08/20 06:16 Rankin % (Auto) 8.2 % (2-11) 11/08/20 06:16 Eos % (Auto) 0.3 % (0-4) 11/08/20 06:16 Baso % (Auto) 0.1 % (0-2) 11/08/20 06:16 Lymph # (Auto) 2.2 X10*3/uL (1.2-4.9) 11/08/20 06:16 Rankin # (Auto) 0.9 X10*3/uL (0.1-1.2) 11/08/20 06:16 Eos # (Auto) 0.0 X10*3/uL (0.0-0.4) 11/08/20 06:16 Baso # (Auto) 0.0 X10*3/uL (0.0-0.2) 11/08/20 06:16 Abs Immat Gran (auto) 0.09 X10*3/uL (0.00-0.03) H 11/08/20 06:16 Absolute Neuts (auto) 7.9 X10*3/uL (2.0-8.3) 11/08/20 06:16 Absolute Nucleated RBC 0.000 X10*3/uL (0.0-0.012) 11/08/20 06:16 Nucleated RBC % (auto) 0.0 /100WBC (0.0-0.2) 11/08/20 06:16 PT 12.3 SEC (10.8-13.0) 11/03/20 05:23 INR 1.0 (0.9-1.1) 11/03/20 05:23 Hold Blue Top SEE NOTE 11/01/20 23:30 Sodium 139 mmol/L (135-145) 11/08/20 06:16 Potassium 4.3 mmol/l (3.3-5.1) 11/08/20 06:16 Chloride 104 mmol/L (96-108) 11/08/20 06:16 Carbon Dioxide 25 mmol/L (22-29) 11/08/20 06:16 Anion Gap 14 (12-20) 11/08/20 06:16 BUN 24 mg/dL (9-16) H 11/08/20 06:16 Creatinine 1.06 mg/dL (0.5-1.4) 11/08/20 06:16 Estim Creat Clear Calc 81.5 11/08/20 06:16 Estimated GFR > 60 11/08/20 06:16 Random Glucose 123 mg/dL (60-115) H 11/08/20 06:16 Calcium 8.2 mg/dL (8.4-10.2) L 11/08/20 06:16 Total Bilirubin 0.7 mg/dL (0.0-1.0) 11/08/20 06:16 Direct Bilirubin 0.2 mg/dL (0.0-0.5) 11/06/20 06:46 AST 39 U/L (5-37) H D 11/08/20 06:16 ALT 80 U/L (0-40) H 11/08/20 06:16 Alkaline Phosphatase 86 U/L (39-117) 11/08/20 06:16 Total Protein 6.1 g/dL (6.5-8.0) L 11/08/20 06:16 Albumin 3.6 g/dL (3.5-5.0) 11/08/20 06:16 Lipase 71 U/L (8-78) 11/01/20 23:30 Urine Color DARK YELLOW 11/02/20 00:22 Urine Appearance HAZY 11/02/20 00:22 Urine pH 7.0 (5.0-8.0) 11/02/20 00:22 Ur Specific Sullivan 1.025 (1.005-1.025) 11/02/20 00:22 Urine Protein 2+ MG/DL (NEG-TRACE) H 11/02/20 00:22 Urine Glucose (UA) NEG MG/DL (NEG) 11/02/20 00:22 Urine Ketones NEG MG/DL (NEG) 11/02/20 00:22 Urine Blood 3+ (NEG) H 11/02/20 00:22 Urine Nitrite NEG (NEG) 11/02/20 00:22 Ur Leukocyte Esterase NEG (NEG) 11/02/20 00:22 Urine RBC 76-150 /HPF (0) H 11/02/20 00:22 Urine WBC 0 /HPF (0-4) 11/02/20 00:22 Ur Squamous Epith Cells TRACE /LPF 11/02/20 00:22 Amorphous Sediment 3+ /LPF 11/02/20 00:22 Urine Bacteria NONE /LPF 11/02/20 00:22 Urine Mucus TRACE /LPF 11/02/20 00:22 COVID-19 (TEENA) Negative (Negative) 11/02/20 04:23 COVID-19 Clin Com See Note 11/02/20 04:23 Blood Type O Positive 11/07/20 09:15 Antibody Screen NEGATIVE 11/07/20 09:15 Impressions Cholangiopancreatography MRI 11/02/20 00:00 IMPRESSION: Gallstones. Upper normal-size gallbladder, gallbladder wall thickening and edema. Findings are suggestive of acute cholecystitis. Small simple cyst in the dome of the liver. Mild extrahepatic bile duct dilatation and small distal common bile duct stone. Small right renal cysts. Abdomen Ultrasound 11/02/20 01:13 IMPRESSION: Cholelithiasis with stone filled gallbladder. There is gallbladder wall thickening present. These findings are concerning for cholecystitis. The appearance is similar to prior. Guidance Fluoroscopy 11/03/20 09:07 IMPRESSION: . Small filling defects in the cystic duct consistent with small stones. No filling defect or narrowing seen within the common bile duct. On the last images of ERCP the common bile duct is well opacified without any intraluminal filling defect or narrowing. Discharge Plan Discharge Patient Disposition: Home, Self-Care Referrals: Shree Fraga MD [Physician] - 2 Weeks Marko Salcedo MD [Physician] - Discharge Medications: New oxycodone 5 mg Tablet 5 mg PO Q4H PRN (Reason: Pain, Severe) Qty: 20 RF: 0 No Action No Known Home Meds RF: 0 Discharge Orders: Discharge Order (Routine); Ordered 11/09/20 Ordered By: Timoteo Simmons Diet: low fat, low cholesterol Activity on Discharge: No heavy lifting Patient Instructions: Cholecystitis (ED), Low Fat Diet (DC), Laparoscopic Cholecystectomy (DC) Activity Restrictions/Additional Instructions: If the incision area is tender, you may apply an ice pack for short intervals (No more than 20 minutes on, followed by at least 20 minutes off). Do not apply heat. Do not use creams, lotions, or topical antibiotics unless instructed to do so by your surgeon. These can cause infection or allergic reaction. Ok to shower 24 hours after your surgery. Remove bandaids in 2 days and replace. You have steri strips (small white cloth strips) covering your incision- these will fall off ~1 week. Call Your Doctor If: -Your temperature exceeds 101.5? F -You experience excessive pain or swelling -You have an unexpected reaction to medication -You have excessive bleeding -You experience continued vomiting/nausea -Your incision begins to separate -Your incision shows signs of infection such as increased redness, swelling, excessive pain, drainage (light blood or clear fluid is normal) or heat Visit Report Forms: Patient Portal Discharge page Care Plan Goals: resolution of abdominal pain Health Concerns: gallstone disease Plan of Treatment: surgically treated pain control follow up with Dr Fraga, [facility], in [address] [place] [address] also please establish primary care; try [facility] [address] [facility], [address] [place] [address] Phone: (P) [phone] [facility] [address] Phone: (P) [phone]
== END 2020-11-09 14:38 | disposition home or self-care (01) | DRG 263 ==
LOC: HO.ED 11-02 04:01 → HO.IMC 11-02 06:41 → HO.S3 11-04 18:46
PROVIDERS: Family Medicine; Internal Medicine; Internal Medicine Gastroenterology; Physician Assistant Surgical; Surgery; Admitting Provider Internal Medicine; Emergency Provider Student in an Organized Health Care Education/Training Program; Visit Provider Internal Medicine
PROC: 0F798ZZ Dilation of Common Bile Duct, Via Natural or Artificial Opening Endoscopic (ICD-10-PCS; CPT 43260; principal; 2020-11-03 10:00)
PROC: 0FT44ZZ Resection of Gallbladder, Percutaneous Endoscopic Approach (ICD-10-PCS; CPT 47562; principal; 2020-11-07 13:30)
DX: K80.45 Calculus of bile duct with chronic cholecystitis with obstruction (principal); Z20.828 Contact with and (suspected) exposure to other viral communicable diseases
CPT/HCPCS: 43262; 43264; 47562; 36415; 74181; 76705; 80048; 80053; 80076; 81001; 83690; 85025; 85027; 85610; 86850; 86900; 86901; 87635; 88304; 99218; 99285; C1769; J0131; J1100; J1170; J1610; J1885; J1956; J2250; J2270; J2370; J2405; J3010; J3430; Q9967

== ENCOUNTER → 2020-11-21 11:54 | Outpatient (BNVA) | payer OTHER, SELFPAY | PROVIDERS: Visit Provider Surgery | DX: K80.00 Calculus of gallbladder with acute cholecystitis without obstruction (principal) | CPT/HCPCS: 99212 ==

== ENCOUNTER 2021-02-22 10:19 | Outpatient (REF) | payer OTHER, SELFPAY ==
[2021-02-22 11:12] LABS: MANUAL DIFF FLAG NO
[2021-02-22 11:31] LABS: Basophils Percent Auto 0.4 % (0-2); Eosinophils Absolute Auto 0.2 X10*3/uL (0.0-0.4); Eosinophils Percent Auto 2.8 % (0-4); Hematocrit 41.8 % (42-52); Imm Gran Abs Auto 0.03 X10*3/uL (0.00-0.03); Imm Gran Pct Auto 0.4 % (0.0-0.4); Lymphocytes Absolute Auto 2.1 X10*3/uL (1.2-4.9); Lymphocytes Percent Auto 31.4 % (20-40); Mean Corpuscular HGB Conc 31.1 g/dl (31.0-36.0); Mean Corpuscular Hemoglobin 26.2 pg (27.0-33.0); Mean Corpuscular Volume 84.3 fL (80-98); Mean Platelet Volume 10.4 fL (9.4-12.4); Monocytes Absolute Auto 0.4 X10*3/uL (0.1-1.2); Monocytes Percent Auto 5.8 % (2-11); Neutrophils Percent Auto 59.2 % (45-73); Platelet Count 310 X10*3/uL (160-400); Red Blood Count 4.96 X10*6/uL (4.60-5.80); Red Cell Distribution Width 13.8 % (11.0-16.0); White Blood Count 6.7 X10*3/uL (4.8-10.8)
[2021-02-22 12:01] LABS: Alanine Aminotransferase 13 U/L (0-40); Albumin Level 4.4 g/dL (3.5-5.0); Alkaline Phosphatase 90 U/L (39-117); Anion Gap 12 (12-20); Aspartate Amino Transferase 17 U/L (5-37); Bilirubin Total 0.6 mg/dL (0.0-1.0); Blood Urea Nitrogen 16 mg/dL (9-16); Calcium 9.5 mg/dL (8.4-10.2); Carbon Dioxide 26 mmol/L (22-29); Chloride 104 mmol/L (96-108); Cholesterol 156 mg/dL; Estimated Glomerular Filt Rate > 60; Glucose Fasting 89 mg/dL (60-99); HDL Cholesterol 38 mg/dL; Iron 47 mcg/dL (45-160); LDL Cholesterol Calculated 99 mg/dl; Percent Iron Saturation 12 % (15-50); Potassium 4.3 mmol/L (3.3-5.1); Sodium 138 mmol/L (135-145); Total Iron Binding Capacity 381 mcg/dL (228-428); Total Protein 8.1 g/dL (6.5-8.0); Triglycerides 97 mg/dL; Unsaturated Iron Binding 334 ug/dL
[2021-02-22 12:23] LABS: Ferritin 19 ng/mL (20-250)
== END 2021-02-22 10:20 | disposition home or self-care (01) ==
LOC: HO.HMGCLDS 10:19
PROVIDERS: PCP Internal Medicine; Visit Provider Internal Medicine
DX: Z00.01 Encounter for general adult medical examination with abnormal findings (principal); L98.9 Disorder of the skin and subcutaneous tissue, unspecified; K80.00 Calculus of gallbladder with acute cholecystitis without obstruction; K62.9 Disease of anus and rectum, unspecified; D64.9 Anemia, unspecified; N50.9 Disorder of male genital organs, unspecified
CPT/HCPCS: 36415; 80053; 80061; 82728; 83540; 85025

== ENCOUNTER → 2021-03-03 15:20 | Outpatient (BNVA) | payer OTHER, SELFPAY | PROVIDERS: PCP Internal Medicine; Referring Provider Internal Medicine; Visit Provider Surgery | DX: R23.4 Changes in skin texture (principal) | CPT/HCPCS: 99212 ==

== ENCOUNTER → 2021-03-29 15:42 | Outpatient (BNVA) | payer OTHER, SELFPAY | PROVIDERS: PCP Internal Medicine; Referring Provider Internal Medicine; Visit Provider Surgery | DX: L02.415 Cutaneous abscess of right lower limb (principal); L02.416 Cutaneous abscess of left lower limb | CPT/HCPCS: 99212 ==

== ENCOUNTER 2021-03-31 12:16 | Day surgery (SDC) | payer OTHER, SELFPAY ==
--- NOTE | 2021-03-30 09:10 | HO.ANESPROP2 ---
Documented by User: Kimberly Sanchezney 03/30/21 09:11 HPI - Anesthesia Eval Consult details Narrative: 50yo M for I&D Multiple Cysts to Left and Right Medial Thighs and Perineum PMFSH Active Problems Active Problems: All Active Problems (Updated 03/29/21 @ 16:53 by Shree Fraga MD) Multiple abscesses of both legs (Acute) Skin induration (Acute) Cerumen impaction (Acute) Lesion of male perineum (Acute) Lesion of scrotum (Acute) Scrotal skin lesion (Acute) Normocytic anemia (Acute) Past Medical History Medical History (Updated 03/29/21 @ 16:53 by Shree Fraga MD) Cholecystitis, acute with cholelithiasis Common bile duct (CBD) obstruction Gallstones Lesion of male perineum Lesion of scrotum Multiple abscesses of both legs No known health problems Normocytic anemia Scrotal skin lesion Skin induration Family History Family History Father High cholesterol Heavy smoker ASHD (arteriosclerotic heart disease) Mother Cirrhosis Diabetes mellitus Brother No problems noted. Sister No problems noted. Son No problems noted. Daughter No problems noted. Maternal Uncle ASHD (arteriosclerotic heart disease) Paternal Aunt Rheumatoid arthritis Surgical History Surgical History History of laparoscopic cholecystectomy No pertinent past surgical history Social History Social History Alcohol intake: never Second Hand Smoke Exposure: No Substance Use Type: Marijuana Advance Directives: No Advance Directives Information Provided: Yes service: No Current occupational status: employed Meds Allergies Allergy/AdvReac Type Severity Reaction Status Date / Time No Known Allergies Allergy Verified 03/03/21 15:29 Home Medications Medication Instructions Recorded Confirmed Last Taken Type multivitamin 1 tab PO DAILY 03/29/21 03/29/21 Unknown History Exam Exam Date and Time: March 30, 2021 0910 Pertinent Lab Results Pertinent Lab Results: Laboratory Tests 02/22/21 02/22/21 10:27 10:27 WBC 6.7 Hgb 13.0 L D Hct 41.8 L D Plt Count 310 Sodium 138 Potassium 4.3 Chloride 104 Carbon Dioxide 26 BUN 16 Creatinine 1.04 Narrative Narrative: EKG 11/2020 Vent. Rate : 078 BPM Atrial Rate : 078 BPM P-R Int : 136 ms QRS Dur : 090 ms QT Int : 416 ms P-R-T Axes : 054 036 018 degrees QTc Int : 474 ms Normal sinus rhythm with sinus arrhythmia Minimal voltage criteria for LVH, may be normal variant Nonspecific ST and T wave abnormality Abnormal ECG No previous ECGs available Assessment and Plan Assessment Anesthesia Assessment: Chart Reviewed Documented by User: Yesiac Valles 03/31/21 12:33 PMFSH Past Medical History Medical History (Updated 03/29/21 @ 16:53 by Shree Farga MD) Cholecystitis, acute with cholelithiasis Common bile duct (CBD) obstruction Gallstones Lesion of male perineum Lesion of scrotum Multiple abscesses of both legs No known health problems Normocytic anemia Scrotal skin lesion Skin induration Family History Family History Father High cholesterol Heavy smoker ASHD (arteriosclerotic heart disease) Mother Cirrhosis Diabetes mellitus Brother No problems noted. Sister No problems noted. Son No problems noted. Daughter No problems noted. Maternal Uncle ASHD (arteriosclerotic heart disease) Paternal Aunt Rheumatoid arthritis Surgical History Surgical History History of laparoscopic cholecystectomy No pertinent past surgical history Social History Social History Alcohol intake: never Second Hand Smoke Exposure: No Substance Use Type: Marijuana Advance Directives: No Advance Directives Information Provided: Yes service: No Current occupational status: employed Meds Allergies Allergy/AdvReac Type Severity Reaction Status Date / Time No Known Allergies Allergy Verified 03/03/21 15:29 Home Medications Medication Instructions Recorded Confirmed Last Taken Type multivitamin 1 tab PO DAILY 03/29/21 03/29/21 Unknown History Exam Airway Mallampati Class: II TM Dist: >3cm Neck ROM: Full
[2021-03-31] VITALS (10 sets, daily range): BP systolic 123–162; BP diastolic 83–105; PULSE 77–92; RESP 14–20; TEMP 36.4–37.1; O2SAT 94–98; BMI 25.9
--- NOTE | 2021-03-31 12:38 | MHC.SHP ---
Pre-Procedural Eval Section B Chief Complaint: Sebaceous cyst Allergies: Allergies Allergy/AdvReac Type Severity Reaction Status Date / Time No Known Allergies Allergy Verified 03/31/21 12:34 Plan I have reviewed the history and physical and performed a pertinent physical examination on my patient. No changes have occurred unless specified.
[2021-03-31] MEDS: Lactated Ringers 1,000 ML 100 ML IVCONT (12:51)
--- NOTE | 2021-03-31 14:02 | P.BOP_ITS ---
Brief Operative Note Date of Service: 03/31/21 Pre-op diagnosis: multiple cysts, medial thighs, perineum Post-op diagnosis: same (possible hidradenitis) Procedure: exc of multiple cysts, bilateral medial thigh, perineum Surgeon: Shree Fraga MD Anesthesia: GLMA Was an Visual C Developer used for this Procedure?: No Estimated blood loss (mL): 20 Pathology: other (multiple cysts) Condition: stable Disposition: no change
--- NOTE | 2021-03-31 14:03 | P.OP_ITS ---
Operative Note Operative Note Date of Service: 03/31/21 Narrative: Preop diagnosis: Multiple cysts, bilateral medial thighs and perineum Postop diagnosis: the same possible hidradenitis suppurativa Procedure: Excision of multiple cysts, bilateral medial thighs and perineum Surgeon: Shree Fraga MD No licensed occupational therapy assistant The patient is a 50-year-old male who came to the office because of multiple cysts on the left medial thigh, right medial thigh as well as the perineum. He has had this for several months and these would periodically drain but oftentimes would be swollen and become very tender. These had not improved over the past few months so he wanted to proceed with excision. I explained to him the technique of this procedure which will be under anesthesia in view of the number of these cysts along with his anxiety. He was aware of the risks, benefits, and alternatives. He was brought to the operating room and placed supine with both legs abducted in a frogleg fashion to expose the medial thighs. The scrotum was elevated as well with a wide piece of tape to expose the perineum. This entire area was prepped and draped. A surgical time-out was done. The patient received cefazolin 2 g IV preoperatively I made an elliptical incision around the skin on the indurated area on the perineum a little bit to the right side. There was about a 2.5 cm induration. I carried down this incision through the full-thickness of skin and the subcutaneous fat to excise this indurated area circumferentially. There was note of hypergranulation tissue which was also excised as well. Once this entire indurated area was removed, I irrigated the area. I used electrocautery for hemostasis. Once hemostasis was ensured I proceeded to close this incision with multiple nylon 3 0 interrupted sutures in full-thickness fashion. There were 2 similar indurated areas on the left medial thigh, each of which were about 2.5 cm in diameter as well. I proceeded to make an incision elliptically around the 1st area of induration using blade 15. This was carried down through the full-thickness of the skin and subcutaneous fat with electrocautery to excise this entire indurated area. Again there was note of hypergranulation tissue within this indurated area. I used electrocautery for hemostasis and it closed again with nylon 3-0 sutures. There was another indurated area adjacent to this which was excised in the same fashion. There was a 4th area of induration on the right medial thigh also about 2.5 cm in widest diameter.An incision around this was made elliptically using blade 15 and this was carried down with electrocautery through the full-thickness of skin and subcutaneous fat to excise the indurated area. There was note of hypergranulation tissue as well as with the other cysts. I closed this for excision site with nylon 3-0 interrupted full-thickness adan tures. The patient tolerated the procedure well. There were no complications. I infiltrated the excision sites with Marcaine 0.5% for postop analgesia. Gauze dressings were applied. He was extubated without difficulty and was transferred to the recovery room with stable vital signs The presence of hypergranulation tissue is suggestive of hidradenitis suppurativa, although there were no connecting fistulae between these indurated areas.
[2021-03-31] MEDS: oxyCODONE HCl Immed Release 5 MG TABLET 10 MG PO (14:08)
[2021-03-31] MEDS: fentaNYL citrate/PF 100 MCG/2 ML VIAL 50 MCG IVPUSH (14:34)
== END 2021-03-31 15:49 | disposition home or self-care (01) ==
PROVIDERS: PCP Internal Medicine; Visit Provider Surgery
PROC: (CPT 11403; principal; 2021-03-31 13:40)
DX: L72.3 Sebaceous cyst (principal); L92.9 Granulomatous disorder of the skin and subcutaneous tissue, unspecified; Z87.2 Personal history of diseases of the skin and subcutaneous tissue; F12.90 Cannabis use, unspecified, uncomplicated; Z79.899 Other long term (current) drug therapy
CPT/HCPCS: 11403 ×3; 11423; 88304; J0690; J1100; J2250; J2405; J3010

== ENCOUNTER → 2021-04-06 09:56 | Outpatient (BNVA) | payer OTHER, SELFPAY | PROVIDERS: PCP Internal Medicine; Referring Provider Internal Medicine; Visit Provider Surgery | DX: Z48.817 Encounter for surgical aftercare following surgery on the skin and subcutaneous tissue (principal); Z87.2 Personal history of diseases of the skin and subcutaneous tissue | CPT/HCPCS: 99212 ==

== ENCOUNTER → 2021-04-13 16:21 | Outpatient (BNVA) | payer OTHER, SELFPAY | PROVIDERS: PCP Internal Medicine; Referring Provider Internal Medicine; Visit Provider Surgery | DX: L72.0 Epidermal cyst (principal) | CPT/HCPCS: 99212 ==

== ENCOUNTER → 2021-05-15 12:56 | Outpatient (BNVA) | payer OTHER, SELFPAY | PROVIDERS: PCP Internal Medicine; Visit Provider Surgery | DX: Z48.817 Encounter for surgical aftercare following surgery on the skin and subcutaneous tissue (principal); Z87.2 Personal history of diseases of the skin and subcutaneous tissue | CPT/HCPCS: 99212 ==

== ENCOUNTER → 2021-08-08 14:59 | Outpatient (BNVA) | payer OTHER, SELFPAY | PROVIDERS: PCP Internal Medicine; Referring Provider Internal Medicine; Visit Provider Surgery | DX: L73.2 Hidradenitis suppurativa (principal) | CPT/HCPCS: 99212 ==

== ENCOUNTER → 2021-08-21 13:10 | Outpatient (BNVA) | payer OTHER, SELFPAY | PROVIDERS: PCP Internal Medicine; Referring Provider Internal Medicine; Visit Provider Surgery | DX: L73.2 Hidradenitis suppurativa (principal); Z79.899 Other long term (current) drug therapy | CPT/HCPCS: 99212 ==

== ENCOUNTER → 2021-09-06 15:54 | Outpatient (BNVA) | payer OTHER, SELFPAY | PROVIDERS: PCP Internal Medicine; Referring Provider Internal Medicine; Visit Provider Surgery ==

== ENCOUNTER → 2021-10-05 16:25 | Outpatient (BNVA) | payer OTHER, SELFPAY | PROVIDERS: PCP Internal Medicine; Referring Provider Internal Medicine; Visit Provider Surgery | DX: L73.2 Hidradenitis suppurativa (principal) | CPT/HCPCS: 99212 ==

== ENCOUNTER 2021-10-24 11:20 | Day surgery (SDC) | payer OTHER, SELFPAY ==
--- NOTE | 2021-10-23 12:05 | P.CONAN_ITS ---
Documented by User: Kimberly So NP 10/23/21 12:46 HPI - Anesthesia Eval Consult details Narrative: 51yo M for Left Excision of Hidradenitis Suppurativa Groin/Scrotal Area s/p I&D perianal cysts 03/2021 with GA-LMA 4 PMFSH Active Problems Active Problems: All Active Problems (Updated 08/08/21 @ 15:35 by Shree Fraga MD) Epidermal cyst (Acute) Suppurative hidradenitis (Acute) Cerumen impaction (Acute) Multiple abscesses of both legs (Acute) Skin induration (Acute) Lesion of male perineum (Acute) Lesion of scrotum (Acute) Scrotal skin lesion (Acute) Normocytic anemia (Acute) Past Medical History Medical History Cholecystitis, acute with cholelithiasis Common bile duct (CBD) obstruction Epidermal cyst Gallstones Lesion of male perineum Lesion of scrotum Multiple abscesses of both legs No known health problems Normocytic anemia Scrotal skin lesion Skin induration Suppurative hidradenitis Family History Family History Father High cholesterol Heavy smoker ASHD (arteriosclerotic heart disease) Mother Cirrhosis Diabetes mellitus Brother No problems noted. Sister No problems noted. Son No problems noted. Daughter No problems noted. Maternal Uncle ASHD (arteriosclerotic heart disease) Paternal Aunt Rheumatoid arthritis Surgical History Surgical History History of ERCP History of laparoscopic cholecystectomy Hx of adenoidectomy Hx of inguinal hernia repair No pertinent past surgical history Social History Social History Alcohol intake: never Patient Tobacco Use Status: Never used Tobacco Second Hand Smoke Exposure: No Use of substances other than those prescribed or required for medical reasons: Yes Substance Use Type: Marijuana Substance Use Frequency: Daily Are you DNR?: No Advance Directives: No Advance Directives Information Provided: Yes service: No Current occupational status: employed Meds Allergies Allergy/AdvReac Type Severity Reaction Status Date / Time No Known Allergies Allergy Verified 09/06/21 16:00 Home Medications Medication Instructions Recorded Confirmed Last Taken Type multivitamin 1 tab PO DAILY 03/29/21 10/05/21 Unknown History Exam Exam Date and Time: October 23, 2021 1205 Pertinent Lab Results Pertinent Lab Results: Laboratory Tests 02/22/21 02/22/21 10:27 10:27 WBC 6.7 Hgb 13.0 L D Hct 41.8 L D Plt Count 310 Sodium 138 Potassium 4.3 Chloride 104 Carbon Dioxide 26 BUN 16 Creatinine 1.04 Assessment and Plan Assessment Anesthesia Assessment: Chart Reviewed Documented by User: Suleiman Saucedo MD 10/24/21 13:01 [facility] Past Medical History Medical History Cholecystitis, acute with cholelithiasis Common bile duct (CBD) obstruction Epidermal cyst Gallstones Lesion of male perineum Lesion of scrotum Multiple abscesses of both legs No known health problems Normocytic anemia Scrotal skin lesion Skin induration Suppurative hidradenitis Family History Family History Father High cholesterol Heavy smoker ASHD (arteriosclerotic heart disease) Mother Cirrhosis Diabetes mellitus Brother No problems noted. Sister No problems noted. Son No problems noted. Daughter No problems noted. Maternal Uncle ASHD (arteriosclerotic heart disease) Paternal Aunt Rheumatoid arthritis Family history of problems with anesthesia: No Surgical History Surgical History History of ERCP History of laparoscopic cholecystectomy Hx of adenoidectomy Hx of inguinal hernia repair No pertinent past surgical history History of Problems with Anesthesia: No Social History Social History Alcohol intake: never Patient Tobacco Use Status: Never used Tobacco Second Hand Smoke Exposure: No Use of substances other than those prescribed or required for medical reasons: Yes Substance Use Type: Marijuana Substance Use Frequency: Daily Are you DNR?: No Advance Directives: No Advance Directives Information Provided: Yes service: No Current occupational status: employed Meds Allergies Allergy/AdvReac Type Severity Reaction Status Date / Time No Known Allergies Allergy Verified 09/06/21 16:00 Home Medications Medication Instructions Recorded Confirmed Last Taken Type multivitamin 1 tab PO DAILY 03/29/21 10/05/21 Unknown History Exam Airway Mallampati Class: II TM Dist: >3cm Neck ROM: Full Loose/Missing/Broken Teeth: Yes (3 remaining teeth, 2 broken) Assessment and Plan Assessment Anesthesia Assessment: Anesthesia Plan Discussed Final Anesthetic Review Family History of Problems with Anesthesia: No History of Problems with Anesthesia: No NPO: Yes ASA Class: II Final Preanesthetic Review: No Changes in Pt Med Stat, Meds/Allgs Chart Reviewed, Consent Obtained/Reviewed and Anes Risks/Benef Reviewed Patient Risk: Low Procedure Risk: Low Anesthetic Plan Anesthetic Plan: GA Disposition: Standard PACU
[2021-10-24] VITALS (8 sets, daily range): BP systolic 120–156; BP diastolic 85–103; PULSE 72–86; RESP 12–16; TEMP 36.6–37.7; O2SAT 95–99; BMI 25.9
[2021-10-24] MEDS: Lactated Ringers 1,000 ML 100 ML IVCONT (12:40)
--- NOTE | 2021-10-24 12:40 | MHC.SHP ---
Pre-Procedural Eval Section A Date of Service: 10/24/21 The patient is an INPATIENT: No Changes since office visit: No Cold of Flu in the past 2 weeks, No New Medical Problems, No Changes in Medication and No Patient answered all questions The History & Physical has been completed within 30 days and I have reviewed it.: Yes Section B Chief Complaint: Suppurative hidradenitis Allergies: Allergies Allergy/AdvReac Type Severity Reaction Status Date / Time No Known Allergies Allergy Verified 09/06/21 16:00 Plan I have reviewed the history and physical and performed a pertinent physical examination on my patient. No changes have occurred unless specified.
--- NOTE | 2021-10-24 13:48 | P.OP_ITS ---
Operative Note Operative Note Date of Service: 10/24/21 Narrative: Preop diagnosis: Hidradenitis suppurativa, left groin and scrotum Postop diagnosis: Hidradenitis suppurativa, left groin and scrotum Procedure: Excision of hidradenitis suppurativa, left groin and scrotum Surgeon: Shree Fraga MD 1st Armature Winder Repair Helper: KIM Regalado The patient is a 51-year-old male, with note of recurrent drainage, induration and swelling of the skin on an area along the left groin scrotum. This was consistent with hidradenitis suppurativa. He understood the technique of excision under anesthesia. He was aware of the risks, benefits, and alternatives He was brought to the operating room placed on the table in a frogleg position. The perineum, groin and scrotal areas were prepped and draped in the usual sterile fashion. A surgical time-out was done. The patient received cefazolin 2 g IV preoperatively . There was note of an indurated area on the left scrotal skin laterally extending towards the left groin with poorly defined margins. There was note of some sinuses on the overlying skin consistent with hidradenitis suppurativa. I marked the planned line of incision. I first opened up 1 of the sinuses hemostat by doing so I was able to define the entire cyst area pre lifting the and subcutaneous steel layer. I unroof the entire diseased area skin and subcutaneous tissue with sharp dissection using the blade 15 and electrocautery. I connected all fistulous tracts moves all disease skin and subcutaneous tissue which were in 1 confluent area.The entire area was about 30 cm long and 7 cm at its widest and triangular in shape. There was note of large amounts of hypergranulation tissue underneath the excised subcutaneous layer. I removed all these hyper granulation tissue with blunt dissection as well as electrocautery down to healthy-looking deep subcutaneous layer . I exposed all fistulous tracts. Once all of these hypergranulation tissue and diseased subcutaneous layer were removed, I cauterized all oozing areas for hemostasis. Once hemostasis was ensured, proceeded to close the incision by reapposing skin and subcutaneous layers together with nylon 3-0 interrupted sutures. We were able to achieve this without tension. The closed area appeared stellate in shape. I then applied thick gauze were kept in place with a mesh underwear The area was infiltrated with Marcaine 0.5% for postop analgesia and the procedure was completed The patient tolerated the procedure well. There were no complication noted. Initial and final counts ofsponges and instruments were correct. Estimated blood loss was about 30 cc. The patient was extubated without difficulty and transferred to the recovery room with stable vital signs.
== END 2021-10-24 15:56 | disposition home or self-care (01) ==
PROVIDERS: PCP Internal Medicine; Visit Provider Surgery
PROC: (CPT 11462; principal; 2021-10-24 12:50)
DX: L73.2 Hidradenitis suppurativa (principal); N50.89 Other specified disorders of the male genital organs; N49.2 Inflammatory disorders of scrotum; D64.9 Anemia, unspecified; F12.90 Cannabis use, unspecified, uncomplicated; Z79.899 Other long term (current) drug therapy; Z90.49 Acquired absence of other specified parts of digestive tract
CPT/HCPCS: 11462; 88305; J0690; J1100; J1170; J1885; J2250; J2405; J3010

== ENCOUNTER → 2021-11-08 10:24 | Outpatient (BNVA) | payer OTHER, SELFPAY | PROVIDERS: PCP Internal Medicine; Referring Provider Internal Medicine; Visit Provider Surgery | DX: Z48.815 Encounter for surgical aftercare following surgery on the digestive system (principal); Z87.19 Personal history of other diseases of the digestive system | CPT/HCPCS: 99212 ==

== ENCOUNTER → 2021-11-15 13:20 | Outpatient (BNVA) | payer OTHER, SELFPAY | PROVIDERS: PCP Internal Medicine; Referring Provider Internal Medicine; Visit Provider Surgery | DX: Z48.817 Encounter for surgical aftercare following surgery on the skin and subcutaneous tissue (principal); Z87.2 Personal history of diseases of the skin and subcutaneous tissue | CPT/HCPCS: 99212 ==

== ENCOUNTER → 2021-11-29 09:46 | Outpatient (BNVA) | payer OTHER, SELFPAY | PROVIDERS: PCP Internal Medicine; Referring Provider Internal Medicine; Visit Provider Surgery | DX: L73.2 Hidradenitis suppurativa (principal) | CPT/HCPCS: 99212 ==

== ENCOUNTER → 2022-01-17 16:18 | Outpatient (BNVA) | payer OTHER, SELFPAY | PROVIDERS: PCP Internal Medicine; Referring Provider Internal Medicine; Visit Provider Surgery | DX: L72.0 Epidermal cyst (principal); L73.2 Hidradenitis suppurativa | CPT/HCPCS: 99212 ==

== ENCOUNTER 2022-02-21 15:36 | Outpatient (REF) | payer OTHER, SELFPAY ==
--- NOTE | ~2022-02-21 | XR_ITS ---
EXAMINATION: XR CHEST CLINICAL INFORMATION: Cough. COMPARISON: 09/18/2020 chest radiographs. TECHNIQUE: 2 views of the chest were obtained. FINDINGS: No significant abnormality is noted involving the heart, lungs, mediastinum, bony thorax or soft tissues. XR/XR chest 2V IMPRESSION: No acute cardiopulmonary process.
[2022-02-22 15:22] LABS: Influenza A PCR NEGATIVE (Negative); Influenza B PCR NEGATIVE (Negative); Resp Syncy Virus RNA Qual PCR NEGATIVE (Negative); SARS COV2 PCR INHOUSE POSITIVE (Negative)
== END 2022-02-21 15:37 | disposition home or self-care (01) ==
LOC: HO.HMGCX 15:36
PROVIDERS: Visit Provider Nurse Practitioner Family
DX: Z20.822 Contact with and (suspected) exposure to COVID-19 (principal); R05.8 Other specified cough
CPT/HCPCS: 0241U; 71046

== ENCOUNTER → 2022-06-12 15:12 | Outpatient (BNVA) | payer OTHER, SELFPAY | PROVIDERS: PCP Internal Medicine; Visit Provider Surgery | DX: L73.2 Hidradenitis suppurativa (principal); Z79.899 Other long term (current) drug therapy | CPT/HCPCS: 99212 ==

== ENCOUNTER → 2022-07-05 09:24 | Outpatient (BNVA) | payer OTHER, SELFPAY | PROVIDERS: PCP Internal Medicine; Visit Provider Surgery | DX: L73.2 Hidradenitis suppurativa (principal) | CPT/HCPCS: 99212 ==

== ENCOUNTER → 2022-07-31 15:02 | Outpatient (BNVA) | payer OTHER, SELFPAY | PROVIDERS: PCP Internal Medicine; Visit Provider Surgery | DX: L73.2 Hidradenitis suppurativa (principal) | CPT/HCPCS: 99212 ==

== ENCOUNTER 2022-08-16 08:41 | Outpatient (REF) | payer OTHER, SELFPAY ==
[2022-08-16 10:57] LABS: MANUAL DIFF FLAG NO
[2022-08-16 11:11] LABS: Basophils Absolute Auto 0.1 X10*3/uL (0.0-0.2); Basophils Percent Auto 0.7 % (0-2); Eosinophils Absolute Auto 0.3 X10*3/uL (0.0-0.4); Eosinophils Percent Auto 4.3 % (0-4); Hematocrit 42.5 % (42.0-52.0); Hemoglobin 13.9 g/dl (14.0-18.0); Imm Gran Abs Auto 0.09 X10*3/uL (0.00-0.03); Imm Gran Pct Auto 1.2 % (0.0-0.4); Lymphocytes Absolute Auto 2.2 X10*3/uL (1.2-4.9); Lymphocytes Percent Auto 29.7 % (20-40); Mean Corpuscular HGB Conc 32.7 g/dl (31.0-36.0); Mean Corpuscular Hemoglobin 28.3 pg (27.0-33.0); Mean Corpuscular Volume 86.6 fL (80.0-98.0); Mean Platelet Volume 10.7 fL (9.4-12.4); Monocytes Absolute Auto 0.5 X10*3/uL (0.1-1.2); Monocytes Percent Auto 6.2 % (2-11); Neutrophils Absolute Auto 4.3 x10*3/uL (2.0-8.3); Neutrophils Percent Auto 57.9 % (45-73); Platelet Count 235 X10*3/uL (160-400); Red Blood Count 4.91 X10*6/uL (4.60-5.80); Red Cell Distribution Width 13.7 % (11.0-16.0); White Blood Count 7.4 X10*3/uL (4.8-10.8)
[2022-08-16 11:46] LABS: Alanine Aminotransferase 12 U/L (0-40); Albumin Level 4.2 g/dL (3.5-5.0); Alkaline Phosphatase 84 U/L (39-117); Anion Gap 13 (12-20); Aspartate Amino Transferase 15 U/L (5-37); Bilirubin Total 0.3 mg/dL (0.0-1.0); Blood Urea Nitrogen 19 mg/dL (9-16); Calcium 9.1 mg/dL (8.4-10.2); Carbon Dioxide 26 mmol/L (22-29); Chloride 104 mmol/L (96-108); Cholesterol 170 mg/dL; Estimated Glomerular Filt Rate > 60; Glucose Fasting 100 mg/dL (60-99); HDL Cholesterol 37 mg/dL; LDL Cholesterol Calculated 107 mg/dl; Potassium 4.3 mmol/L (3.3-5.1); Sodium 139 mmol/L (135-145); Total Protein 7.7 g/dL (6.5-8.0); Triglycerides 131 mg/dL
== END 2022-08-16 08:42 | disposition home or self-care (01) ==
LOC: HO.HMGCLDS 08:41
PROVIDERS: PCP Internal Medicine; Visit Provider Internal Medicine
DX: I10 Essential (primary) hypertension (principal); D64.9 Anemia, unspecified; L73.2 Hidradenitis suppurativa; N52.9 Male erectile dysfunction, unspecified
CPT/HCPCS: 36415; 80053; 80061; 85025

== ENCOUNTER 2022-09-10 09:31 | Outpatient (REF) | payer OTHER, SELFPAY ==
--- NOTE | ~2022-09-10 | US_ITS ---
EXAMINATION: US RETROPERITONEAL LIMITED (AORTA) CLINICAL INFORMATION: Family history of ischemic heart disease and other diseases of the circulatory system. COMPARISON: None TECHNIQUE: Alonso-scale, color Doppler and spectral Doppler evaluation of the abdominal aorta. FINDINGS: The aorta is normal in caliber. The measurements of the aorta in maximum AP and transverse dimensions respectively are as follows: Proximal: 2.9 x 3.2 cm. Mid: 2.5 x 3.0 cm. Distal: 2.1 x 2.5 cm. PSV: 79.1 cm/s. The measurements of the common iliac arteries in maximum AP and TRV dimensions are as follows: Right Common Iliac Artery: 1.6 x 1.2 cm. Left Common Iliac Artery: 1.5 x 1.5 cm. US/US abdominal aortic aneurysm IMPRESSION: Negative for abdominal aortic aneurysm.
== END 2022-09-10 09:32 | disposition home or self-care (01) ==
LOC: HO.HMGCX 09:31
PROVIDERS: PCP Internal Medicine; Visit Provider Internal Medicine
DX: Z13.6 Encounter for screening for cardiovascular disorders (principal); Z82.49 Family history of ischemic heart disease and other diseases of the circulatory system
CPT/HCPCS: 76706

== ENCOUNTER → 2022-09-24 15:01 | Outpatient (BNVA) | payer OTHER, SELFPAY | PROVIDERS: PCP Internal Medicine; Visit Provider Nurse Practitioner Family | DX: Z12.11 Encounter for screening for malignant neoplasm of colon (principal) | CPT/HCPCS: 99202 ==

== ENCOUNTER 2022-12-12 13:25 | Outpatient (REF) | payer OTHER, SELFPAY | END 2022-12-12 13:26 | disposition home or self-care (01) | LOC: HO.SH 13:25 | PROVIDERS: Visit Provider Internal Medicine | DX: H90.3 Sensorineural hearing loss, bilateral (principal) | CPT/HCPCS: 92557; 92567 ==

== ENCOUNTER 2023-01-30 10:00 | Outpatient (REF) | payer OTHER, SELFPAY ==
[2023-01-30 11:39] LABS: MANUAL DIFF FLAG NO
[2023-01-30 11:56] LABS: Basophils Absolute Auto 0.1 X10*3/uL (0.0-0.2); Basophils Percent Auto 0.6 % (0-2); Eosinophils Absolute Auto 0.3 X10*3/uL (0.0-0.4); Eosinophils Percent Auto 3.4 % (0-4); Hematocrit 41.6 % (42.0-52.0); Hemoglobin 13.4 g/dl (14.0-18.0); Imm Gran Abs Auto 0.09 X10*3/uL (0.00-0.03); Imm Gran Pct Auto 1.1 % (0.0-0.4); Lymphocytes Absolute Auto 2.6 X10*3/uL (1.2-4.9); Lymphocytes Percent Auto 32.4 % (20-40); Mean Corpuscular HGB Conc 32.2 g/dl (31.0-36.0); Mean Corpuscular Hemoglobin 28.3 pg (27.0-33.0); Mean Corpuscular Volume 87.9 fL (80.0-98.0); Mean Platelet Volume 10.4 fL (9.4-12.4); Monocytes Absolute Auto 0.5 X10*3/uL (0.1-1.2); Monocytes Percent Auto 5.7 % (2-11); Neutrophils Absolute Auto 4.6 x10*3/uL (2.0-8.3); Neutrophils Percent Auto 56.8 % (45-73); Platelet Count 283 X10*3/uL (160-400); Red Blood Count 4.73 X10*6/uL (4.60-5.80); Red Cell Distribution Width 13.3 % (11.0-16.0)
== END 2023-01-30 10:01 | disposition home or self-care (01) ==
LOC: HO.HMGCLDS 10:00
PROVIDERS: PCP Internal Medicine; Visit Provider Internal Medicine
DX: D64.9 Anemia, unspecified (principal); L73.2 Hidradenitis suppurativa; I10 Essential (primary) hypertension
CPT/HCPCS: 36415; 80048; 80061; 84450; 84460; 85025

== ENCOUNTER 2023-02-21 10:55 | Day surgery (SDC) | payer OTHER, SELFPAY ==
--- NOTE | 2023-02-20 10:41 | P.CONAN_ITS ---
HPI - Anesthesia Eval Consult details Narrative: 52yo M for Colonoscopy [facility] Active Problems Active Problems: All Active Problems (Updated 01/17/23 @ 13:26 by Marlyn Borja MD) Family history of abdominal aortic aneurysm (Acute) Essential hypertension (Acute) Erectile dysfunction (Acute) Hidradenitis suppurativa (Acute) Epidermal cyst (Acute) Normocytic anemia (Acute) Past Medical History Medical History (Updated 01/17/23 @ 13:26 by Marlyn Borja MD) Cholecystitis, acute with cholelithiasis Common bile duct (CBD) obstruction Epidermal cyst Erectile dysfunction Essential hypertension Family history of abdominal aortic aneurysm Gallstones Hidradenitis suppurativa Impacted cerumen, bilateral Normocytic anemia Family History Family History Father High cholesterol Heavy smoker ASHD (arteriosclerotic heart disease) Mother Cirrhosis Diabetes mellitus Brother Substance use disorder Mental health disorder Sister No problems noted. Son No problems noted. Daughter No problems noted. Maternal Uncle ASHD (arteriosclerotic heart disease) Paternal Aunt Rheumatoid arthritis Family history of problems with anesthesia: No Surgical History Surgical History History of ERCP History of laparoscopic cholecystectomy Hx of adenoidectomy Hx of inguinal hernia repair No pertinent past surgical history History of Problems with Anesthesia: No Social History Social History Housing: House Alcohol intake: never Patient Tobacco Use Status: Never used Tobacco e-Cigarette/Vaping Use: Never Used Second Hand Smoke Exposure: No Substance Use Type: Marijuana service: No Current occupational status: unemployed Cognitive needs: No Hearing needs: No Vision needs: Yes Meds Allergies Allergy/AdvReac Type Severity Reaction Status Date / Time No Known Allergies Allergy Verified 01/17/23 11:28 Home Medications Medication Instructions Recorded Confirmed Last Taken Type clindamycin phosphate 1 % topical topical BID 01/17/23 01/17/23 Unknown History gel cyclobenzaprine 10 mg tablet 10 mg PO BID 01/17/23 Unknown History doxycycline monohydrate 100 mg 100 mg PO BID 01/17/23 01/17/23 Unknown History capsule Exam Exam Date and Time: February 20, 2023 1041 Pertinent Lab Results Pertinent Lab Results: Laboratory Tests 08/16/22 01/30/23 08:50 10:05 WBC 8.0 Hgb 13.4 L Hct 41.6 L Plt Count 283 Sodium 139 Potassium 4.3 Chloride 104 Carbon Dioxide 26 BUN 19 H Creatinine 1.16 Narrative Narrative: US abdominal aortic aneurysm 09/2022 IMPRESSION: Negative for abdominal aortic aneurysm. Assessment and Plan Assessment Anesthesia Assessment: Chart Reviewed Final Anesthetic Review Family History of Problems with Anesthesia: No History of Problems with Anesthesia: No
[2023-02-21 10:57] VITALS: BMI 25.4
[2023-02-21] MEDS: Lactated Ringers 1,000 ML 100 ML IVCONT (11:25)
[2023-02-21 11:36] VITALS: BP 119/88; PULSE 79; RESP 18; TEMP 36.7; O2SAT 97
--- NOTE | 2023-02-21 12:06 | HO.ANESPROP2 ---
HPI - Anesthesia Eval Consult details Narrative: screening [facility] Active Problems Active Problems: All Active Problems (Updated 01/17/23 @ 13:26 by Marlyn Borja MD) Family history of abdominal aortic aneurysm (Acute) Essential hypertension (Acute) Erectile dysfunction (Acute) Hidradenitis suppurativa (Acute) Epidermal cyst (Acute) Normocytic anemia (Acute) Past Medical History Medical History (Updated 01/17/23 @ 13:26 by Marlyn Borja MD) Cholecystitis, acute with cholelithiasis Common bile duct (CBD) obstruction Epidermal cyst Erectile dysfunction Essential hypertension Family history of abdominal aortic aneurysm Gallstones Hidradenitis suppurativa Impacted cerumen, bilateral Normocytic anemia Family History Family History Father High cholesterol Heavy smoker ASHD (arteriosclerotic heart disease) Mother Cirrhosis Diabetes mellitus Brother Substance use disorder Mental health disorder Sister No problems noted. Son No problems noted. Daughter No problems noted. Maternal Uncle ASHD (arteriosclerotic heart disease) Paternal Aunt Rheumatoid arthritis Family history of problems with anesthesia: No Surgical History Surgical History History of ERCP History of laparoscopic cholecystectomy Hx of adenoidectomy Hx of inguinal hernia repair No pertinent past surgical history History of Problems with Anesthesia: No Social History Social History Housing: House Alcohol intake: never Patient Tobacco Use Status: Never used Tobacco e-Cigarette/Vaping Use: Never Used Second Hand Smoke Exposure: No Substance Use Type: Marijuana Substance Use Frequency: Occasionally Are you DNR?: No Advance Directives: No Advance Directives Information Provided: Yes Nutrition Risks: No Nutritional Risk service: No Current occupational status: unemployed Cognitive needs: No Hearing needs: No Vision needs: Yes Meds Allergies Allergy/AdvReac Type Severity Reaction Status Date / Time No Known Allergies Allergy Verified 01/17/23 11:28 Active Medications: Current Medications Lactated Ringer's (Lr) 1,000 mls @ 100 mls/hr IVCONT .Q10H SARAH Last Admin: 02/21/23 11:25 Dose: 100 mls/hr Home Medications Medication Instructions Recorded Confirmed Last Taken Type clindamycin phosphate 1 % topical topical BID 01/17/23 01/17/23 Unknown History gel cyclobenzaprine 10 mg tablet 10 mg PO BID 01/17/23 Unknown History doxycycline monohydrate 100 mg 100 mg PO BID 01/17/23 01/17/23 Unknown History capsule Exam Exam Date and Time: February 21, 2023 1206 Height,Weight and Vital Signs: Height 5 ft 8.5 in Weight 77.111 kg Last Vital Signs Temp 98.1 F 02/21/23 11:36 Pulse 79 02/21/23 11:36 Resp 18 02/21/23 11:36 BP 119/88 02/21/23 11:36 Pulse Ox 97 02/21/23 11:36 O2 Del Method Room Air 02/21/23 11:36 Airway Mallampati Class: I TM Dist: >3cm Neck ROM: Full Denture: Upper Heart: rr Lungs: cta Assessment and Plan Assessment Anesthesia Assessment: Anesthesia Plan Discussed and Chart Reviewed Final Anesthetic Review Family History of Problems with Anesthesia: No History of Problems with Anesthesia: No NPO: Yes ASA Class: III Final Preanesthetic Review: No Changes in Pt Med Stat, Meds/Allgs Chart Reviewed, Consent Obtained/Reviewed and Anes Risks/Benef Reviewed Patient Risk: Low Procedure Risk: Low Anesthetic Plan Anesthetic Plan: MAC: Disposition: Standard PACU
--- NOTE | 2023-02-21 12:18 | PC.NURSE ---
Dr Chamberlain visualized at bedside patients area of hidradenitis on thigh & rectum - ok'ed to proceed with colonoscopy.
--- NOTE | 2023-02-21 12:23 | MHC.SHP ---
Pre-Procedural Eval Section A Date of Service: 02/21/23 Section B Chief Complaint: Encounter for screening for malignant neoplasm of Relevant Family History (Specify if Yes): No Relevant Social History: Other (specify) (cannabis) Present Medications: see Short Stay Collaborative assessment Medical History: Significant History (Cholecystitis, acute with cholelithiasis Common bile duct (CBD) obstruction Epidermal cyst Erectile dysfunction Essential hypertension Family history of abdominal aortic aneurysm Gallstones Hidradenitis suppurativa Impacted cerumen, bilateral Normocytic anemia) History of Previous Operations: Relevant previous surgery/procedure and date(s) (History of ERCP History of laparoscopic cholecystectomy Hx of adenoidectomy Hx of inguinal hernia repair) Allergies: Allergies Allergy/AdvReac Type Severity Reaction Status Date / Time No Known Allergies Allergy Verified 01/17/23 11:28 Review of Systems Sugical H&P ROS: Negative: Constitution, Cardiovascular, Respiratory, Neurological, Psychiatric, Hem-Onc, Allergic/Immunologic, Gastrointestinal, Genitourinary, Musculoskeletal, Integumentary, Endocrine and Eyes/Ears/Nose/Throat Exam Surgical H&P Exam: Normal: HEENT, Normal: Heart, Normal: Lungs, Normal: Extremities, Normal: Abdomen and Normal: Neurological and Significant Findings: Skin (hidarenitis noted ) Plan Diagnosis/Plan: Unchanged I have reviewed the history and physical and performed a pertinent physical examination on my patient. No changes have occurred unless specified. Time Spent With Patient Time: Total time managing care of this patient today ____ minutes.
--- NOTE | 2023-02-21 12:25 | W.PM.OPN ---
Operative Note Operative Note Date of Service: 02/21/23 Narrative: Operative Information Procedure Description: Colonoscopy Indication: screening Anesthesia: MAC COLONOSCOPY Instrument: Olympus variable stiffness pediatric scope 190L Colonoscopy Monitoring: Vital signs and clinical assessment, continuous EKG monitoring, Pulse oximetry, Carbon Dioxide monitoring and blood pressure monitoring were done throughout the procedure. Colon withdrawal time was 10 minutes. Procedure: The patient was placed in the left lateral decubitis position and pre-procedure medications were administered. After a digital rectal examination of the ano-rectum, the video colonoscope was inserted into the rectum and advanced through the colon to the cecum/TI. The colonoscope was slowly withdrawn in a retrograde panoramic fashion and the colon mucosa was carefully examined including a retroflexed view of the rectum. Boggy induration and chronic skin changes, some infected areas consistent with hx of hidradenitis around anal area Findings and interventions are described below. Procedure Difficulty: easy Findings: Terminal Ileum-normal Cecum:normal Ascending Colon: normal Transverse Colon -normal Descending Colon:normal Sigmoid Colon: moderate diverticulosis noted, 8-10 mm sessile polyp removed with cold snare Rectum: Retroflexion with small internal hemorrhoids, grade I Anorectum - normal Colon preparation: [place] Bowel Preparation Scale Right colon; 2 Transverse colon: 2 Left colon; 2 (0 = Unprepared colon segment with mucosa not seen due to solid stool that cannot be cleared. 1 = Portion of mucosa of the colon segment seen, but other areas of the colon segment not well seen due to staining, residual stool and/or opaque liquid. 2 = Minor amount of residual staining, small fragments of stool and/or opaque liquid, but mucosa of colon segment seen well. 3 = Entire mucosa of colon segment seen well with no residual staining, small fragments of stool or opaque liquid) Impression and Post Procedure Diagnosis: polyp internal hemorrhoids diverticular disease Plan: High fiber diet leaflet Avoid straining at stool, epsom salts and sitz bath, anusol supps or cream Repeat Colonoscopy in 5-7 years if adenomatous polyp, 10 years if hyperplastic or earlier if clinically indicated Refer back to Dr Fraga for his skin issues and dermatology, meantime will send him a 3 month course of doxy 100 mg, with warning on SE incl esophagitis, nausea, photosensitivity Above findings were reviewed with the patient and relevant handouts were provided if indicated.
[2023-02-21 13:19] VITALS: BP 94/70; PULSE 74; RESP 16; TEMP 36.4; O2SAT 95
[2023-02-21 13:34] VITALS: BP 123/85; PULSE 63; RESP 16; TEMP 36.6; O2SAT 95
== END 2023-02-21 13:58 | disposition home or self-care (01) ==
PROVIDERS: PCP Internal Medicine; Visit Provider Internal Medicine Gastroenterology
PROC: 0DJD8ZZ Inspection of Lower Intestinal Tract, Via Natural or Artificial Opening Endoscopic (ICD-10-PCS; CPT 45378; principal; 2023-02-21 12:20)
DX: Z12.11 Encounter for screening for malignant neoplasm of colon (principal); D12.5 Benign neoplasm of sigmoid colon; K57.30 Diverticulosis of large intestine without perforation or abscess without bleeding; K64.0 First degree hemorrhoids; L73.2 Hidradenitis suppurativa; K29.80 Duodenitis without bleeding; D64.9 Anemia, unspecified; I10 Essential (primary) hypertension; Z90.49 Acquired absence of other specified parts of digestive tract; Z79.899 Other long term (current) drug therapy
CPT/HCPCS: 45385; 88305; J3010

== ENCOUNTER → 2023-03-15 14:48 | Outpatient (BNVA) | payer OTHER, SELFPAY | PROVIDERS: PCP Internal Medicine; Visit Provider Nurse Practitioner Family | DX: L73.2 Hidradenitis suppurativa (principal); Z98.890 Other specified postprocedural states | CPT/HCPCS: 99212 ==

== ENCOUNTER 2023-04-30 13:26 | Outpatient (REF) | payer OTHER, SELFPAY ==
[2023-04-30 14:26] LABS: Appearance Urine Clear; Color Urine Yellow; Glucose Urine UA Negative (Negative); Leukocyte Esterase Urine Negative (Negative); Nitrite Urine Negative (Negative); UMIC TRIGGER UACC YES; Urine Blood Moderate (2+) (Negative); Urine Ketones Negative (Negative); Urine Protein Negative (Neg-Trace)
[2023-04-30 14:32] LABS: Bacteria Urine None Seen (None Seen); Hyaline Casts Urine 0-2 /LPF (0-2); Squamous Epithelial Cell Urine 0-2 /HPF (0-2); WBC Urine 0-5 /HPF (0-5)
== END 2023-04-30 13:27 | disposition home or self-care (01) ==
LOC: HO.HMGCLDS 13:26
PROVIDERS: PCP Internal Medicine; Visit Provider Internal Medicine
DX: R31.9 Hematuria, unspecified (principal)
CPT/HCPCS: 81001

== ENCOUNTER 2023-07-25 13:03 | Outpatient (AMB) | payer OTHER, SELFPAY ==
--- NOTE | 2023-07-25 13:07 | MHC.PC.OV ---
Vital Signs 07/25/23 13:14 Height 5 ft 8.5 in Weight 177 lb BMI 26.5 BP 130/74 Blood Pressure Location Rt brachial Position Sitting Pulse 77 Pulse Source Pulse Oximeter Pulse Oximetry (%) 97 Oxygen Delivery Method Room Air Intake Visit Reasons: Annual PE Intake Note: Pt is here today for his PE Allergies No Known Allergies Allergy (Verified 07/25/23 13:29) Medication List - Last Reconciled 07/25/23 by Marlyn Borja MD clindamycin phosphate 1% topical BID cyclobenzaprine 10 mg PO BID ibuprofen 600 mg PO Q6H PRN lisinopril 10 mg PO DAILY Tobacco use date assessed: 07/25/23 Dental Screening Dental Screen Date: 07/25/23 Did you have a dental visit in the last 12 months?: Yes Did you have a dental problem in the last 6 months where you did not have access to dental care?: No Was dental information given to patient?: Patient has dentist HPI Annual PE HPI Details 52-year-old male presents today for his physical exam. He had a screening colonoscopy done earlier this year , which showed presence of a tubular adenoma polyp which was removed, repeat colonoscopy to be done again in 5 years. He takes lisinopril for his hypertension , with blood pressure within normal limits. Complains of of firm slightly tender mass on inner aspect of right buttock which has been present now for several months and seems to be increasing in size. No active drainage, afebrile. Has had a similar lesion removed from left inguinal area in the past by Dr. Fraga with no recurrences reported. [facility] Medical History (Updated 07/26/23 @ 00:02 by Marlyn Borja MD) Impacted cerumen, bilateral Family history of abdominal aortic aneurysm Essential hypertension Erectile dysfunction Hidradenitis suppurativa Epidermal cyst Cholecystitis, acute with cholelithiasis Normocytic anemia Common bile duct (CBD) obstruction Gallstones Surgical History (Updated 07/25/23 @ 23:59 by Marlyn Borja MD) Hx of colonoscopy History of ERCP Hx of adenoidectomy Hx of inguinal hernia repair History of laparoscopic cholecystectomy Family History Father High cholesterol Heavy smoker ASHD (arteriosclerotic heart disease) Mother Cirrhosis Diabetes mellitus Brother Substance use disorder Mental health disorder Sister No problems noted. Son No problems noted. Daughter No problems noted. Maternal Uncle ASHD (arteriosclerotic heart disease) Paternal Aunt Rheumatoid arthritis Social History Housing: House Alcohol intake: never Patient Tobacco Use Status: Current everyday Tobacco user e-Cigarette/Vaping Use: Never Used Second Hand Smoke Exposure: No Substance Use Type: Marijuana service: No Current occupational status: unemployed Cognitive needs: No Hearing needs: No Vision needs: Yes Questionnaire PHQ-9 Over the last 2 weeks, how often have you been bothered by any of the following problems? 1. Little interest or pleasure in doing things: not at all 2. Feeling down, depressed, or hopeless: not at all 3. Trouble falling or staying asleep, or sleeping too much: not at all 4. Feeling tired or having little energy: not at all 5. Poor appetite or overeating: not at all 6. Feeling bad about yourself - or that you are a failure or have let yourself or your family down: not at all 7. Trouble concentrating on things, such as reading the newspaper or watching television: not at all 8. Moving or speaking so slowly that other people could have noticed. Or the opposite - being so fidgety or restless that you have been moving around a lot more than usual: not at all 9. Thoughts that you would be better off or of hurting yourself in some way: not at all Total score: 0 Depression Screening Interpretation: Negative 36036 - PHQ-9 Billing: Yes Source: Developed by Drs. Antoine Owens, Aishwarya Hickey, Rick Lovell and colleagues, with an educational gustabo from Andre Phillipe. Thrive Questionnaire Date Thrive assessed: 07/25/23 I am a: Patient What is your living situation today?: I have a steady place to live Within the past 12 months, did the food you bought not last and you didn't have the money to get more?: Sometimes True Within the past 12 months, did you worry whether your food would run out before you got money to buy more?: Sometimes True Do you have trouble paying for medicines?: No Do you have trouble getting transportation to medical appointments?: No Do you have trouble paying your heating and electricity bill?: Yes Do you have trouble taking care of your child, family member or friend?: No Do you have trouble with day-to-day activities such as bathing, preparing meals, shopping, managing finances, etc.?: No Are you currently unemployed and looking for a job?: Yes Are you interested in more education?: No AUDIT C Alcohol Use Questionnaire (AUDIT-C) 1. How often do you have a drink containing alcohol?: Monthly or less 2. How many drinks containing alcohol do you have on a typical day when you are drinking?: 1 or 2 Total Score: 1 ELLA-7 AMB Questionnaire ELLA-7 Date ELLA - 7 assessed: 07/25/23 Feeling nervous, anxious, or on edge: 0 = Not at all Not being able to stop or control worryin = Not at all Worrying too much about different things: 0 = Not at all Trouble relaxin = Not at all Being so restless that it is hard to sit still: 0 = Not at all Becoming easily annoyed or irritable: 0 = Not at all Feeling afraid as if something awful might happen: 0 = Not at all Total ELLA-7 score (0-4 normal; 5-9 mild; 10-14 moderate; 15-21 severe): 0 Source: Developed by Drs. Antoine Owens, Aishwarya Hickey, Rick Lovell and colleagues, with an educational gustabo from Andre Phillipe. ELLA-7 Assessment Billing ELLA-7 Assessment Tool: ELLA-7 Assessment 30409 Review of Systems Const Denies body aches and Denies fatigue Eyes Denies change in vision ENT Reports no additional complaints Card Denies chest pain, Denies irregular heart rhythm, Denies lightheadedness and Denies dyspnea Resp Denies cough, Denies dyspnea and Denies wheezing GI Denies abdominal pain, Denies melena, Denies change in bowel habits, Denies heartburn and Denies nausea Reports no additional complaints Musc Reports no additional complaints Skin/Breast Reports as per HPI Neuro Reports no additional complaints Psych Reports no additional complaints Endo Denies fatigue Aller/Immun Denies wheezing Physical exam (Primary Care) Vital Signs: Last Vital Signs Pulse 77 07/25/23 13:14 BP 130/74 07/25/23 13:14 Pulse Ox 97 07/25/23 13:14 Oxygen Delivery Method Room Air 07/25/23 13:14 BMI result Body Mass Index 26.5 Tobacco/Smoking Status: Tobacco use Status Tobacco use date assessed 07/25/23 07/25/23 13:08 Patient Tobacco Use Status Current everyday Tobacco 07/25/23 13:22 e-Cigarette/Vaping Use Never Used 07/25/23 13:08 PHQ-9: PHQ-9 Score PHQ-9: Total score 0 07/25/23 13:52 Depression Screening Interpretation: Negative Thrive Assessment: Date of Thrive Assessment Date Thrive assessed 07/25/23 07/25/23 13:52 Const Other: Alert oriented x3, no acute distress noted ambulatory normal gait Orientation/consciousness: patient oriented x3 HENMT Head: Yes normocephalic Ears: external ears normal, TM's normal bilaterally and EAC's normal General nose exam: Normal external nose present Face and sinus: Yes face symmetric Mouth: Normal oral and palatal mucosa present, oropharynx normal and moist mucous membranes Eyes General: appearance normal, both eyes and all related structures Neck Neck: Yes full ROM, Yes no lymphadenopathy and Yes supple Chest Chest palpation & inspection: normal inspection of the chest Resp Auscultation: clear to auscultation bilaterally Cardio Other: S1-S2 present regular rate and rhythm GI Palpation (GI): Soft to palpation, nontender, no guarding and no masses Auscultation: normal bowel sounds Male General Exam: Yes normal external exam Penis: normal penis Meatus: meatus normal Scrotum: scrotum normal Skin Other: Firm slightly fluctuant mass on right inner thigh,, nontender to palpation with no active drainage., no inguinal lymphadenopathy palpated Neuro General: patient oriented x3, gait normal, moves all extremities, Normal light touch and pain sensation, no focal motor deficits and CN's II-XI intact bilaterally Extrem General: Yes full ROM, Yes no joint enlargement, Yes no clubbing, cyanosis or edema and Yes normal gait Psych Appearance: grossly normal and well kempt Mental Status: mental status grossly normal Speech and movement: Normal speech and movement present Affect: normal affect Attitude: cooperative Thought process: Normal thought process present Assessment and Plan Assessment & Plan (1) Annual visit for general adult medical examination with abnormal findings: Code(s): Z00.01 - Encounter for general adult medical examination with abnormal findings Plan: Reminded to get fasting labs done. Recommended regular dental visit every 6 months and regular eye exams, at least every 2 years. Take adequate calcium in diet and vitamin-D 3 at 2000 IU per cap once a day, in addition to weight-bearing exercises to help maintain good muscle tone and weight control. Instructed to do self-testicular exam to check for any mass. Is up-to-date with screening colonoscopy. Has had 3 COVID vaccination in the past, does not want to get the booster, nor does he want to get the other vaccines (2) Hidradenitis suppurativa: Comment: right buttock Code(s): L73.2 - Hidradenitis suppurativa Plan: Started on Augmentin 870-125 mg per tablet to take one tablet of for 10 days. Referred back to Dr. Fraga for further evaluation (3) Normocytic anemia: Code(s): D64.9 - Anemia, unspecified Plan: Patient reminded to get his labs, noted to have persistent micro hematuria, with no history of kidney stones, will check urine cytology (4) Essential hypertension: Code(s): I10 - Essential (primary) hypertension Plan: Continue lisinopril 10 mg daily, blood pressure at goal (5) Microhematuria: Code(s): R31.29 - Other microscopic hematuria Plan: Ordered urine cytology Orders: Orders Urine Cytology Today R31.29 - Other microscopic hematuria Referrals General Surgery Referral L73.2 - Hidradenitis suppurativa Medications: New amoxicillin-pot clavulanate 875-125 mg 1 tab PO Q12H 20 tabs 0RF L73.2 - Hidradenitis suppurativa Coding Level of Care Code Est Pt Prev Care 40-64y(96604) Diagnoses Annual visit for general adult medical examination with abnormal findings Z00.01 Hidradenitis suppurativa L73.2 Normocytic anemia D64.9 Essential hypertension I10 Microhematuria R31.29 Additional Codes ELLA-7 Assessment Billing - ELLA-7 Assessment Tool: ELLA-7 Assessment 08693 ([id number])
[2023-07-25 13:14] VITALS: BP 130/74; PULSE 77; O2SAT 97; BMI 26.5
== END 2023-07-25 13:52 | disposition home or self-care (01) ==
PROVIDERS: Visit Provider Internal Medicine
DX: Z00.01 Encounter for general adult medical examination with abnormal findings (principal); L73.2 Hidradenitis suppurativa; D64.9 Anemia, unspecified; I10 Essential (primary) hypertension; R31.29 Other microscopic hematuria
CPT/HCPCS: 99396

== ENCOUNTER 2023-07-29 10:41 | Outpatient (REF) | payer OTHER, SELFPAY ==
[2023-07-29 13:10] LABS: Urine Cytology See Pathology rpt
[2023-07-29 13:13] LABS: Appearance Urine Clear; Color Urine Yellow; Glucose Urine UA Negative (Negative); Leukocyte Esterase Urine Negative (Negative); Nitrite Urine Negative (Negative); PH 5.5 (5.0-9.0); UMIC TRIGGER UACC YES; Urine Blood Small (1+) (Negative); Urine Ketones Negative (Negative); Urine Protein Negative (Neg-Trace)
[2023-07-29 13:27] LABS: Bacteria Urine None Seen (None Seen); Hyaline Casts Urine 0-2 /LPF (0-2); Squamous Epithelial Cell Urine 0-2 /HPF (0-2); WBC Urine 0-5 /HPF (0-5)
[2023-07-29 13:37] LABS: Alanine Aminotransferase 21 U/L (0-40); Anion Gap 13 (12-20); Aspartate Amino Transferase 19 U/L (5-37); Blood Urea Nitrogen 19 mg/dL (9-16); Calcium 9.7 mg/dL (8.4-10.2); Carbon Dioxide 26 mmol/L (22-29); Chloride 106 mmol/L (96-108); Cholesterol 176 mg/dL (<200); Estimated Glomerular Filt Rate > 60; Glucose Fasting 98 mg/dL (60-99); HDL Cholesterol 39 mg/dL (>40); LDL Cholesterol Calculated 109 mg/dL (<100); Potassium 4.8 mmol/L (3.3-5.1); Sodium 140 mmol/L (135-145); Triglycerides 143 mg/dL (<150)
== END 2023-07-29 10:42 | disposition home or self-care (01) ==
LOC: HO.HMGCLDS 10:41
PROVIDERS: PCP Internal Medicine; Visit Provider Internal Medicine
DX: L73.2 Hidradenitis suppurativa (principal); D64.9 Anemia, unspecified; R31.29 Other microscopic hematuria; I10 Essential (primary) hypertension
CPT/HCPCS: 36415; 80048; 80061; 81001; 84450; 84460; 88112

== ENCOUNTER 2023-08-14 10:52 | Outpatient (REF) | payer OTHER, SELFPAY ==
[2023-08-14 13:22] LABS: MANUAL DIFF FLAG NO
[2023-08-14 13:26] LABS: Basophils Percent Auto 0.6 % (0-2); Eosinophils Absolute Auto 0.2 X10*3/uL (0.0-0.4); Eosinophils Percent Auto 3.5 % (0-4); Hematocrit 45.9 % (42.0-52.0); Hemoglobin 14.9 g/dl (14.0-18.0); Imm Gran Abs Auto 0.08 X10*3/uL (0.00-0.03); Imm Gran Pct Auto 1.3 % (0.0-0.4); Lymphocytes Absolute Auto 1.9 X10*3/uL (1.2-4.9); Lymphocytes Percent Auto 29.8 % (20-40); Mean Corpuscular HGB Conc 32.5 g/dl (31.0-36.0); Mean Corpuscular Hemoglobin 28.4 pg (27.0-33.0); Mean Corpuscular Volume 87.4 fL (80.0-98.0); Mean Platelet Volume 11.2 fL (9.4-12.4); Monocytes Absolute Auto 0.3 X10*3/uL (0.1-1.2); Monocytes Percent Auto 4.9 % (2-11); Neutrophils Absolute Auto 3.8 x10*3/uL (2.0-8.3); Neutrophils Percent Auto 59.9 % (45-73); Platelet Count 222 X10*3/uL (160-400); Red Blood Count 5.25 X10*6/uL (4.60-5.80); Red Cell Distribution Width 13.9 % (11.0-16.0); White Blood Count 6.3 X10*3/uL (4.8-10.8)
[2023-08-14 13:44] LABS: Alanine Aminotransferase 15 U/L (0-40); Albumin Level 4.1 g/dL (3.5-5.0); Alkaline Phosphatase 75 U/L (39-117); Anion Gap 14 (12-20); Aspartate Amino Transferase 19 U/L (5-37); Bilirubin Total 0.5 mg/dL (0.0-1.0); Blood Urea Nitrogen 16 mg/dL (9-16); Calcium 9.7 mg/dL (8.4-10.2); Carbon Dioxide 25 mmol/L (22-29); Chloride 105 mmol/L (96-108); Estimated Glomerular Filt Rate > 60; Glucose Random 109 mg/dL (60-115); Potassium 4.4 mmol/L (3.3-5.1); Sodium 140 mmol/L (135-145); Total Protein 7.6 g/dL (6.5-8.0)
[2023-08-15 04:17] LABS: HBS Num1 0.41 mIU/mL (0-7.99); HBc Num1 0.11 S/CO (0.00-0.79); HBsAGNum1 0.37 S/CO (0.00-0.99); Hepatitis B Core Antibody Nonreactive (Nonreactive); Hepatitis B Surface Antigen Negative (Negative); ~HepC Num1 0.17 S/CO (0.00-0.79); ~Hepatitis A Antibody IgM Nonreactive (Nonreactive); ~Hepatitis B Surface Antibody NONREACTIVE (Nonreactive); ~Hepatitis C Antibody Nonreactive (Nonreactive)
[2023-08-16 21:38] LABS: TS Negative Control Passed; TS Panel A 0; TS Panel B 0; TS Positive Control Passed; TSpotTB Negative (Negative)
== END 2023-08-14 10:53 | disposition home or self-care (01) ==
LOC: HO.HMGCLDS 10:52
PROVIDERS: PCP Internal Medicine; Visit Provider Nurse Practitioner Gerontology
DX: L73.2 Hidradenitis suppurativa (principal); K75.9 Inflammatory liver disease, unspecified
CPT/HCPCS: 36415; 80053; 85025; 86481; 86704; 86706; 86709; 86803; 87340

== ENCOUNTER 2023-08-15 14:02 | Outpatient (AMB) | payer OTHER, SELFPAY ==
[2023-08-15 14:05] VITALS: BP 122/83; PULSE 108; BMI 26.5
--- NOTE | 2023-08-15 14:05 | MHC.OFFVIS ---
Intake Vital Signs 08/15/23 14:05 Height 5 ft 8.5 in Weight 177 lb BMI 26.5 BP 122/83 Blood Pressure Location Rt brachial Position Standing Pulse 108 H Intake Visit Reasons: HS Intake Note: This patient presents for an assessment for hidradenitis suppurativa. Patient c/o; HS. Chief Crna Required: No Accompanied by: Self / Same As Patient Allergies No Known Allergies Allergy (Verified 08/15/23 14:06) Medication List - Last Reviewed 08/15/23 by KAHLIL Randhawa amoxicillin-pot clavulanate 875-125 mg 1 tab PO Q12H clindamycin phosphate 1% topical BID cyclobenzaprine 10 mg PO BID finasteride mg PO ibuprofen 600 mg PO Q6H PRN lisinopril 10 mg PO DAILY HPI HS HPI Details 52-year-old male referred for follow-up for his hidradenitis suppurativa. He has actually been seeing a api developer in [place] for this as I had referred him for his long history of hidradenitis suppurative a. He says that he was told that the would like to try him on Humira He was a little concerned about 1 area in the right groin and near the buttock were there has been persistent induration with scanty drainage. Otherwise he denies significant pain. COUNTS INCLUDE 234 BEDS AT THE [facility] Medical History Impacted cerumen, bilateral Family history of abdominal aortic aneurysm Essential hypertension Erectile dysfunction Hidradenitis suppurativa Epidermal cyst Cholecystitis, acute with cholelithiasis Normocytic anemia Common bile duct (CBD) obstruction Gallstones Surgical History Hx of colonoscopy History of ERCP Hx of adenoidectomy Hx of inguinal hernia repair History of laparoscopic cholecystectomy Family History Father High cholesterol Heavy smoker ASHD (arteriosclerotic heart disease) Mother Cirrhosis Diabetes mellitus Brother Substance use disorder Mental health disorder Sister No problems noted. Son No problems noted. Daughter No problems noted. Maternal Uncle ASHD (arteriosclerotic heart disease) Paternal Aunt Rheumatoid arthritis Social History Housing: House Alcohol intake: never Patient Tobacco Use Status: Current everyday Tobacco user e-Cigarette/Vaping Use: Never Used Second Hand Smoke Exposure: No Substance Use Type: Marijuana service: No Current occupational status: unemployed Cognitive needs: No Hearing needs: No Vision needs: Yes Review of Systems Const Denies chills and Denies fever(s) Card Denies chest pain, Denies dyspnea and Denies dyspnea on exertion Resp Denies cough, Denies dyspnea and Denies dyspnea on exertion GI Denies hematochezia and Denies change in bowel habits Denies hematuria and Denies difficulty urinating Musc Denies back pain and Denies limited range of motion Neuro Denies focal weakness and Denies convulsions Psych Denies depression and Denies mood swings Physical Exam Const General: comfortable and no acute distress Resp Auscultation: clear to auscultation bilaterally Cardio Rhythm: regular rhythm GI Palpation (GI): Soft to palpation and nontender Skin Other: Most of his areas of hidradenitis in the groin and thighs appear to be inactive. There were 1 area on the right buttock near the anus that appears to have some induration with very scanty drainage. This nonfluctuant. Another similar area is seen in the medial aspect of the left thigh near the groin. This is nonfluctuant as well. Assessment & Plan Assessment & Plan (1) Hidradenitis suppurativa: Comment: right buttock Code(s): L73.2 - Hidradenitis suppurativa Plan: He has had multiple excisions of different areas of hidradenitis in the groin and medial thigh and the scrotum. There were 2 areas as described above that appear to be active. There is no drainable abscess at this time I did tell him that I would recommend going ahead with Humira treatment for long-term control of his disease. At this time, it does not appear that he will need any I&D or and debridement. However, I did tell him that if he has worsening of the swelling or discharge, he can come back to the office to be re-evaluated. Coding Level of Care Code Est Pt Level 3 (13128) Diagnoses Hidradenitis suppurativa L73.2
== END 2023-08-15 14:21 | disposition home or self-care (01) ==
PROVIDERS: PCP Internal Medicine; Referring Provider Internal Medicine; Visit Provider Surgery
DX: L73.2 Hidradenitis suppurativa (principal)
CPT/HCPCS: 99213

== ENCOUNTER → 2023-08-15 14:02 | Outpatient (BNVA) | payer OTHER, SELFPAY | PROVIDERS: PCP Internal Medicine; Referring Provider Internal Medicine; Visit Provider Surgery | DX: L73.2 Hidradenitis suppurativa (principal) | CPT/HCPCS: 99212 ==

== ENCOUNTER 2024-01-01 20:40 | Emergency (ER) | payer OTHER, SELFPAY ==
--- NOTE | ~2024-01-01 | CT_ITS ---
EXAMINATION: CT ABDOMEN AND PELVIS WITHOUT CONTRAST CLINICAL INFORMATION: Left lower quadrant pain COMPARISON: Previous CT of the abdomen and pelvis, abdomen ultrasound and MRCP from 2019 TECHNIQUE: Multidetector volumetric imaging was performed from the superior aspect of the liver through the pubic symphysis. Sagittal and coronal reformatted images were obtained on the technologist's workstation. This CT examination was performed using dose optimization techniques as appropriate, variously including the following: *Automated exposure control *Adjustment of mA and/or kV according to patient size (this includes techniques or standardized protocols for targeted exams where dose is matched to indication/reason for exam; i.e. extremities or head) *Use of iterative reconstruction technique DLP: 463 mGy-cm FINDINGS: LUNG BASES: The visualized lung bases are unremarkable. LIVER, GALLBLADDER, AND BILIARY TREE: The liver is normal in size, shape, and attenuation. Gallbladder is been removed. There is a small cyst in the liver near the gallbladder fossa. No biliary duct dilatation. PANCREAS: Unremarkable. SPLEEN: Unremarkable. ADRENAL GLANDS: Unremarkable. KIDNEYS AND URETERS: Moderate left hydronephrosis and ureteral dilatation from a 4 mm left distal stones. No renal stone. Small right renal cyst. No imaging follow-up recommended. BLADDER: Unremarkable. GASTROINTESTINAL TRACT: Mild diverticulosis of the colon. The small and large bowel are otherwise unremarkable. The appendix is unremarkable. ABDOMINAL WALL: No significant hernia is appreciated. LYMPH NODES: Normal. VASCULAR: Unremarkable. PELVIC VISCERA: Unremarkable. OSSEOUS STRUCTURES: Unremarkable. CT/CT abdomen pelvis wo IV con IMPRESSION: Moderate left hydronephrosis and left ureteral dilatation from a 4 mm distal ureteral stone. Fleischner guidelines were followed.
--- NOTE | 2024-01-01 20:43 | ED.GENADULT ---
HPI - General Adult General Chief complaint: Abdominal Pain Stated complaint: severe lower left side abd pain Time Seen by Provider: 01/01/24 21:10 Source: patient and family Mode of arrival: ambulatory History of Present Illness HPI narrative: 53-YEAR-OLD MALE REPORTS THAT IN THE AFTERNOON HE BEGAN TO HAVE SEVERE left flank pain with radiation into the anterior aspect the groin area with associated nausea but did not vomit and denies any fevers or chills. He has been unable to urinate since here in the emergency room, but pain has improved after receiving Toradol. Related Data Home Medications Medication Instructions Recorded Confirmed clindamycin phosphate 1 % topical topical BID 01/17/23 08/15/23 gel cyclobenzaprine 10 mg tablet 10 mg PO BID 01/17/23 08/15/23 finasteride 5 mg tablet mg PO 08/15/23 Previous Rx's Medication Instructions Recorded ibuprofen 600 mg tablet 600 mg PO Q6H PRN pain #30 tabs 01/10/22 lisinopril 10 mg tablet 10 mg PO DAILY #90 tabs 01/17/23 amoxicillin 875 mg-potassium 1 tab PO Q12H #20 tabs 07/25/23 clavulanate 125 mg tablet ketorolac 10 mg tablet 10 mg PO Q6H PRN pain 5 days #20 01/01/24 tabs ondansetron 4 mg disintegrating 4 mg PO Q8H PRN nausea and 01/01/24 tablet vomiting 4 days #7 tabs prednisone 20 mg tablet 20 mg PO DAILY #4 tabs 01/01/24 tamsulosin 0.4 mg capsule (Flomax) 0.4 mg PO BEDTIME #5 caps 01/01/24 Allergies Allergy/AdvReac Type Severity Reaction Status Date / Time No Known Allergies Allergy Verified 08/15/23 14:06 Review of Systems Review of Systems: Pertinent positives and negatives as stated in HPI [facility] Past Medical History Source: nursing notes reviewed Medical History Impacted cerumen, bilateral Family history of abdominal aortic aneurysm Essential hypertension Erectile dysfunction Hidradenitis suppurativa Epidermal cyst Cholecystitis, acute with cholelithiasis Normocytic anemia Common bile duct (CBD) obstruction Gallstones Surgical History Hx of colonoscopy History of ERCP Hx of adenoidectomy Hx of inguinal hernia repair History of laparoscopic cholecystectomy Family History Family History Father High cholesterol Heavy smoker ASHD (arteriosclerotic heart disease) Mother Cirrhosis Diabetes mellitus Brother Substance use disorder Mental health disorder Sister No problems noted. Son No problems noted. Daughter No problems noted. Maternal Uncle ASHD (arteriosclerotic heart disease) Paternal Aunt Rheumatoid arthritis Social History Social History Housing: House Alcohol intake: never Comment: overflow obs Patient Tobacco Use Status: Current everyday Tobacco user e-Cigarette/Vaping Use: Never Used Second Hand Smoke Exposure: No Substance Use Type: Marijuana Advance Directives: Yes Advance Directives on File: Yes Advance Directives Date on File: 09/23/20 service: No Current occupational status: unemployed Cognitive needs: No Hearing needs: No Vision needs: Yes Physical Exam ED Vital Signs: Vital Signs - 24 hr 01/01/24 20:46 Temperature 97.3 F Pulse Rate 66 Respiratory Rate 16 Blood Pressure 168/102 H Pulse Oximetry 98 Oxygen Delivery Method Room Air BMI result Body Mass Index 26.6 VITAL SIGNS: Reviewed. GENERAL: Well developed, well nourished, in no acute distress. HEAD: Normocephalic/atraumatic EYES: PERRLA, EOMI LUNGS: Normal breath sounds. No adventitious sounds or accessory muscle use. SpO2<98> CARDIOVASCULAR: Regular rate and rhythm without noted murmurs ABDOMEN: Soft, mild discomfort on deep palpation left lower quadrant, no rebound, non-distended with bowel sounds. MUSCULOSKELETAL: No tenderness, deformities, or effusions noted on gross inspection. EXTREMITIES: No cyanosis, clubbing or edema. SKIN: Inspection of the skin reveals no rashes NEUROLOGIC: Alert and oriented x 4. Strength and sensation to light touch were grossly intact x 4. Course Course Course Narrative: This is a rapid medical exam: Additional HPI, ROS, PE not included below will be deferred to primary provider. Patient is a 53-year-old male with history of HTN, erectile dysfunction, gallstones, cholecystectomy presenting to the emergency department with complaint of severe left lower quadrant abdominal pain for the past hour. Reports urinary frequency. Denies history of kidney stones but reports family history of kidney stones. Patient appears very uncomfortable in triage. Zofran and toradol ordered. Plan: UA, labs, CT Medications Administered Generic Name Dose Route Start Last Admin Trade Name Freq PRN Reason Stop Dose Admin Sodium Chloride 1,000 mls @ 999 mls/hr 01/01/24 22:00 01/01/24 22:08 Ns IV 01/01/24 23:00 999 mls/hr .Q1H1M SARAH Administration Discontinued Medications Generic Name Dose Route Start Last Admin Trade Name Freq PRN Reason Stop Dose Admin Ketorolac Tromethamine 30 mg 01/01/24 20:47 01/01/24 20:54 Ketorolac Tromethamine 30 Mg/Ml Vial IM 01/01/24 20:48 30 mg ONCE ONE Administration Ondansetron HCl 4 mg 01/01/24 20:47 01/01/24 20:51 Ondansetron Odt 4 Mg Tab.Rapdis TRANSLINGU 01/01/24 20:48 4 mg ONCE ONE Administration Medical Decision Making Medical Decision Making [facility] Narrative: 0: 53-year-old male with history and clinical presentation, DDX: Renal colic, lower clinical suspicion for UTI/diverticulitis or constipation. Patient given antiemetics/IV fluids/pain medication Reviewed all investigations and hematologic indices do not demonstrate leukocytosis/anemia or thrombocytopenia. Chemistry indices do not demonstrate an JODI or electrolyte/liver enzyme derangements. CT scan demonstrates left hydro with 4 mm stone in patient currently states that his pain is fairly well controlled. Will discharge patient for short follow-up with urology in the morning, all results and findings discussed with him at bedside and provided with home medications. Differential Diagnosis Differential Diagnoses: The differential diagnosis associated with the presentation includes Please see the discussion above Admission/Observation Consideration of admission/observation: Escalation of care including admission/observation considered Please see the discussion above Lab Data [facility] Lab Attestation statement: I reviewed the patient's lab results. Please see the discussion above 01/01/24 21:19 01/01/24 21:19 Labs: Lab Results 01/01/24 Range/Units 21:19 WBC 9.3 (4.8-10.8) X10*3/uL RBC 4.85 (4.60-5.80) X10*6/uL Hgb 14.3 (14.0-18.0) g/dl Hct 41.4 L (42.0-52.0) % MCV 85.4 (80.0-98.0) fL MCH 29.5 (27.0-33.0) pg MCHC 34.5 (31.0-36.0) g/dl RDW 13.4 (11.0-16.0) % Plt Count 178 (160-400) X10*3/uL MPV 10.6 (9.4-12.4) fL Immature Gran % (Auto) 1.2 H (0.0-0.4) % Neut % (Auto) 73.1 H (45-73) % Lymph % (Auto) 18.0 L (20-40) % Mitchell % (Auto) 5.6 (2-11) % Eos % (Auto) 1.6 (0-4) % Baso % (Auto) 0.5 (0-2) % Lymph # (Auto) 1.7 (1.2-4.9) X10*3/uL Mitchell # (Auto) 0.5 (0.1-1.2) X10*3/uL Eos # (Auto) 0.2 (0.0-0.4) X10*3/uL Baso # (Auto) 0.1 (0.0-0.2) X10*3/uL Abs Immat Gran (auto) 0.11 H (0.00-0.03) X10*3/uL Absolute Neuts (auto) 6.8 (2.0-8.3) x10*3/uL Absolute Nucleated RBC 0.000 (0.0-0.012) X10*3/uL Nucleated RBC % (auto) 0.0 (0.0-0.2) /100WBC Sodium 136 (135-145) mmol/L Potassium 3.8 (3.3-5.1) mmol/L Chloride 105 (96-108) mmol/L Carbon Dioxide 21 L (22-29) mmol/L Anion Gap 14 (12-20) BUN 20 H (9-16) mg/dL Creatinine 1.03 (0.5-1.4) mg/dL Estim Creat Clear Calc 81.1 Estimated GFR > 60 Random Glucose 133 H (60-115) mg/dL Calcium 9.4 (8.4-10.2) mg/dL Total Bilirubin 0.4 (0.0-1.0) mg/dL AST 30 (5-37) U/L ALT 32 (0-40) U/L Alkaline Phosphatase 73 (39-117) U/L Total Protein 7.4 (6.5-8.0) g/dL Albumin 4.2 (3.5-5.0) g/dL Radiology Impression Discussion of test interpretation with radiology: I have reviewed the radiologist's reading. Radiologist Impression: Please see the discussion above External Record Review External record reviewed: Outpatient record and Prior outpatient labs Chronic Conditions Patient?s care impacted by: Hypertension Critical Care Time Critical Care Time Critical Care Time: Yes Total Critical Care Time: 45 Attestation: I personally attest to this time spent taking care of the patient. Discharge Plan Discharge Clinical Impression: Hydronephrosis, left, Renal colic, Ureterolithiasis Patient Disposition: Home, Self-Care Instructions: Renal Colic (ED), Low Oxalate Diet (ED), Hydronephrosis (ED), Ureteral Stones (ED) Additional Instructions: 1. Resume all home medications as prescribed. Increase the amount of water intake and limit amount of carbonated/caffeinated products at this time. 2. Please take medications you are being prescribed this evening as directed. 3. Please call the office of the urologist 1st thing in the morning to set up an appointment for re-evaluation. Return to the ER for any worsening symptoms. Prescriptions: New ketorolac 10 mg tablet 10 mg PO Q6H PRN (Reason: pain) 5 Days Qty: 20 0RF Rx Instructions: Patient received Toradol in the emergency room tamsulosin [Flomax] 0.4 mg capsule 0.4 mg PO BEDTIME Qty: 5 0RF prednisone 20 mg tablet 20 mg PO DAILY Qty: 4 0RF ondansetron 4 mg tablet,disintegrating 4 mg PO Q8H PRN (Reason: nausea and vomiting) 4 Days Qty: 7 0RF No Action ibuprofen 600 mg tablet 600 mg PO Q6H PRN (Reason: pain) Qty: 30 0RF cyclobenzaprine 10 mg tablet 10 mg PO BID clindamycin phosphate 1 % gel topical BID lisinopril 10 mg tablet 10 mg PO DAILY Qty: 90 3RF amoxicillin-pot clavulanate 875-125 mg tablet 1 tab PO Q12H Qty: 20 0RF finasteride 5 mg tablet PO Referrals: Marlyn Borja MD [Primary Care Provider] - Dudley Wilson MD [Physician] -
[2024-01-01 20:46] VITALS: BP 168/102; PULSE 66; RESP 16; TEMP 36.3; O2SAT 98; BMI 26.6
[2024-01-01] MEDS: Ondansetron ODT 4 MG TAB.RAPDIS TRANSLINGU (20:51)
[2024-01-01] MEDS: Ketorolac Tromethamine 30 MG/ML VIAL IM (20:54)
[2024-01-01 21:24] LABS: MANUAL DIFF FLAG NO
[2024-01-01 21:34] LABS: Basophils Absolute Auto 0.1 X10*3/uL (0.0-0.2); Basophils Percent Auto 0.5 % (0-2); Eosinophils Absolute Auto 0.2 X10*3/uL (0.0-0.4); Eosinophils Percent Auto 1.6 % (0-4); Hematocrit 41.4 % (42.0-52.0); Hemoglobin 14.3 g/dl (14.0-18.0); Imm Gran Abs Auto 0.11 X10*3/uL (0.00-0.03); Imm Gran Pct Auto 1.2 % (0.0-0.4); Lymphocytes Absolute Auto 1.7 X10*3/uL (1.2-4.9); Mean Corpuscular HGB Conc 34.5 g/dl (31.0-36.0); Mean Corpuscular Hemoglobin 29.5 pg (27.0-33.0); Mean Corpuscular Volume 85.4 fL (80.0-98.0); Mean Platelet Volume 10.6 fL (9.4-12.4); Monocytes Absolute Auto 0.5 X10*3/uL (0.1-1.2); Monocytes Percent Auto 5.6 % (2-11); Neutrophils Absolute Auto 6.8 x10*3/uL (2.0-8.3); Neutrophils Percent Auto 73.1 % (45-73); Platelet Count 178 X10*3/uL (160-400); Red Blood Count 4.85 X10*6/uL (4.60-5.80); Red Cell Distribution Width 13.4 % (11.0-16.0); White Blood Count 9.3 X10*3/uL (4.8-10.8)
[2024-01-01 21:43] LABS: Alanine Aminotransferase 32 U/L (0-40); Albumin Level 4.2 g/dL (3.5-5.0); Alkaline Phosphatase 73 U/L (39-117); Anion Gap 14 (12-20); Aspartate Amino Transferase 30 U/L (5-37); Bilirubin Total 0.4 mg/dL (0.0-1.0); Blood Urea Nitrogen 20 mg/dL (9-16); Calcium 9.4 mg/dL (8.4-10.2); Carbon Dioxide 21 mmol/L (22-29); Chloride 105 mmol/L (96-108); Creatinine Clr Calc Pharmacy 81.1; Estimated Glomerular Filt Rate > 60; Glucose Random 133 mg/dL (60-115); Potassium 3.8 mmol/L (3.3-5.1); Sodium 136 mmol/L (135-145); Total Protein 7.4 g/dL (6.5-8.0)
[2024-01-01] MEDS: 0.9 % Sodium Chloride 1,000 ML 999 ML IV (22:08)
[2024-01-01] MEDS: Ketorolac Tromethamine 30 MG/ML VIAL 15 MG IVPUSH (23:09)
== END 2024-01-01 23:13 | disposition home or self-care (01) ==
PROVIDERS: Registered Nurse Emergency; Emergency Provider Student in an Organized Health Care Education/Training Program; PCP Internal Medicine
DX: N13.2 Hydronephrosis with renal and ureteral calculous obstruction (principal); I10 Essential (primary) hypertension
CPT/HCPCS: 36415; 74176; 80053; 85025; 96372; 96374; 99284; J1885

== ENCOUNTER 2024-01-07 15:05 | Outpatient (AMB) | payer OTHER, SELFPAY ==
--- NOTE | 2024-01-07 15:13 | A.OFFVIS_ITS ---
Intake Intake Visit Reasons: Nephrolithiasis Intake Note: NEW Patient presents today to established treatment for Nephrolithiasis & Hydronephrosis: Meds- Tamsulosin & Finasteride Allergies to Antibiotic- No Known Allergies Blood Thinner- None Asphalt Layer Required: No Accompanied by: Self / Same As Patient Allergies No Known Allergies Allergy (Verified 01/07/24 15:14) Medication List - Last Reconciled 01/07/24 by Candelaria Self MD clindamycin phosphate 1% topical BID ibuprofen 600 mg PO Q6H PRN ketorolac 10 mg PO Q6H PRN 5 days lisinopril 10 mg PO DAILY HPI HPI Comments History of Present Illness Details Antoine is a 53-year-old male who was in the emergency room [id number] with left flank pain. I have reviewed chart he had a CT abdomen pelvis noting a 4 mm left ureteral distal stone with moderate hydronephrosis. The patient is currently asymptomatic. He thinks he passed the stone. 01/07/2024--discussed follow-up renal ultr asound to confirm hydronephrosis resolved [facility] Medical History Impacted cerumen, bilateral Family history of abdominal aortic aneurysm Essential hypertension Erectile dysfunction Hidradenitis suppurativa Epidermal cyst Cholecystitis, acute with cholelithiasis Normocytic anemia Common bile duct (CBD) obstruction Gallstones Surgical History Hx of colonoscopy History of ERCP Hx of adenoidectomy Hx of inguinal hernia repair History of laparoscopic cholecystectomy Family History Father High cholesterol Heavy smoker ASHD (arteriosclerotic heart disease) Mother Cirrhosis Diabetes mellitus Brother Substance use disorder Mental health disorder Sister No problems noted. Son No problems noted. Daughter No problems noted. Maternal Uncle ASHD (arteriosclerotic heart disease) Paternal Aunt Rheumatoid arthritis Social History Housing: House Alcohol intake: never Comment: overflow obs Patient Tobacco Use Status: Current everyday Tobacco user e-Cigarette/Vaping Use: Never Used Second Hand Smoke Exposure: No Substance Use Type: Marijuana Advance Directives Date on File: 09/23/20 service: No Current occupational status: unemployed Cognitive needs: No Hearing needs: No Vision needs: Yes Review of Systems Const All systems reviewed & are unremarkable except as noted in HPI and below Reports no additional complaints Eyes Reports no additional complaints ENT Reports no additional complaints Card Reports no additional complaints Resp Reports no additional complaints GI Reports no additional complaints Reports as per HPI Musc Reports no additional complaints Skin/Breast Reports system reviewed and no additional complaints, except as documented Neuro Reports no additional complaints Psych Reports no additional complaints Endo Reports no additional complaints Monty/Lymph Reports no additional complaints Aller/Immun Reports no additional complaints Physical Exam Const General: healthy appearing, no acute distress and well developed Orientation/consciousness: patient oriented x3 HEENT Head: Yes normocephalic and Yes atraumatic Eyes Conjunctivae: conjunctivae normal Neck Neck: Yes normal visual inspection Chest Chest palpation & inspection: normal inspection of the chest Resp Effort & Inspection: normal respiratory effort Cardio Rate: regular rate GI Inspection: Yes normal to inspection Skin General skin exam: no rashes or lesions noted Neuro General: patient oriented x3 Extrem General: No pedal edema Psych Appearance: grossly normal Affect: normal affect Results AMB Urinalysis, Automated UA Leukoctes 0 Sera/uL Last Edit by KAHLIL Krishnan on 01/07/24 16:07 UA Nitrite Negative Last Edit by KAHLIL Krishnan on 01/07/24 16:07 UA Urobilinogen 0.2 mg/dL Last Edit by KAHLIL Krishnan on 01/07/24 16:0 7 UA Protein 15 mg/dL Last Edit by KAHLIL Krishnan on 01/07/24 16:07 UA pH 6.0 Last Edit by KAHLIL Krishnan on 01/07/24 16:07 UA Blood 80 Maulik/uL Last Edit by KAHLIL Krishnan on 01/07/24 16:07 2+ Veronica Colin 01/07/24 16:07 UA Specific [place] 1.025 Last Edit by KAHLIL Krishnan on 01/07/24 16: 07 UA Ketone Negative Last Edit by KAHLIL Krishnan on 01/07/24 16:07 UA Bilirubin 0 mg/dL Last Edit by KAHLIL Krishnan on 01/07/24 16:07 UA Glucose 0 mg/dL Last Edit by KAHLIL Krishnan on 01/07/24 16:07 Results Reviewed Results Reviewed: Laboratory Last Values Urine pH (Auto) 6.0 01/07/24 16:04 Specific [place] (Auto) 1.025 01/07/24 16:04 Urine Protein (Auto) 15 mg/dL 01/07/24 16:04 Glucose (UA)(Auto) 0 mg/dL 01/07/24 16:04 Urine Ketones (Auto) Negative 01/07/24 16:04 Urine Blood (Auto) 80 Maulik/uL 01/07/24 16:04 Urine Nitrite (Auto) Negative 01/07/24 16:04 Urine Bilirubin (Auto) 0 mg/dL 01/07/24 16:04 Urine Urobilinogen (Auto) 0.2 mg/dL 01/07/24 16:04 Leukocyte Esterase (Auto) 0 Sera/uL 01/07/24 16:04 Date of Service: 01/01/24 EXAMINATION: CT ABDOMEN AND PELVIS WITHOUT CONTRAST CLINICAL INFORMATION: Left lower quadrant pain COMPARISON: Previous CT of the abdomen and pelvis, abdomen ultrasound and MRCP from 2019 DLP: 463 mGy-cm FINDINGS: LUNG BASES: The visualized lung bases are unremarkable. LIVER, GALLBLADDER, AND BILIARY TREE: The liver is normal in size, shape, and attenuation. Gallbladder is been removed. There is a small cyst in the liver near the gallbladder fossa. No biliary duct dilatation. PANCREAS: Unremarkable. SPLEEN: Unremarkable. ADRENAL GLANDS: Unremarkable. KIDNEYS AND URETERS: Moderate left hydronephrosis and ureteral dilatation from a 4 mm left distal stones. No renal stone. Small right renal cyst. No imaging follow-up recommended. BLADDER: Unremarkable. GASTROINTESTINAL TRACT: Mild diverticulosis of the colon. The small and large bowel are otherwise unremarkable. The appendix is unremarkable. ABDOMINAL WALL: No significant hernia is appreciated. LYMPH NODES: Normal. VASCULAR: Unremarkable. PELVIC VISCERA: Unremarkable. OSSEOUS STRUCTURES: Unremarkable. IMPRESSION: Moderate left hydronephrosis and left ureteral dilatation from a 4 mm distal ureteral stone. Assessment & Plan Assessment & Plan (1) Hydronephrosis: Code(s): N13.30 - Unspecified hydronephrosis (2) Ureterolithiasis: Code(s): N20.1 - Calculus of ureter (3) Calculus of kidney: Code(s): N20.0 - Calculus of kidney Plan Renal ultrasound Orders: Orders AMB Urinalysis Automated 01/07/24 Z13.9 - Encounter for screening, unspecified US retroperitoneal comp 01/07/24 N13.30 - Unspecified hydronephrosis, N20.1 - Calculus of ureter Patient Instructions: The patient had an opportunity to ask questions regarding treatment plan. All questions were answered. Imaging, Laboratory studies and physical exam results were discussed and reviewed in detail. No major barriers to understanding were identified. The patient expressed understanding and agreement with the above treatment plan. The patient is aware they should contact our office by phone for worsening of their current condition or the appearance of new symptoms. Compliance is encouraged with any medications and followup testing that is ordered. It is a privilege to be allowed the opportunity to participate in the urologic care of your patient. If you have any questions or concerns regarding treatment for the above conditions please do not hesitate to contact me. The office telephone contact is [phone]. This note is constructed in part using voice recognition software. While every effort has been made to ensure accuracy tuber machine cutter errors may have been included. Yours sincerely, Candelaria Self MD Coding Level of Care Code New Pt Level 3 (84151) Diagnoses Hydronephrosis N13.30 Ureterolithiasis N20.1 Calculus of kidney N20.0
== END 2024-01-07 16:43 | disposition home or self-care (01) ==
PROVIDERS: PCP Internal Medicine; Visit Provider Urology
DX: N13.30 Unspecified hydronephrosis (principal); N20.1 Calculus of ureter; N20.0 Calculus of kidney
CPT/HCPCS: 99203

== ENCOUNTER → 2024-01-07 15:05 | Outpatient (BNVA) | payer OTHER, SELFPAY | PROVIDERS: PCP Internal Medicine; Visit Provider Urology | DX: N13.30 Unspecified hydronephrosis (principal); N20.1 Calculus of ureter; N20.0 Calculus of kidney | CPT/HCPCS: 81003; 99202 ==

== ENCOUNTER 2024-01-27 15:23 | Outpatient (REF) | payer OTHER, SELFPAY ==
--- NOTE | ~2024-01-27 | US_ITS ---
EXAMINATION: US RETROPERITONEAL COMPLETE (RENAL) CLINICAL INFORMATION: Unspecified hydronephrosis. COMPARISON: CT abdomen and pelvis 01/01/2024. MRI MRCP 11/02/2020. Limited abdominal ultrasound 11/02/2020. TECHNIQUE: Real-time imaging of the kidneys and bladder. FINDINGS: RIGHT KIDNEY: 11.5 x 6.5 x 5.9 cm (SAG x AP x TRV). The kidney is normal in size, contour, and echogenicity. Renal cortical thickness is normal. No renal calculi or hydronephrosis. 1.2 x 1.0 x 0.9 cm simple exophytic cyst is seen in the upper to mid kidney. No imaging follow-up is recommended. LEFT KIDNEY: 10.9 x 6.0 x 5.4 cm (SAG x AP x TRV). The kidney is normal in size, contour, and echogenicity. Renal cortical thickness is normal. No calculi or focal parenchymal lesions. No hydronephrosis. BLADDER: Well distended and normal. Bilateral ureteral jets are demonstrated. Prevoid bladder volume is 352 mL. Postvoid bladder volume is 78 mL. Prostate volume 27 mL. US/US retroperitoneal comp IMPRESSION: 1. 1.2 cm simple exophytic cyst in the upper to mid right kidney. No imaging follow-up is recommended. 2. Normal appearance of the left kidney. 3. Moderate post void residual.
== END 2024-01-27 15:24 | disposition home or self-care (01) ==
LOC: HO.HMGCX 15:23
PROVIDERS: PCP Internal Medicine; Visit Provider Urology
DX: N13.30 Unspecified hydronephrosis (principal); N20.1 Calculus of ureter
CPT/HCPCS: 76770

== ENCOUNTER 2024-02-12 13:49 | Outpatient (AMB) | payer OTHER, SELFPAY ==
--- NOTE | 2024-02-12 13:51 | A.OFFVIS_ITS ---
Intake Intake Visit Reasons: 6 weeks follow up/ US Intake Note: Patient presents today for a follow-up, US Results: Meds- None Allergies to Antibiotic- No Known Allergies Blood Thinner- None Theology Professor Required: No Accompanied by: Self / Same As Patient Allergies No Known Allergies Allergy (Verified 02/12/24 13:52) Medication List - Last Reconciled 02/12/24 by Candelaria Self MD ibuprofen 600 mg PO Q6H PRN ketorolac 10 mg PO Q6H PRN 5 days lisinopril 10 mg PO DAILY sildenafil (Viagra) 100 mg PO DAILY PRN HPI HPI Comments History of Present Illness Details 02/12/2024-Antoine is here with his i n follow-up post renal ultrasound. I have reviewed the renal ultrasound 01/27/24-results. Left kidney hydronephrosis is resolved no nephro or ureterolithiasis noted incidental 1.2 cm right renal cyst. I have discussed at length diet modification to decrease risk of forming more kidney stones. I have discussed low oxalate diet and specific foods to avoid including certain green leafy vegetables, chocalate, nuts, tea, beets, rubarb; low sodium, decreased use of animal protein and the importance of hydration drinking up to 2-2.5 liters of fluids and use of adding lemon to water to increase citrate in the diet. A pamphlet is also provided today. The patient complains of erectile dysfunction. He used Viagra about a year ago without success. He states that he has had some anxiety regarding problems with hidradenitis which affected his groin area. He is currently on Humira and has had improvement in these symptoms. I have discussed trying the Viagra again 100 mg half tab to 1 tab prior to intercourse. Discussed side effects including headache, visual transient blue haze, erection lasting longer than 4 hours he needs to seek immediate emergency attention. Plan-diet modification to decrease risk for kidney stones. Viagra sent to his pharmacy with Thor pinedapon. Follow-up in 4 months. Review of chart: 01/07/24--Antoine is a 53-year-old male who was in the emergency room [address] with left flank pain. I have reviewed chart he had a CT abdomen pelvis noting a 4 mm left ureteral distal stone with moderate hydronephrosis. The patient is currently asymptomatic. He thinks he passed the stone. --discussed follow-up renal ultrasound t o confirm hydronephrosis resolved 02/12/2024--Plan-diet modification to dec rease risk for kidney stones. Norman sent to his pharmacy with GoodRx coupon. Follow-up in 4 months. [facility] Medical History Impacted cerumen, bilateral Family history of abdominal aortic aneurysm Essential hypertension Erectile dysfunction Hidradenitis suppurativa Epidermal cyst Cholecystitis, acute with cholelithiasis Normocytic anemia Common bile duct (CBD) obstruction Gallstones Surgical History Hx of colonoscopy History of ERCP Hx of adenoidectomy Hx of inguinal hernia repair History of laparoscopic cholecystectomy Family History Father High cholesterol Heavy smoker ASHD (arteriosclerotic heart disease) Mother Cirrhosis Diabetes mellitus Brother Substance use disorder Mental health disorder Sister No problems noted. Son No problems noted. Daughter No problems noted. Maternal Uncle ASHD (arteriosclerotic heart disease) Paternal Aunt Rheumatoid arthritis Social History Housing: House Alcohol intake: never Comment: overflow obs Patient Tobacco Use Status: Current everyday Tobacco user e-Cigarette/Vaping Use: Never Used Second Hand Smoke Exposure: No Substance Use Type: Marijuana Advance Directives Date on File: 09/23/20 service: No Current occupational status: unemployed Cognitive needs: No Hearing needs: No Vision needs: Yes Review of Systems Const All systems reviewed & are unremarkable except as noted in HPI and below Reports no additional complaints Eyes Reports no additional complaints ENT Reports no additional complaints Card Reports no additional complaints Resp Reports no additional complaints GI Reports no additional complaints Reports as per HPI Musc Reports no additional complaints Skin/Breast Reports system reviewed and no additional complaints, except as documented Neuro Reports no additional complaints Psych Reports no additional complaints Endo Reports no additional complaints Monty/Lymph Reports no additional complaints Aller/Immun Reports no additional complaints Results Reviewed Results Reviewed: Date of Service: 01/27/24 EXAMINATION: US RETROPERITONEAL COMPLETE (RENAL) CLINICAL INFORMATION: Unspecified hydronephrosis. COMPARISON: CT abdomen and pelvis 01/01/2024. MRI MRCP 11/02/2020. Limited abdominal ultrasound 11/02/2020. TECHNIQUE: Real-time imaging of the kidneys and bladder. FINDINGS: RIGHT KIDNEY: 11.5 x 6.5 x 5.9 cm (SAG x AP x TRV). The kidney is normal in size, contour, and echogenicity. Renal cortical thickness is normal. No renal calculi or hydronephrosis. 1.2 x 1.0 x 0.9 cm simple exophytic cyst is seen in the upper to mid kidney. No imaging follow-up is recommended. LEFT KIDNEY: 10.9 x 6.0 x 5.4 cm (SAG x AP x TRV). The kidney is normal in size, contour, and echogenicity. Renal cortical thickness is normal. No calculi or focal parenchymal lesions. No hydronephrosis. BLADDER: Well distended and normal. Bilateral ureteral jets are demonstrated. Prevoid bladder volume is 352 mL. Postvoid bladder volume is 78 mL. Prostate volume 27 mL. IMPRESSION: 1. 1.2 cm simple exophytic cyst in the upper to mid right kidney. No imaging follow-up is recommended. 2. Normal appearance of the left kidney. 3. Moderate post void residual. Assessment & Plan Assessment & Plan (1) Erectile dysfunction: Code(s): N52.9 - Male erectile dysfunction, unspecified Qualifiers: Erectile dysfunction type: unspecified Qualified Code(s): N52.9 - Male erectile dysfunction, unspecified (2) History of kidney stones: Code(s): Z87.442 - Personal history of urinary calculi Plan Plan-diet modification to decrease risk for kidney stones. Viagra sent to his pharmacy with GoodRx coupon. Follow-up in 4 months. Medications: New sildenafil (Viagra) may use 1/2 - 1 tab administer 30 minutes to 2 hours before activity. [id number] [facility] [id number] Member [id number] 100 mg PO DAILY PRN 30 tabs 1RF sexual activity Patient Instructions: The patient had an opportunity to ask questions regarding treatment plan. All questions were answered. Imaging, Laboratory studies and physical exam results were discussed and reviewed in detail. No major barriers to understanding were identified. The patient expressed understanding and agreement with the above treatment plan. The patient is aware they should contact our office by phone for worsening of their current condition or the appearance of new symptoms. Compliance is encouraged with any medications and followup testing that is ordered. It is a privilege to be allowed the opportunity to participate in the urologic care of your patient. If you have any questions or concerns regarding treatment for the above conditions please do not hesitate to contact me. The office telephone contact is [phone]. This note is constructed in part using voice recognition software. While every effort has been made to ensure accuracy geothermal production manager errors may have been included. Yours sincerely, Candelaria Self MD Coding Level of Care Code Est Pt Level 4 (83385) Diagnoses Erectile dysfunction, unspecified erectile dysfunction type N52.9 Erectile dysfunction type: unspecified History of kidney stones Z87.442
== END 2024-02-12 14:32 | disposition home or self-care (01) ==
PROVIDERS: PCP Internal Medicine; Visit Provider Urology
DX: N52.9 Male erectile dysfunction, unspecified (principal); Z87.442 Personal history of urinary calculi; Z13.9 Encounter for screening, unspecified
CPT/HCPCS: 99214

== ENCOUNTER → 2024-02-12 13:49 | Outpatient (BNVA) | payer OTHER, SELFPAY | PROVIDERS: PCP Internal Medicine; Visit Provider Urology | DX: N52.9 Male erectile dysfunction, unspecified (principal); Z87.442 Personal history of urinary calculi | CPT/HCPCS: 81003; 99212 ==

== ENCOUNTER 2024-06-11 13:04 | Outpatient (AMB) | payer OTHER, SELFPAY ==
--- NOTE | 2024-06-11 13:11 | A.OFFVIS_ITS ---
Intake Visit Reasons: 4M F/U Intake Note: Patient is Present for Follow Up Kidney Stone/Erectile Dys Urology Medication: Sildenafil Antibiotic Allergies:None Blood Thinners:None Patient has not yet started sildenafil but is planning to start Business System Manager Required: No Accompanied by: Self / Same As Patient Allergies No Known Allergies Allergy (Verified 06/11/24 13:12) HPI Comments Details: 06/11/24--Here for fu, he states he has not used the Viagra as yet. Denies urinary symptoms. Discussed UA - persistent microscopic hematuria. He had urine cytology checked 07/2023 by his primary which was negative for malignant cells. Will repeat urine for cytology, follow up cystoscopy. The patient feels very anxious regarding the cystoscopy procedure. I discussed that I can prescribe Valium for him to take that morning and he should have his or someone bring him to the office. Review of chart: 02/12/2024-Antoine is here with his in follow-up post renal ultrasound. I have reviewed the renal ultrasound 01/27/24-results. Left kidney hydronephrosis is resolved no nephro or ureterolithiasis noted incidental 1.2 cm right renal cyst. I have discussed at length diet modification to decrease risk of forming more kidney stones. I have discussed low oxalate diet and specific foods to avoid including certain green leafy vegetables, chocalate, nuts, tea, beets, rubarb; low sodium, decreased use of animal protein and the importance of hydration drinking up to 2-2.5 liters of fluids and use of adding lemon to water to increase citrate in the diet. A pamphlet is also provided today. The patient complains of erectile dysfunction. He used Viagra about a year ago without success. He states that he has had some anxiety regarding problems with hidradenitis which affected his groin area. He is currently on Humira and has had improvement in these symptoms. I have discussed trying the Viagra again 100 mg half tab to 1 tab prior to intercourse. Discussed side effects including headache, visual transient blue haze, erection lasting longer than 4 hours he needs to seek immediate emergency attention. Plan-diet modification to decrease risk for kidney stones. Viagra sent to his pharmacy with Thor pinedapon. Follow-up in 4 months. 01/07/24--Antoine is a 53-year-old male who was in the emergency room [address] with left flank pain. I have reviewed chart he had a CT abdomen pelvis noting a 4 mm left ureteral distal stone with moderate hydronephrosis. The patient is currently asymptomatic. He thinks he passed the stone. --discussed follow-up renal ultrasound to confirm hydronephrosis resolved [facility] Medical History Impacted cerumen, bilateral Family history of abdominal aortic aneurysm Essential hypertension Erectile dysfunction Hidradenitis suppurativa Epidermal cyst Cholecystitis, acute with cholelithiasis Normocytic anemia Common bile duct (CBD) obstruction Gallstones Surgical History Hx of colonoscopy History of ERCP Hx of adenoidectomy Hx of inguinal hernia repair History of laparoscopic cholecystectomy Family History Father High cholesterol Heavy smoker ASHD (arteriosclerotic heart disease) Mother Cirrhosis Diabetes mellitus Brother Substance use disorder Mental health disorder Sister No problems noted. Son No problems noted. Daughter No problems noted. Maternal Uncle ASHD (arteriosclerotic heart disease) Paternal Aunt Rheumatoid arthritis Social History Housing: House Alcohol intake: never Comment: overflow obs Patient Tobacco Use Status: Current everyday Tobacco user e-Cigarette/Vaping Use: Never Used Second Hand Smoke Exposure: No Substance Use Type: Marijuana Advance Directives Date on File: 09/23/20 service: No Current occupational status: unemployed Cognitive needs: No Hearing needs: No Vision needs: Yes Review of Systems Const All systems reviewed & are unremarkable except as noted in HPI and below Reports no additional complaints Eyes Reports no additional complaints ENT Reports no additional complaints Card Reports no additional complaints Resp Reports no additional complaints GI Reports no additional complaints Reports as per HPI Musc Reports no additional complaints Skin/Breast Reports system reviewed and no additional complaints, except as documented Neuro Reports no additional complaints Psych Reports no additional complaints Endo Reports no additional complaints Monty/Lymph Reports no additional complaints Aller/Immun Reports no additional complaints Results AMB Urinalysis, Automated UA Leukoctes 0 Sera/uL Last Edit by KAHLIL Blanco on 06/11/24 13:20 UA Nitrite Negative Last Edit by Karin Grossman, RMA on 06/11/24 13:20 UA Urobilinogen 0.2 mg/dL Last Edit by Karin Grossman, RMA on 06/11/24 13:2 0 UA Protein 0 mg/dL Last Edit by Karin Grossman, RMA on 06/11/24 13:20 UA pH 6.0 Last Edit by Karin Grossman, RMA on 06/11/24 13:20 UA Blood 80 Maulik/uL Last Edit by Karin Grossman, RMA on 06/11/24 13:20 UA Specific [place] 1.020 Last Edit by Karin Grossman, RMA on 06/11/24 13: 20 UA Ketone Negative Last Edit by Karin Grossman, RMA on 06/11/24 13:20 UA Bilirubin 0 mg/dL Last Edit by Karin Grossman, RMA on 06/11/24 13:20 UA Glucose 0 mg/dL Last Edit by Karin Grossman, A on 06/11/24 13:20 Results Reviewed Results Reviewed: Laboratory Last Values Urine pH (Auto) 6.0 06/11/24 13:12 Specific [place] (Auto) 1.020 06/11/24 13:12 Urine Protein (Auto) 0 mg/dL 06/11/24 13:12 Glucose (UA)(Auto) 0 mg/dL 06/11/24 13:12 Urine Ketones (Auto) Negative 06/11/24 13:12 Urine Blood (Auto) 80 Maulik/uL 06/11/24 13:12 Urine Nitrite (Auto) Negative 06/11/24 13:12 Urine Bilirubin (Auto) 0 mg/dL 06/11/24 13:12 Urine Urobilinogen (Auto) 0.2 mg/dL 06/11/24 13:12 Leukocyte Esterase (Auto) 0 Sera/uL 06/11/24 13:12 Assessment & Plan Assessment & Plan (1) Erectile dysfunction: Code(s): N52.9 - Male erectile dysfunction, unspecified Category: Medical Qualifiers: Erectile dysfunction type: unspecified Qualified Code(s): N52.9 - Male erectile dysfunction, unspecified (2) History of kidney stones: Code(s): Z87.442 - Personal history of urinary calculi Category: Medical (3) Microscopic hematuria: Code(s): R31.29 - Other microscopic hematuria Category: Medical Plan Will send urine for cytology, follow up cystoscopy. The patient feels very anxious regarding the cystoscopy procedure. I discussed that I can prescribe Valium for him to take that morning and he should have his or someone bring him to the office. Orders: Orders AMB Urinalysis Automated Today Z13.9 - Encounter for screening, unspecified Patient Instructions: The patient had an opportunity to ask questions regarding treatment plan. The patient expressed understanding and agreement with the above treatment plan. The patient is aware they should contact our office by phone for worsening of their current condition or the appearance of new symptoms. Compliance is encouraged with any medications and followup testing that is ordered. It is a privilege to be allowed the opportunity to participate in the urologic care of your patient. If you have any questions or concerns regarding treatment for the above conditions please do not hesitate to contact me. The office telephone contact is [phone]. This note is constructed in part using voice recognition software. While every effort has been made to ensure accuracy c2 tactical analysis technician errors may have been included. Yours sincerely, Candelaria Self MD Coding Level of Care Code Est Pt Level 4 (63803) Diagnoses Erectile dysfunction, unspecified erectile dysfunction type N52.9 Erectile dysfunction type: unspecified History of kidney stones Z87.442 Microscopic hematuria R31.29
== END 2024-06-11 13:50 | disposition home or self-care (01) ==
PROVIDERS: PCP Internal Medicine; Visit Provider Urology
DX: N52.9 Male erectile dysfunction, unspecified (principal); Z87.442 Personal history of urinary calculi; R31.29 Other microscopic hematuria; Z13.9 Encounter for screening, unspecified
CPT/HCPCS: 99214

== ENCOUNTER 2024-06-11 13:09 | Outpatient (REF) | payer OTHER, SELFPAY ==
[2024-06-11 16:43] LABS: Urine Cytology See Pathology rpt
== END 2024-06-11 13:10 | disposition home or self-care (01) ==
LOC: HO.LAB 13:09
PROVIDERS: PCP Internal Medicine; Visit Provider Urology
DX: R31.29 Other microscopic hematuria (principal); N52.9 Male erectile dysfunction, unspecified; Z87.442 Personal history of urinary calculi
CPT/HCPCS: 81003; 88112; 99212

== ENCOUNTER 2024-07-22 14:25 | Outpatient (AMB) | payer OTHER, SELFPAY ==
--- NOTE | 2024-07-22 14:35 | MHC.OFFVIS ---
Intake Visit Reasons: cysto Intake Note: Patient is Present for Microscopic Hematuria Patient declined office cystoscopy Urology Med: Sildenafil Antibiotic Allergy: None Blood Thinner: None Director Supply Required: No Activities Leader: Activities Leader Present Accompanied by: Spouse Allergies No Known Allergies Allergy (Verified 07/22/24 14:46) HPI Comments Details: 07/22/2024--Antoine is a 54-year-old male with history of nephrolithiasis. Discussed further evaluation with cystoscopy. History of anxiety.he patient feels very anxious regarding the cystoscopy procedure in the office. We will schedule outpatient cystoscopy Review of chart: 06/11/24--Here for fu, he states he has not used the Viagra as yet. Denies urinary symptoms. Discussed UA - persistent microscopic hematuria. He had urine cytology checked 07/2023 by his primary which was negative for malignant cells. Will repeat urine for cytology, follow up cystoscopy. The patient feels very anxious regarding the cystoscopy procedure. I discussed that I can prescribe Valium for him to take that morning and he should have his or someone bring him to the office. 02/12/2024-Antoine is here with his in follow-up post renal ultrasound. I have reviewed the renal ultrasound 01/27/24-results. Left kidney hydronephrosis is resolved no nephro or ureterolithiasis noted incidental 1.2 cm right renal cyst. I have discussed at length diet modification to decrease risk of forming more kidney stones. I have discussed low oxalate diet and specific foods to avoid including certain green leafy vegetables, chocalate, nuts, tea, beets, rubarb; low sodium, decreased use of animal protein and the importance of hydration drinking up to 2-2.5 liters of fluids and use of adding lemon to water to increase citrate in the diet. A pamphlet is also provided today. The patient complains of erectile dysfunction. He used Viagra about a year ago without success. He states that he has had some anxiety regarding problems with hidradenitis which affected his groin area. He is currently on Humira and has had improvement in these symptoms. I have discussed trying the Viagra again 100 mg half tab to 1 tab prior to intercourse. Discussed side effects including headache, visual transient blue haze, erection lasting longer than 4 hours he needs to seek immediate emergency attention. Plan-diet modification to decrease risk for kidney stones. Viagra sent to his pharmacy with GoodRx coupon. Follow-up in 4 months. 01/07/24--Antoine is a 53-year-old male who was in the emergency room [address] with left flank pain. I have reviewed chart he had a CT abdomen pelvis noting a 4 mm left ureteral distal stone with moderate hydronephrosis. The patient is currently asymptomatic. He thinks he passed the stone. --discussed follow-up renal ultrasound to confirm hydronephrosis resolved [facility] Medical History Impacted cerumen, bilateral Family history of abdominal aortic aneurysm Essential hypertension Erectile dysfunction Hidradenitis suppurativa Epidermal cyst Cholecystitis, acute with cholelithiasis Normocytic anemia Common bile duct (CBD) obstruction Gallstones Surgical History Hx of colonoscopy History of ERCP Hx of adenoidectomy Hx of inguinal hernia repair History of laparoscopic cholecystectomy Family History Father High cholesterol Heavy smoker ASHD (arteriosclerotic heart disease) Mother Cirrhosis Diabetes mellitus Brother Substance use disorder Mental health disorder Sister No problems noted. Son No problems noted. Daughter No problems noted. Maternal Uncle ASHD (arteriosclerotic heart disease) Paternal Aunt Rheumatoid arthritis Social History Housing: House Alcohol intake: never Comment: overflow obs Patient Tobacco Use Status: Current everyday Tobacco user e-Cigarette/Vaping Use: Never Used Second Hand Smoke Exposure: No Substance Use Type: Marijuana Advance Directives Date on File: 09/23/20 service: No Current occupational status: unemployed Cognitive needs: No Hearing needs: No Vision needs: Yes Review of Systems Const All systems reviewed & are unremarkable except as noted in HPI and below Reports no additional complaints Eyes Reports no additional complaints ENT Reports no additional complaints Card Reports no additional complaints Resp Reports no additional complaints GI Reports no additional complaints Reports as per HPI Musc Reports no additional complaints Skin/Breast Reports system reviewed and no additional complaints, except as documented Neuro Reports no additional complaints Psych Reports no additional complaints Endo Reports no additional complaints Monty/Lymph Reports no additional complaints Aller/Immun Reports no additional complaints Results AMB Urinalysis, Automated UA Leukoctes 0 Sera/uL Last Edit by Karin Grossman, RMA on 07/22/24 15:00 UA Nitrite Negative Last Edit by Karin Grossman, RMA on 07/22/24 15:00 UA Urobilinogen 0.2 mg/dL Last Edit by Karin Grossman, RMA on 07/22/24 15:00 UA Protein 0 mg/dL Last Edit by Karin Grossman, RMA on 07/22/24 15:00 UA pH 7.0 Last Edit by Karin Grossman, RMA on 07/22/24 15:00 UA Blood 200 Maulik/uL Last Edit by Karin Grossman, RMA on 07/22/24 15:00 UA Specific [place] 1.015 Last Edit by Karin Grossman, RMA on 07/22/24 15:00 UA Ketone Negative Last Edit by Karin Grossman, RMA on 07/22/24 15:00 UA Bilirubin 0 mg/dL Last Edit by Karin Grossman, RMA on 07/22/24 15:00 UA Glucose 0 mg/dL Last Edit by Karin Grossman, RMA on 07/22/24 15:00 Results Reviewed Results Reviewed: Laboratory Last Values Urine pH (Auto) 7.0 07/22/24 14:47 Specific [place] (Auto) 1.015 07/22/24 14:47 Urine Protein (Auto) 0 mg/dL 07/22/24 14:47 Glucose (UA)(Auto) 0 mg/dL 07/22/24 14:47 Urine Ketones (Auto) Negative 07/22/24 14:47 Urine Blood (Auto) 200 Maulik/uL 07/22/24 14:47 Urine Nitrite (Auto) Negative 07/22/24 14:47 Urine Bilirubin (Auto) 0 mg/dL 07/22/24 14:47 Urine Urobilinogen (Auto) 0.2 mg/dL 07/22/24 14:47 Leukocyte Esterase (Auto) 0 Sera/uL 07/22/24 14:47 Assessment & Plan Assessment & Plan (1) Erectile dysfunction: Code(s): N52.9 - Male erectile dysfunction, unspecified Category: Medical Qualifiers: Erectile dysfunction type: unspecified Qualified Code(s): N52.9 - Male erectile dysfunction, unspecified (2) History of kidney stones: Code(s): Z87.442 - Personal history of urinary calculi Category: Medical (3) Microscopic hematuria: Code(s): R31.29 - Other microscopic hematuria Category: Medical Plan Outpatient cystoscopy Orders: Orders AMB Urinalysis Automated 07/22/24 Z13.9 - Encounter for screening, unspecified Patient Instructions: The patient had an opportunity to ask questions regarding treatment plan. The patient expressed understanding and agreement with the above treatment plan. The patient is aware they should contact our office by phone for worsening of their current condition or the appearance of new symptoms. Compliance is encouraged with any medications and followup testing that is ordered. It is a privilege to be allowed the opportunity to participate in the urologic care of your patient. If you have any questions or concerns regarding treatment for the above conditions please do not hesitate to contact me. The office telephone contact is [phone]. This note is constructed in part using voice recognition software. While every effort has been made to ensure accuracy civil celebrant errors may have been included. Yours sincerely, Candelaria Self MD Coding Level of Care Code Est Pt Level 3 (64013) Diagnoses Erectile dysfunction, unspecified erectile dysfunction type N52.9 Erectile dysfunction type: unspecified History of kidney stones Z87.442 Microscopic hematuria R31.29
== END 2024-07-22 15:31 | disposition home or self-care (01) ==
PROVIDERS: PCP Internal Medicine; Visit Provider Urology
DX: N52.9 Male erectile dysfunction, unspecified (principal); Z87.442 Personal history of urinary calculi; R31.29 Other microscopic hematuria
CPT/HCPCS: 99213

== ENCOUNTER → 2024-07-22 14:25 | Outpatient (BNVA) | payer OTHER, SELFPAY | PROVIDERS: PCP Internal Medicine; Visit Provider Urology | DX: N52.9 Male erectile dysfunction, unspecified (principal); R31.29 Other microscopic hematuria; Z87.442 Personal history of urinary calculi | CPT/HCPCS: 81003; 99212 ==

== ENCOUNTER 2024-09-04 13:58 | Outpatient (AMB) | payer OTHER, SELFPAY ==
[2024-09-04 14:04] VITALS: BP 122/82; PULSE 78; O2SAT 98; BMI 29.0
--- NOTE | 2024-09-04 14:04 | A.OFFPC_ITS ---
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 Patient of Dr. Borja. Pmhx significant for HTN, ED, Hematuria, HS, and Anemia. He is going to have cystoscopy done on 09/15/24 due to Microscopic hematuria. Pt was informed that he needed Lab work done before the procedure, but he does not remember what labs. Colonoscopy done 02/2023. Negative. [facility] Medical History (Updated 09/04/24 @ 14:50 by Heather Chavez NP) Encounter for routine laboratory testing Impacted cerumen, bilateral Family history of abdominal aortic aneurysm Essential hypertension Erectile dysfunction Hidradenitis suppurativa Epidermal cyst Cholecystitis, acute with cholelithiasis Normocytic anemia Common bile duct (CBD) obstruction Gallstones Surgical History Hx of colonoscopy History of ERCP Hx of adenoidectomy Hx of inguinal hernia repair History of laparoscopic cholecystectomy Family History Father High cholesterol Heavy smoker ASHD (arteriosclerotic heart disease) Mother Cirrhosis Diabetes mellitus Brother Substance use disorder Mental health disorder Sister No problems noted. Son No problems noted. Daughter No problems noted. Maternal Uncle ASHD (arteriosclerotic heart disease) Paternal Aunt Rheumatoid arthritis Social History Housing: House Alcohol intake: never Comment: overflow obs Patient Tobacco Use Status: Current everyday Tobacco user e-Cigarette/Vaping Use: Never Used Second Hand Smoke Exposure: No Substance Use Type: Marijuana Advance Directives Date on File: 09/23/20 service: No Current occupational status: unemployed Cognitive needs: No Hearing needs: No Vision needs: Yes Questionnaire PHQ-9 Over the last 2 weeks, how often have you been bothered by any of the following problems? 1. Little interest or pleasure in doing things: not at all 2. Feeling down, depressed, or hopeless: not at all 3. Trouble falling or staying asleep, or sleeping too much: not at all 4. Feeling tired or having little energy: not at all 5. Poor appetite or overeating: not at all 6. Feeling bad about yourself - or that you are a failure or have let yourself or your family down: not at all 7. Trouble concentrating on things, such as reading the newspaper or watching television: not at all 8. Moving or speaking so slowly that other people could have noticed. Or the opposite - being so fidgety or restless that you have been moving around a lot more than usual: not at all 9. Thoughts that you would be better off or of hurting yourself in some way: not at all Total score: 0 Depression Screening Interpretation: Negative Depression Screening Done: Yes 77507 - PHQ-9 Billing: Yes Source: Developed by Drs. Antoine Owens, Aishwarya Hickey, Rick Lovell and colleagues, with an educational gustabo from [employer]. Thrive Questionnaire Date Thrive assessed: 09/01/24 I am a: Patient What is your living situation today?: I have a place to live, but I am worried about losing it in the future Within the past 12 months, did the food you bought not last and you didn't have the money to get more?: Sometimes True Within the past 12 months, did you worry whether your food would run out before you got money to buy more?: Sometimes True Do you have trouble paying for medicines?: Yes Do you have trouble getting transportation to medical appointments?: No Do you have trouble paying your heating and electricity bill?: Yes Do you have trouble taking care of your child, family member or friend?: No Do you have trouble with day-to-day activities such as bathing, preparing meals, shopping, managing finances, etc.?: No Are you currently unemployed and looking for a job?: No Are you interested in more education?: No Please select the resources that you would like help with: None Currently or been in a relationship where the following occur: No concerns reported THRIVE Score: 4 AUDIT C Alcohol Use Questionnaire (AUDIT-C) 1. How often do you have a drink containing alcohol?: Monthly or less 2. How many drinks containing alcohol do you have on a typical day when you are drinking?: 3 or 4 3. How often do you have six or more drinks on one occasion?: Less than monthly Total Score: 3 Score Reviewed/Action Taken: Yes ELLA-7 AMB Questionnaire ELLA-7 Date ELLA - 7 assessed: 09/04/24 Feeling nervous, anxious, or on edge: 1 = Several days Not being able to stop or control worryin = Several days Worrying too much about different things: 1 = Several days Trouble relaxin = Several days Being so restless that it is hard to sit still: 0 = Not at all Becoming easily annoyed or irritable: 1 = Several days Feeling afraid as if something awful might happen: 1 = Several days Total ELLA-7 score (0-4 normal; 5-9 mild; 10-14 moderate; 15-21 severe): 6 Source: Developed by Drs. Antoine Owens, Aishwarya Hickey, Rick Lovell and colleagues, with an educational gustabo from [employer]. ELLA-7 Assessment Billing ELLA-7 Assessment Tool: ELLA-7 Assessment 17586 Review of Systems Const All systems reviewed & are unremarkable except as noted in HPI and below Physical exam (Primary Care) Vital Signs: Last Vital Signs Pulse 78 09/04/24 14:04 BP 122/82 09/04/24 14:04 Pulse Ox 98 09/04/24 14:04 BMI result Body Mass Index 29.0 Tobacco/Smoking Status: Tobacco use Status Tobacco use date assessed 09/04/24 09/04/24 14:10 Patient Tobacco Use Status Current everyday Tobacco 09/04/24 14:10 e-Cigarette/Vaping Use Never Used 09/04/24 14:10 PHQ-9: PHQ-9 Score PHQ-9: Total score 0 09/04/24 14:51 Depression Screening Interpretation: Negative Thrive Assessment: Date of Thrive Assessment Date Thrive assessed 09/01/24 09/04/24 14:10 Currently or been in a relationship where the following occur: No concerns reported Const General: cooperative, comfortable and no acute distress Nutritional Appearance: overweight Orientation/consciousness: patient oriented x3 HENMT Head: Yes normocephalic Ears: external ears normal and TM's normal bilaterally General nose exam: Normal external nose present Face and sinus: Yes sinuses nontender Mouth: moist mucous membranes Throat: Yes tonsils normal and Yes uvula midline Eyes Pupils: Equal, round and reactive pupils present EOM: EOMs intact bilaterally Neck Neck: Yes full ROM and Yes no lymphadenopathy Resp Effort & Inspection: normal respiratory effort and able to speak in complete sentences Auscultation: clear to auscultation bilaterally, no crackles, no rales, no rhonchi and no wheezes Cardio Heart sounds: S1 normal heart sound present and S2 normal heart sound present GI Inspection: Yes normal to inspection Palpation (GI): Soft to palpation, not firm, nontender, no guarding and not rigid Auscultation: normal bowel sounds Rectal Exam - Male: Yes deferred General: Yes no CVA tenderness Back/Spine/Pelvis Back: no CVA tenderness Skin General skin exam: no rashes or lesions noted Neuro General: patient oriented x3, gait normal and moves all extremities Cranial nerves: Yes Equal, round and reactive pupils present Motor exam (neuro): 5/5 motor strength present throughout Extrem General: Yes full ROM Psych Speech and movement: Normal speech and movement present Coding Level of Care Code Est Pt Prev Care 40-64y(77396) Diagnoses Essential hypertension I10 Erectile dysfunction, unspecified erectile dysfunction type N52.9 Erectile dysfunction type: unspecified Hidradenitis suppurativa L73.2 Microscopic hematuria R31.29 Encounter for routine adult health examination without abnormal findings Z00.00 Additional Codes ELLA-7 Assessment Billing - ELLA-7 Assessment Tool: ELLA-7 Assessment 56438 ([id number]) Time Spent (min) 30 Assessment & Plan Assessment & Plan (1) Essential hypertension: Code(s): I10 - Essential (primary) hypertension Category: Medical Plan: Continue on current regiment. (2) Erectile dysfunction: Code(s): N52.9 - Male erectile dysfunction, unspecified Category: Medical Qualifiers: Erectile dysfunction type: unspecified Qualified Code(s): N52.9 - Male erectile dysfunction, unspecified Plan: Continue on current regiment (3) Hidradenitis suppurativa: Comment: right buttock Code(s): L73.2 - Hidradenitis suppurativa Category: Medical Plan: Managed by Natalya Dallas. (4) Microscopic hematuria: Code(s): R31.29 - Other microscopic hematuria Category: Medical Plan: Scheduled to have Cystoscopy 09/15/24 (5) Encounter for routine adult health examination without abnormal findings: Code(s): Z00.00 - Encounter for general adult medical examination without abnormal findings Plan: Examination WNL. Orders: Orders Complete Blood Count Auto Diff Today Z01.89 - Encounter for other specified special examinations Comprehensive Met. Panel Today Z01.89 - Encounter for other specified special examinations Lipid Panel Today Z01.89 - Encounter for other specified special examinations TSH reflex Free T4 Today Z01.89 - Encounter for other specified special examinations Hemoglobin A1c Today Z01.89 - Encounter for other specified special examinations Medications: Discontinued ketorolac Patient received Toradol in the emergency room Discontinued Reason: Patient Completed Course 10 mg PO Q6H 5 days PRN 20 tabs 0RF pain
== END 2024-09-04 15:08 | disposition home or self-care (01) ==
LOC: HO.HMCC 13:59
PROVIDERS: PCP Internal Medicine; Visit Provider Nurse Practitioner Family
DX: I10 Essential (primary) hypertension (principal); N52.9 Male erectile dysfunction, unspecified; L73.2 Hidradenitis suppurativa; R31.29 Other microscopic hematuria; Z00.00 Encounter for general adult medical examination without abnormal findings

== ENCOUNTER → 2024-09-04 13:58 | Outpatient (BNVA) | payer OTHER, SELFPAY | PROVIDERS: PCP Internal Medicine; Visit Provider Nurse Practitioner Family | DX: Z00.01 Encounter for general adult medical examination with abnormal findings (principal); I10 Essential (primary) hypertension; N52.9 Male erectile dysfunction, unspecified; L73.2 Hidradenitis suppurativa; R31.29 Other microscopic hematuria | CPT/HCPCS: 96127; 99396 ==

== ENCOUNTER 2024-09-15 06:12 | Day surgery (SDC) | payer OTHER, SELFPAY ==
[2024-09-15] VITALS (8 sets, daily range): BP systolic 113–143; BP diastolic 78–102; PULSE 63–90; RESP 16–20; TEMP 36.1–36.3; O2SAT 97–99; BMI 29.1
[2024-09-15] MEDS: Lactated Ringers 1,000 ML 50 ML IVCONT (06:57)
--- NOTE | 2024-09-15 07:22 | P.CONAN_ITS ---
HPI - Anesthesia Eval Consult details Narrative: for cysto, bladder bx PMFSH Active Problems Active Problems: All Active Problems Encounter for routine laboratory testing (Acute) Microscopic hematuria (Acute) History of kidney stones (Acute) Hydronephrosis (Acute) Family history of abdominal aortic aneurysm (Acute) Essential hypertension (Acute) Erectile dysfunction (Acute) Hidradenitis suppurativa (Acute) Epidermal cyst (Acute) Normocytic anemia (Acute) Past Medical History Medical History (Updated 09/04/24 @ 14:50 by Heather Chavez NP) Encounter for routine laboratory testing Impacted cerumen, bilateral Family history of abdominal aortic aneurysm Essential hypertension Erectile dysfunction Hidradenitis suppurativa Epidermal cyst Cholecystitis, acute with cholelithiasis Normocytic anemia Common bile duct (CBD) obstruction Gallstones Family History Family History Father High cholesterol Heavy smoker ASHD (arteriosclerotic heart disease) Mother Cirrhosis Diabetes mellitus Brother Substance use disorder Mental health disorder Sister No problems noted. Son No problems noted. Daughter No problems noted. Maternal Uncle ASHD (arteriosclerotic heart disease) Paternal Aunt Rheumatoid arthritis Family history of problems with anesthesia: No Surgical History Surgical History Hx of colonoscopy History of ERCP Hx of adenoidectomy Hx of inguinal hernia repair History of laparoscopic cholecystectomy History of Problems with Anesthesia: No Social History Social History Housing: House Alcohol intake: never Comment: overflow obs Patient Tobacco Use Status: Former Tobacco user e-Cigarette/Vaping Use: Never Used Second Hand Smoke Exposure: No Substance Use Type: Marijuana Have you been hit, kicked, punched, or otherwise hurt by someone within the past year? If so, by whom?: No Are you DNR?: No Advance Directives: No Advance Directives Information Provided: Yes Advance Directives Date on File: 09/23/20 service: No Current occupational status: unemployed Cognitive needs: No Hearing needs: No Vision needs: Yes Meds Allergies Allergy/AdvReac Type Severity Reaction Status Date / Time No Known Allergies Allergy Verified 09/04/24 14:05 Active Medications: Current Medications Lactated Ringer's (Lr) 1,000 mls @ 50 mls/hr IVCONT .Q20H SARAH Last Admin: 09/15/24 06:57 Dose: 50 mls/hr Exam Height,Weight and Vital Signs: Height 5 ft 8 in Weight 86.727 kg Last Vital Signs Temp 97.4 F 09/15/24 06:17 Pulse 82 09/15/24 06:17 Resp 20 09/15/24 06:17 BP 135/78 09/15/24 06:17 Pulse Ox 97 09/15/24 06:17 O2 Del Method Room Air 09/15/24 06:17 Airway Mallampati Class: I TM Dist: <=3cm Neck ROM: Full Loose/Missing/Broken Teeth: Yes, Upper and Lower Heart: ok Lungs: ok Assessment and Plan Assessment Anesthesia Assessment: Anesthesia Plan Discussed and Chart Reviewed Final Anesthetic Review Family History of Problems with Anesthesia: No History of Problems with Anesthesia: No NPO: Yes ASA Class: II Final Preanesthetic Review: No Changes in Pt Med Stat, Meds/Allgs Chart Reviewed, Consent Obtained/Reviewed and Anes Risks/Benef Reviewed Patient Risk: Low Procedure Risk: Low Anesthetic Plan Anesthetic Plan: GA and Agree w/ Assess. and Plan Disposition: Standard PACU
--- NOTE | 2024-09-15 07:27 | MHC.SHP ---
Pre-Procedural Eval Section A - 24 Hr Update-Section A only Date of Service: 09/15/24 The patient is an INPATIENT: No The patient has been examined within 24 hours of the surgical procedure. The History & Physical has been completed within 30 days and I have reviewed it.: Yes Section B - Complete if H&P > 30 days Chief Complaint: Other microscopic hematuria Allergies: Allergies Allergy/AdvReac Type Severity Reaction Status Date / Time No Known Allergies Allergy Verified 09/04/24 14:05 Plan Diagnosis/Plan: Unchanged I have reviewed the history and physical and performed a pertinent physical examination on my patient. No changes have occurred unless specified. Cystoscopy. Discussed risks to include but not limited to, blood in the urine, burning with urination, urgency. Time Spent With Patient Time: Total time managing care of this patient today ____ minutes.
--- NOTE | 2024-09-15 08:24 | W.PM.OPN ---
Operative Note Operative Note Date of Service: 09/15/24 Narrative: PREOP DIAGNOSIS: Microscopic hematuria POSTOP DIAGNOSIS: Microscopic hematuria PROCEDURE: CYSTOSCOPY SURGEON: Candelaria Self MD ANESTHESIA: General Findings: Bladder wall thickening, Tiny bladder calculi. Details of procedure: The patient was brought into the operating room placed on the OR table in supine position. 2 g of Ancef IV. General anesthesia was administered. The patient was repositioned into lithotomy position, prepped and draped in the usual sterile fashion. Time-out was done per protocol. A 22 fr cystoscope was placed transurethrally into the bladder. The bulbous urethra was within normal limits. Prosthetic urethra noted prominent median lobe. The right and left ureteral orifices were visualized in normal position. The entire bladder was visualized. Tiny bladder calculi was noted and mild to moderate trabeculations. There were no suspicious bladder lesions seen. The bladder calculi were flushed out of the bladder. The cystoscope was removed. 2% lidocaine urojet was passed transurethrally into the bladder. The patient was brought out of anesthesia and taken to recovery in stable condition. Complications: None EBL: Minimal Drains: None
[2024-09-15] MEDS: Phenazopyridine HCL 200 MG TABLET PO (08:36)
== END 2024-09-15 09:41 | disposition home or self-care (01) ==
PROVIDERS: PCP Internal Medicine; Visit Provider Urology
PROC: (CPT 52000; principal; 2024-09-15 07:30)
DX: R31.29 Other microscopic hematuria (principal); N21.0 Calculus in bladder; N32.89 Other specified disorders of bladder; N52.9 Male erectile dysfunction, unspecified; F41.9 Anxiety disorder, unspecified; Z87.442 Personal history of urinary calculi; I10 Essential (primary) hypertension; D64.9 Anemia, unspecified; Z90.49 Acquired absence of other specified parts of digestive tract; Z79.899 Other long term (current) drug therapy; Z98.890 Other specified postprocedural states; Z56.0 Unemployment, unspecified
CPT/HCPCS: 52000; J0690; J2003; J2704; J3010

== ENCOUNTER → 2024-09-15 06:12 | Outpatient (BNV) | payer OTHER, SELFPAY | PROVIDERS: PCP Internal Medicine; Visit Provider Urology | DX: R31.29 Other microscopic hematuria (principal) | CPT/HCPCS: 52000 ==

== ENCOUNTER 2024-10-14 15:24 | Outpatient (AMB) | payer OTHER, SELFPAY ==
--- NOTE | 2024-10-14 15:33 | MHC.OFFVIS ---
Intake Visit Reasons: follow-up outpatient cystoscopy Intake Note: Patient is present for follow up cystoscopy Urology Med: None Antibiotic Allergy: None Blood Thinner: None Patient Symptoms: Patient states he has not seen blood in the urine, he denies any burning with urination or any urgency Volleyball Commentator Required: No Allergies No Known Allergies Allergy (Verified 10/14/24 15:34) HPI Comments Details: 07/22/2024--Antoine is a 54-year-old male with history of nephrolithiasis. Discussed further evaluation with cystoscopy. History of anxiety.he patient feels very anxious regarding the cystoscopy procedure in the office. We will schedule outpatient cystoscopy Review of chart: 06/11/24--Here for fu, he states he has not used the Viagra as yet. Denies urinary symptoms. Discussed UA - persistent microscopic hematuria. He had urine cytology checked 07/2023 by his primary which was negative for malignant cells. Will repeat urine for cytology, follow up cystoscopy. The patient feels very anxious regarding the cystoscopy procedure. I discussed that I can prescribe Valium for him to take that morning and he should have his or someone bring him to the office. 02/12/2024-Antoine is here with his in follow-up post renal ultrasound. I have reviewed the renal ultrasound 01/27/24-results. Left kidney hydronephrosis is resolved no nephro or ureterolithiasis noted incidental 1.2 cm right renal cyst. I have discussed at length diet modification to decrease risk of forming more kidney stones. I have discussed low oxalate diet and specific foods to avoid including certain green leafy vegetables, chocalate, nuts, tea, beets, rubarb; low sodium, decreased use of animal protein and the importance of hydration drinking up to 2-2.5 liters of fluids and use of adding lemon to water to increase citrate in the diet. A pamphlet is also provided today. The patient complains of erectile dysfunction. He used Viagra about a year ago without success. He states that he has had some anxiety regarding problems with hidradenitis which affected his groin area. He is currently on Humira and has had improvement in these symptoms. I have discussed trying the Viagra again 100 mg half tab to 1 tab prior to intercourse. Discussed side effects including headache, visual transient blue haze, erection lasting longer than 4 hours he needs to seek immediate emergency attention. Plan-diet modification to decrease risk for kidney stones. Norman sent to his pharmacy with GoodRx coupon. Follow-up in 4 months. 01/07/24--Antoine is a 53-year-old male who was in the emergency room [id number] with left flank pain. I have reviewed chart he had a CT abdomen pelvis noting a 4 mm left ureteral distal stone with moderate hydronephrosis. The patient is currently asymptomatic. He thinks he passed the stone. --discussed follow-up renal ultrasound to confirm hydronephrosis resolved [facility] Medical History Encounter for routine laboratory testing Impacted cerumen, bilateral Family history of abdominal aortic aneurysm Essential hypertension Erectile dysfunction Hidradenitis suppurativa Epidermal cyst Cholecystitis, acute with cholelithiasis Normocytic anemia Common bile duct (CBD) obstruction Gallstones Surgical History Hx of colonoscopy History of ERCP Hx of adenoidectomy Hx of inguinal hernia repair History of laparoscopic cholecystectomy Family History Father High cholesterol Heavy smoker ASHD (arteriosclerotic heart disease) Mother Cirrhosis Diabetes mellitus Brother Substance use disorder Mental health disorder Aortic aneurysm Bicuspid aortic valve Sister No problems noted. Son No problems noted. Daughter No problems noted. Maternal Uncle ASHD (arteriosclerotic heart disease) Paternal Aunt Rheumatoid arthritis Brother Bicuspid aortic valve Aortic aneurysm Brother Aortic aneurysm Social History Housing: House Alcohol intake: never Comment: overflow obs Patient Tobacco Use Status: Former Tobacco user e-Cigarette/Vaping Use: Never Used Second Hand Smoke Exposure: No Substance Use Type: Marijuana Advance Directives Date on File: 09/23/20 service: No Current occupational status: unemployed Cognitive needs: No Hearing needs: No Vision needs: Yes Review of Systems Const All systems reviewed & are unremarkable except as noted in HPI and below Reports no additional complaints Eyes Reports no additional complaints ENT Reports no additional complaints Card Reports no additional complaints Resp Reports no additional complaints GI Reports no additional complaints Reports as per HPI Musc Reports no additional complaints Skin/Breast Reports system reviewed and no additional complaints, except as documented Neuro Reports no additional complaints Psych Reports no additional complaints Endo Reports no additional complaints Monty/Lymph Reports no additional complaints Aller/Immun Reports no additional complaints Results AMB Urinalysis, Automated UA Leukoctes 0 Sera/uL Last Edit by Nessa Robles, [place] on 10/14/24 15:42 UA Nitrite Negative Last Edit by Nessa Robles, COIN BOX COLLECTOR on 10/14/24 15:42 UA Urobilinogen 0.2 mg/dL Last Edit by Nessa Robles, COIN BOX COLLECTOR on 10/14/24 15:42 UA Protein 15 mg/dL Last Edit by Nessa Robles, COIN BOX COLLECTOR on 10/14/24 15:42 UA pH 6.0 Last Edit by Nessa Robles, COIN BOX COLLECTOR on 10/14/24 15:42 UA Blood 80 Maulik/uL Last Edit by Nessa Robles, COIN BOX COLLECTOR on 10/14/24 15:42 UA Specific [place] 1.025 Last Edit by Nessa Robles, COIN BOX COLLECTOR on 10/14/24 15:42 UA Ketone Negative Last Edit by Nessa Robles, COIN BOX COLLECTOR on 10/14/24 15:42 UA Bilirubin 0 mg/dL Last Edit by Nessa Robles, COIN BOX COLLECTOR on 10/14/24 15:42 UA Glucose 0 mg/dL Last Edit by Nessa Robles, COIN BOX COLLECTOR on 10/14/24 15:42 Results Reviewed Results Reviewed: Laboratory Last Values Urine pH (Auto) 6.0 10/14/24 15:36 Specific [place] (Auto) 1.025 10/14/24 15:36 Urine Protein (Auto) 15 mg/dL 10/14/24 15:36 Glucose (UA)(Auto) 0 mg/dL 10/14/24 15:36 Urine Ketones (Auto) Negative 10/14/24 15:36 Urine Blood (Auto) 80 Maulik/uL 10/14/24 15:36 Urine Nitrite (Auto) Negative 10/14/24 15:36 Urine Bilirubin (Auto) 0 mg/dL 10/14/24 15:36 Urine Urobilinogen (Auto) 0.2 mg/dL 10/14/24 15:36 Leukocyte Esterase (Auto) 0 Sera/uL 10/14/24 15:36 Date of Service: 01/27/24 EXAMINATION: US RETROPERITONEAL COMPLETE (RENAL) CLINICAL INFORMATION: Unspecified hydronephrosis. COMPARISON: CT abdomen and pelvis 01/01/2024. MRI MRCP 11/02/2020. Limited abdominal ultrasound 11/02/2020. TECHNIQUE: Real-time imaging of the kidneys and bladder. FINDINGS: RIGHT KIDNEY: 11.5 x 6.5 x 5.9 cm (SAG x AP x TRV). The kidney is normal in size, contour, and echogenicity. Renal cortical thickness is normal. No renal calculi or hydronephrosis. 1.2 x 1.0 x 0.9 cm simple exophytic cyst is seen in the upper to mid kidney. No imaging follow-up is recommended. LEFT KIDNEY: 10.9 x 6.0 x 5.4 cm (SAG x AP x TRV). The kidney is normal in size, contour, and echogenicity. Renal cortical thickness is normal. No calculi or focal parenchymal lesions. No hydronephrosis. BLADDER: Well distended and normal. Bilateral ureteral jets are demonstrated. Prevoid bladder volume is 352 mL. Postvoid bladder volume is 78 mL. Prostate volume 27 mL. IMPRESSION: 1. 1.2 cm simple exophytic cyst in the upper to mid right kidney. No imaging follow-up is recommended. 2. Normal appearance of the left kidney. 3. Moderate post void residual. Assessment & Plan Assessment & Plan (1) Erectile dysfunction: Code(s): N52.9 - Male erectile dysfunction, unspecified Category: Medical Qualifiers: Erectile dysfunction type: unspecified Qualified Code(s): N52.9 - Male erectile dysfunction, unspecified (2) History of kidney stones: Code(s): Z87.442 - Personal history of urinary calculi Category: Medical (3) Microscopic hematuria: Code(s): R31.29 - Other microscopic hematuria Category: Medical Orders: Orders AMB Urinalysis Automated Today Z13.9 - Encounter for screening, unspecified Medications: New tamsulosin (Flomax) 0.4 mg PO BEDTIME 30 caps 7RF Patient Instructions: The patient had an opportunity to ask questions regarding treatment plan. The patient expressed understanding and agreement with the above treatment plan. The patient is aware they should contact our office by phone for worsening of their current condition or the appearance of new symptoms. Compliance is encouraged with any medications and followup testing that is ordered. It is a privilege to be allowed the opportunity to participate in the urologic care of your patient. If you have any questions or concerns regarding treatment for the above conditions please do not hesitate to contact me. The office telephone contact is [phone]. This note is constructed in part using voice recognition software. While every effort has been made to ensure accuracy insurance premium auditor errors may have been included. Yours sincerely, Candelaria Self MD Coding Diagnoses Erectile dysfunction, unspecified erectile dysfunction type N52.9 Erectile dysfunction type: unspecified History of kidney stones Z87.442 Microscopic hematuria R31.29
== END 2024-10-14 16:13 | disposition home or self-care (01) ==
PROVIDERS: PCP Internal Medicine; Visit Provider Urology
DX: Z13.9 Encounter for screening, unspecified (principal)

== ENCOUNTER → 2024-10-14 15:24 | Outpatient (BNVA) | payer OTHER, SELFPAY | PROVIDERS: PCP Internal Medicine; Visit Provider Urology | DX: R31.29 Other microscopic hematuria (principal); N52.9 Male erectile dysfunction, unspecified; N40.1 Benign prostatic hyperplasia with lower urinary tract symptoms; N13.8 Other obstructive and reflux uropathy; Z87.442 Personal history of urinary calculi | CPT/HCPCS: 81003; 99212 ==

== ENCOUNTER 2025-04-16 10:02 | Outpatient (AMB) | payer OTHER, SELFPAY ==
--- NOTE | 2025-04-16 10:07 | A.OFFVIS_ITS ---
Intake Visit Reasons: 6m f/u Intake Note: Patient is present for 6m follow up Urology Med: Sildenafil, Tamsulosin Antibiotic Allergy: None Blood Thinner: None Canal Equipment Mechanic Required: No Allergies No Known Allergies Allergy (Verified 04/16/25 10:08) HPI Comments Details: 10/14/24--Antoine is a 54-year-old male with history of nephrolithiasis and evaluated for microscopic hematuria, s/p outpatient cystoscopy 09/15/24. Discussed no suspicious bladder lesions. Pt states doing well since procedure. Will continue to monitor kidneys. Flomax for BPH. 07/22/2024--Antoine is a 54-year-old male with history of nephrolithiasis. Discussed further evaluation with cystoscopy. History of anxiety.he patient feels very anxious regarding the cystoscopy procedure in the office. We will schedule outpatient cystoscopy 06/11/24--Here for fu, he states he has not used the Viagra as yet. Denies urinary symptoms. Discussed UA - persistent microscopic hematuria. He had ur ine cytology checked 07/2023 by his primary which was negative for malignant cells. Will repeat urine for cytology, follow up cystoscopy. The patient feels very anxious regarding the cystoscopy procedure. I discussed that I can prescribe Valium for him to take that morning and he should have his or someone bring him to the office. 02/12/2024-Antoine is here with his in follow-up post renal ultrasound. I have reviewed the renal ultrasound 01/27/24-results. Left kidney hydronephrosis is resolved no nephro or ureterolithiasis noted incidental 1.2 cm right renal cyst. I have discussed at length diet modification to decrease risk of forming more kidney stones. I have discussed low oxalate diet and specific foods to avoid including certain green leafy vegetables, chocalate, nuts, tea, beets, rubarb; low sodium, decreased use of animal protein and the importance of hydration drinking up to 2-2.5 liters of fluids and use of adding lemon to water to increase citrate in the diet. A pamphlet is also provided today. The patient complains of erectile dysfunction. He used Viagra about a year ago without success. He states that he has had some anxiety regarding problems with hidradenitis which affected his groin area. He is currently on Humira and has had improvement in these symptoms. I have discussed trying the Viagra again 100 mg half tab to 1 tab prior to intercourse. Discussed side effects including headache, visual transient blue haze, erection lasting longer than 4 hours he needs to seek immediate emergency attention. Plan-diet modification to decrease risk for kidney stones. Viagra sent to his pharmacy with GoodRx coupon. Follow-up in 4 months. 01/07/24--Antoine is a 53-year-old male who was in the emergency room [id number] with left flank pain. I have reviewed chart he had a CT abdomen pelvis noting a 4 mm left ureteral distal stone with moderate hydronephrosis. The patient is currently asymptomatic. He thinks he passed the stone. --discussed follow-up renal ultrasound to confirm hydronephrosis resolved COUNTS INCLUDE 234 BEDS AT THE [facility] Medical History Encounter for routine laboratory testing Impacted cerumen, bilateral Family history of abdominal aortic aneurysm Essential hypertension Erectile dysfunction Hidradenitis suppurativa Epidermal cyst Cholecystitis, acute with cholelithiasis Normocytic anemia Common bile duct (CBD) obstruction Gallstones Surgical History Hx of colonoscopy History of ERCP Hx of adenoidectomy Hx of inguinal hernia repair History of laparoscopic cholecystectomy Family History Father High cholesterol Heavy smoker ASHD (arteriosclerotic heart disease) Mother Cirrhosis Diabetes mellitus Brother Substance use disorder Mental health disorder Aortic aneurysm Bicuspid aortic valve Sister No problems noted. Son No problems noted. Daughter No problems noted. Maternal Uncle ASHD (arteriosclerotic heart disease) Paternal Aunt Rheumatoid arthritis Brother Bicuspid aortic valve Aortic aneurysm Brother Aortic aneurysm Social History Housing: House Alcohol intake: never Comment: overflow obs Patient Tobacco Use Status: Former Tobacco user e-Cigarette/Vaping Use: Never Used Second Hand Smoke Exposure: No Substance Use Type: Marijuana Advance Directives Date on File: 09/23/20 service: No Current occupational status: unemployed Cognitive needs: No Hearing needs: No Vision needs: Yes Results AMB Urinalysis, Automated UA Leukoctes 0 Sera/uL Last Edit by Ivelisse Pham on 04/16/25 14:15 UA Nitrite Negative Last Edit by Ivelisse Pham on 04/16/25 14:15 UA Urobilinogen 3.5 mg/dL Last Edit by Ivelisse Pham on 04/16/25 14:15 UA Protein 1 mg/dL Last Edit by Ivelisse Pham on 04/16/25 14:15 UA pH 6.5 Last Edit by Ivelisse Pham on 04/16/25 14:15 UA Blood 80 Maulik/uL Last Edit by Ivelisse Pham on 04/16/25 14:15 UA Specific [place] 1.015 Last Edit by Ivelisse Pham on 04/16/25 14:15 UA Ketone Negative Last Edit by Ivelisse Pham on 04/16/25 14:15 UA Bilirubin 0 mg/dL Last Edit by Ivelisse Pham on 04/16/25 14:15 UA Glucose 0 mg/dL Last Edit by Ivelisse Pham on 04/16/25 14:15 Assessment & Plan Assessment & Plan (1) BPH loc w urin obs/LUTS: Code(s): N40.1 - Benign prostatic hyperplasia with lower urinary tract symptoms Category: Medical (2) Screening PSA (prostate specific antigen): Code(s): Z12.5 - Encounter for screening for malignant neoplasm of prostate Category: Medical Orders: Orders PSA,Total (Free>4and<10) Today N40.1 - Benign prostatic hyperplasia with lower urinary tract symptoms, Z12.5 - Encounter for screening for malignant neoplasm of prostate AMB Urinalysis Automated Today N40.1 - Benign prostatic hyperplasia with lower urinary tract symptoms, Z12.5 - Encounter for screening for malignant neoplasm of prostate Medications: New clotrimazole-betamethasone 1-0.05 % apply to affected area on groin 1 appl topical BID 45 grams 1RF Refilled sildenafil (Viagra) may use 1/2 - 1 tab administer 30 minutes to 2 hours before activity. [id number] [facility] [place] [id number] Member [id number] 100 mg PO DAILY PRN 30 tabs 1RF sexual activity Coding Diagnoses BPH loc w urin obs/LUTS N40.1 Screening PSA (prostate specific antigen) Z12.5
== END 2025-04-16 11:13 | disposition home or self-care (01) ==
LOC: HO.HUSH 10:02
PROVIDERS: PCP Internal Medicine; Visit Provider Urology
DX: N40.1 Benign prostatic hyperplasia with lower urinary tract symptoms (principal); Z12.5 Encounter for screening for malignant neoplasm of prostate

== ENCOUNTER 2025-04-16 10:02 | Outpatient (REF) | payer OTHER, SELFPAY ==
[2025-04-16 16:30] LABS: Urine Cytology See Pathology rpt
== END 2025-04-16 10:03 | disposition home or self-care (01) ==
LOC: HO.LNP 10:02
PROVIDERS: PCP Internal Medicine; Visit Provider Urology
DX: N40.1 Benign prostatic hyperplasia with lower urinary tract symptoms (principal); N13.8 Other obstructive and reflux uropathy; R31.29 Other microscopic hematuria; N20.0 Calculus of kidney; N52.9 Male erectile dysfunction, unspecified; Z12.5 Encounter for screening for malignant neoplasm of prostate
CPT/HCPCS: 81003; 88112

== ENCOUNTER 2025-04-26 10:23 | Outpatient (REF) | payer OTHER, SELFPAY ==
[2025-04-26 13:39] LABS: PSA,Total (Free>4and<10) 0.51 ng/mL (0.00-4.00)
== END 2025-04-26 10:24 | disposition home or self-care (01) ==
LOC: HO.HMGCLDS 10:23
PROVIDERS: PCP Internal Medicine; Visit Provider Urology
DX: Z12.5 Encounter for screening for malignant neoplasm of prostate (principal); N40.1 Benign prostatic hyperplasia with lower urinary tract symptoms
CPT/HCPCS: 36415; 84153